=== PATIENT | male | born 1950 | race Caucasian/White ===

== ENCOUNTER → 2017-01-15 | Outpatient (REF) | payer SELFPAY ==
[~2017-01-15] MED LIST: APAP325T PO; ASPI81TA85 PO; ATOR1TAB18 PO; DIGO0.25 PO; ELIQ5TAB PO; LEVA750T PO; LOSA100T36 PO; METO25TA74 PO; METO50TA2 PO; MULT1TAB8 PO
[2017-01-15 09:26] LABS: BASO % 0.8 % (0.0-1.0); EOS # 0.4 K/mm3 (0.0-0.50); LARGE UNSTAINED CELL # 0.2 K/mm3 (0.0-0.4); LARGE UNSTAINED CELL % 3.2 % (0.0-4.0); LYMPH # 1.5 K/mm3 (1.5-4.5); LYMPH % 25.5 % (24.0-44.0); MEAN CORPUSCULAR HEMOGLOBIN 31.5 pg (27.0-33.0); MEAN CORPUSCULAR HGB CONC 33.6 g/dl (32.0-36.5); MEAN CORPUSCULAR VOLUME 93.6 fl (80.0-96.0); MONO # 0.5 K/mm3 (0.0-0.8); MONO % 7.9 % (0.0-5.0); NEUTROPHILS # 3.3 K/mm3 (1.8-7.7); NEUTROPHILS % 55.7 % (36.0-66.0); PLATELET COUNT, AUTOMATED 160 k/mm3 (150-450); RED CELL DISTRIBUTION WIDTH 13.2 % (11.5-14.5); WHITE BLOOD COUNT 5.9 K/mm3 (4.0-10.0)
[2017-01-15 10:06] LABS: ALBUMIN 3.5 GM/DL (3.2-5.2); ALBUMIN/GLOBULIN RATIO 0.92 (1.00-1.93); ALKALINE PHOSPHATASE 91 U/L (45-117); ALT/SGPT 32 U/L (12-78); ANION GAP 8 MEQ/L (8-16); AST/SGOT 27 U/L (15-37); BILIRUBIN,TOTAL 0.5 MG/DL (0.2-1.0); BLOOD UREA NITROGEN 24 MG/DL (7-18); CALCIUM LEVEL 8.7 MG/DL (8.8-10.2); CARBON DIOXIDE LEVEL 27 MEQ/L (21-32); CHLORIDE LEVEL 108 MEQ/L (98-107); CHOLESTEROL LEVEL 110 MG/DL (<200); GLOMERULAR FILTRATION RATE > 60.0 (>49); GLUCOSE, FASTING 90 MG/DL (80-110); POTASSIUM SERUM 4.3 MEQ/L (3.5-5.1); SODIUM LEVEL 143 MEQ/L (136-145); TOTAL PROTEIN 7.3 GM/DL (6.4-8.2); TRIGLYCERIDES LEVEL 71 MG/DL (<150)
== END ==
LOC: SKLAB3 08:00
PROVIDERS: ATTEND Family Medicine
DX: I10 Essential (primary) hypertension (principal); E78.5 Hyperlipidemia, unspecified; I48.91 Unspecified atrial fibrillation

== ENCOUNTER → 2017-03-27 | Outpatient (REF) | payer MEDICARE ==
[2017-03-27 08:00] LABS: CALCIUM LEVEL 8.9 MG/DL (8.8-10.2); CREATININE FOR GFR 1.28 MG/DL (0.70-1.30); GLOMERULAR FILTRATION RATE 59.5 (>49); POTASSIUM SERUM 3.7 MEQ/L (3.5-5.1)
== END ==
LOC: SKLAB3 08:00
PROVIDERS: ATTEND Family Medicine
DX: I50.9 Heart failure, unspecified (principal)

== ENCOUNTER → 2017-04-16 | Outpatient (REF) | payer MEDICARE ==
[~2017-04-16] MED LIST changes: +ACEP650S PR; +ACUL0.5S OD; +ALDA25TA2 PO; +ANUS2.5C2 PR; -APAP325T PO; +APAP325T4 PO; +ASPI81CH32 PO; -ATOR1TAB18 PO; +ATOR40TA75 PO; +ATOR80TA59 PO; +CHLO125TA PO; +DULC10SU2 PR; +ENEMENE6 PR; +FERR1TAB8 PO; +KETO5OPD OD; -LEVA750T PO; +LEVA750T7 PO; +LOSA50TA20 PO; +METO1TAB32 PO; +METO1TAB7 PO; -METO25TA74 PO; -METO50TA2 PO; +METO50TA7 PO; +MILKSUS PO; +MIRA33504 PO; +PANT40TA2 PO; +PRED1SUS OD; +PREDFORTE OU; +REFR0.5D8 OU; +REFR1DRO8 OU; +REFRESH PM; +REFROIN OP; +ROBILIQ PO; +SENN-23 PO; +SENN8.6C PO; +TOBR0.3S OD; +TYLE325T5 PO
[2017-04-16 09:24] LABS: BASO % 0.6 % (0.0-1.0); EOS # 0.5 K/mm3 (0.0-0.50); EOS % 6.9 % (0.0-3.0); LARGE UNSTAINED CELL # 0.2 K/mm3 (0.0-0.4); LARGE UNSTAINED CELL % 2.1 % (0.0-4.0); LYMPH # 1.4 K/mm3 (1.5-4.5); LYMPH % 20.7 % (24.0-44.0); MEAN CORPUSCULAR HEMOGLOBIN 32.8 pg (27.0-33.0); MEAN CORPUSCULAR HGB CONC 34.4 g/dl (32.0-36.5); MEAN CORPUSCULAR VOLUME 95.2 fl (80.0-96.0); MONO # 0.5 K/mm3 (0.0-0.8); MONO % 7.5 % (0.0-5.0); NEUTROPHILS # 4.3 K/mm3 (1.8-7.7); NEUTROPHILS % 62.2 % (36.0-66.0); PLATELET COUNT, AUTOMATED 158 k/mm3 (150-450); RED CELL DISTRIBUTION WIDTH 13.6 % (11.5-14.5); WHITE BLOOD COUNT 6.9 K/mm3 (4.0-10.0)
[2017-04-16 10:14] LABS: ALBUMIN 3.5 GM/DL (3.2-5.2); ALBUMIN/GLOBULIN RATIO 0.92 (1.00-1.93); BILIRUBIN,TOTAL 0.7 MG/DL (0.2-1.0); CALCIUM LEVEL 8.9 MG/DL (8.8-10.2); CREATININE FOR GFR 1.58 MG/DL (0.70-1.30); GLOMERULAR FILTRATION RATE 46.7 (>49); POTASSIUM SERUM 4.5 MEQ/L (3.5-5.1); TOTAL PROTEIN 7.3 GM/DL (6.4-8.2)
== END ==
LOC: SKLAB3 07:00
PROVIDERS: ATTEND Family Medicine
DX: I10 Essential (primary) hypertension (principal); I48.91 Unspecified atrial fibrillation

== ENCOUNTER 2017-07-04 07:58 | Day surgery (SDC) | payer MEDICARE, MEDICAID ==
[~2017-07-04] VITALS: Ht 167.6 cm; Wt 83.2 kg
[~2017-07-04 07:58] MED LIST changes: -ACEP650S PR; +ACETYLCHOLINE OPHTH SOLN 1% 2ML (MIOCHOL-E) As Ordered ONE; -ACUL0.5S OD; -ANUS2.5C2 PR; -ASPI81CH32 PO; -ATOR40TA75 PO; +BALANCED SALT IRRIGATION SOLUTION 500ML BAG (FOR OR EYE MACHINE) As Ordered ONE; +CEFUROXIME 1MG/0.1ML INTRACAMERAL INJ As Ordered ONE; +CYCLOPENTOLATE 2% OPHTH SOLN 2ML BTL OD ONE; -DULC10SU2 PR; -ENEMENE6 PR; -FERR1TAB8 PO; +HEALON DUET (HEALON 10MG/ML 0.55ML & HEALON ENDOCOAT 30MG/ML 0.85ML) As Ordered ONE; -KETO5OPD OD; +LIDOCAINE 1% SDV 5 ML VIAL As Ordered ONE; +LIDOCAINE 3.5 % 1ML OPHTH TOPICAL GEL OU ONE; -LOSA50TA20 PO; -MILKSUS PO; -MIRA33504 PO; +OFLOXACIN 0.3 % (OCUFLOX) OPTH SOL 5ML OD ONE; -PANT40TA2 PO; +PHENYLEPHRINE 2.5% OPHTH SOL 2ML OD ONE; +POVIDONE-IODINE 5% OPHTH PREP SOL 30ML As Ordered ONE; -PRED1SUS OD; -PREDFORTE OU; -REFR0.5D8 OU; -REFR1DRO8 OU; -REFRESH PM; -REFROIN OP; -ROBILIQ PO; -SENN-23 PO; -SENN8.6C PO; -TOBR0.3S OD; +TROPICAMIDE 1% OPHTH SOLN 2ML OD ONE; -TYLE325T5 PO
[2017-07-04] MEDS ORDERED: LR 1,000 ML IV ONE (08:00)
[2017-07-04] MEDS ORDERED: TROPICAMIDE 1% OPHTH SOLN 2ML As Ordered ONE (08:05)
[2017-07-04] MEDS ORDERED: OFLOXACIN 0.3 % (OCUFLOX) OPTH SOL 5ML As Ordered ONE (08:05)
[2017-07-04] MEDS ORDERED: PHENYLEPHRINE 2.5% OPHTH SOL 2ML As Ordered ONE (08:05)
[2017-07-04] MEDS ORDERED: CYCLOPENTOLATE 2% OPHTH SOLN 2ML BTL As Ordered ONE (08:05)
[2017-07-04] MEDS ORDERED: ELIQ5TAB PO (08:33)
[2017-07-04] MEDS ORDERED: ACUL0.5S OD (08:33)
[2017-07-04] MEDS ORDERED: SENN8.6C PO (08:33)
[2017-07-04] MEDS ORDERED: REFR1DRO8 OU (08:33)
[2017-07-04 09:45] VITALS: BP 115/58
--- NOTE | 2017-07-04 10:42 | RO ---
DATE OF PROCEDURE: 07/04/2017 PREPROCEDURE DIAGNOSIS: Age-related nuclear cataract, right eye. POSTPROCEDURE DIAGNOSIS: Age-related nuclear cataract, right eye. PROCEDURE PERFORMED: Phacoemulsification and posterior chamber intraocular lens implantation, right eye. The lens used is a PCB 00 20.5 diopter. SURGEON: Lin Beckett MD DIRECTOR OF MECHANICAL ENGINEERING: ANESTHESIA: Topical with sedation. DESCRIPTION OF PROCEDURE: The patient was prepped and draped in the usual fashion. A lid speculum was placed between the lids. The eye was fixated. A stab incision was made to the anterior chamber, and 1% nonpreserved lidocaine was instilled. Then, viscoelastic was instilled. The eye was refixated. A 2.75 mm sapphire keratome was used to make a clear corneal temporal limbal incision. Capsulorrhexis was begun with a 30-gauge bent needle and then carried out in a circular fashion with capsulorrhexis forceps. The lens was hydrodissected, and then the phacoemulsification unit was used to make a groove in the nucleus in two meridians. The nucleus was then cracked into four quadrants. Each quadrant was removed with the phacoemulsification unit. Any remaining cortex was removed with the irrigation and aspiration (I and A) unit. Capsular bag was refilled with viscoelastic. A posterior chamber intraocular lens was placed in the capsular bag without difficulty. Any remaining viscoelastic was removed with the I and A unit. The wound was hydrated, and Miochol and cefuroxime were instilled into the anterior chamber. The patient tolerated the procedure well and went to the recovery room in stable condition.
== END 2017-07-04 10:15 | disposition home or self-care (01) ==
LOC: M SDC 07:58
PROVIDERS: ATTEND Ophthalmology
DX: H25.11 Age-related nuclear cataract, right eye (principal); I10 Essential (primary) hypertension; I48.91 Unspecified atrial fibrillation; E78.5 Hyperlipidemia, unspecified; Z79.82 Long term (current) use of aspirin; Z79.899 Other long term (current) drug therapy

== ENCOUNTER 2017-07-06 18:58 | Inpatient (IN) | payer MEDICARE, MEDICAID ==
[~2017-07-06] VITALS: Ht 167.6 cm; Wt 85.7 kg
[~2017-07-06 18:58] MED LIST changes: -ACEP650S PR; -ANUS2.5C2 PR; -ASPI81CH32 PO; -ATOR40TA75 PO; -DULC10SU2 PR; -ENEMENE6 PR; -FERR1TAB8 PO; -KETO5OPD OD; -LOSA50TA20 PO; -MILKSUS PO; -MIRA33504 PO; -PANT40TA2 PO; -PRED1SUS OD; -PREDFORTE OU; -REFR0.5D8 OU; -REFRESH PM; -REFROIN OP; -ROBILIQ PO; -SENN-23 PO; -TOBR0.3S OD; -TYLE325T5 PO
[2017-07-06] MEDS ORDERED: REFRESH PM (19:30)
[2017-07-06] MEDS ORDERED: PRED1SUS OD ×3 (19:30→22:15)
[2017-07-06] MEDS ORDERED: CHLO125TA PO (19:30)
[2017-07-06] MEDS ORDERED: PREDFORTE OU (19:30)
[2017-07-06] MEDS ORDERED: REFR0.5D8 OU (19:30)
[2017-07-06] MEDS ORDERED: ACUL0.5S OD (19:30)
[2017-07-06] MEDS ORDERED: TOBR0.3S OD ×2 (19:30)
[2017-07-06] MEDS ORDERED: LOSA50TA20 PO (19:30)
[2017-07-06 20:54] LABS: ADD MORPHOLOGY? YES; BASO % 0.4 % (0.0-1.0); EOS % 0.2 % (0.0-3.0); INR 1.69; LARGE UNSTAINED CELL # 0.1 K/mm3 (0.0-0.4); LARGE UNSTAINED CELL % 1.4 % (0.0-4.0); LYMPH # 1.2 K/mm3 (1.5-4.5); LYMPH % 12.7 % (24.0-44.0); MEAN CORPUSCULAR HEMOGLOBIN 31.3 pg (27.0-33.0); MEAN CORPUSCULAR HGB CONC 30.5 g/dl (32.0-36.5); MEAN CORPUSCULAR VOLUME 102.5 fl (80.0-96.0); MONO # 0.7 K/mm3 (0.0-0.8); MONO % 7.3 % (0.0-5.0); NEUTROPHILS # 7.4 K/mm3 (1.8-7.7); PLATELET COUNT, AUTOMATED 205 k/mm3 (150-450); RED CELL DISTRIBUTION WIDTH 16.6 % (11.5-14.5); WHITE BLOOD COUNT 9.5 K/mm3 (4.0-10.0)
[2017-07-06 21:03] LABS: ALBUMIN 2.9 GM/DL (3.2-5.2); ALBUMIN/GLOBULIN RATIO 0.81 (1.00-1.93); ALKALINE PHOSPHATASE 64 U/L (45-117); ALT/SGPT 23 U/L (12-78); ANION GAP 6 MEQ/L (8-16); AST/SGOT 20 U/L (15-37); BILIRUBIN,DIRECT < 0.1 MG/DL (0.0-0.2); BILIRUBIN,TOTAL 0.4 MG/DL (0.2-1.0); BLOOD UREA NITROGEN 69 MG/DL (7-18); CALCIUM LEVEL 8.2 MG/DL (8.8-10.2); CARBON DIOXIDE LEVEL 26 MEQ/L (21-32); CHLORIDE LEVEL 112 MEQ/L (98-107); CREATININE FOR GFR 1.88 MG/DL (0.70-1.30); GLOMERULAR FILTRATION RATE 38.1 (>49); GLUCOSE, FASTING 158 MG/DL (80-110); POTASSIUM SERUM 4.8 MEQ/L (3.5-5.1); SODIUM LEVEL 144 MEQ/L (136-145); TOTAL PROTEIN 6.5 GM/DL (6.4-8.2)
[2017-07-06] MEDS ORDERED: PANTOPRAZOLE 40MG INJ (PROTONIX) (C9113) IV ONE (21:45)
[2017-07-06] MEDS ORDERED: ASPI81CH32 PO (22:01)
[2017-07-06 22:02] LABS: ANISOCYTOSIS 2+; HYPOCHROMASIA 2+; POLYCHROMASIA 1+
[2017-07-06] MEDS ORDERED: ATOR40TA75 PO (22:07)
[2017-07-06] MEDS ORDERED: REFROIN OP (22:07)
[2017-07-06] MEDS ORDERED: KETO5OPD OD (22:13)
[2017-07-06] MEDS ORDERED: SENN-23 PO (22:13)
[2017-07-06] MEDS ORDERED: PANTOPRAZOLE SODIUM 40 MG in D5W MINI-BAG PLUS 50 ML IV SCH (22:15)
[2017-07-06] MEDS ORDERED: ONDANSETRON 4MG/2ML VIAL (J2405) IV ONE (22:15)
[2017-07-06] MEDS ORDERED: MIRA33504 PO (22:21)
[2017-07-06] MEDS ORDERED: MILKSUS PO (22:21)
[2017-07-06] MEDS ORDERED: DULC10SU2 PR (22:21)
[2017-07-06] MEDS ORDERED: ANUS2.5C2 PR (22:21)
[2017-07-06] MEDS ORDERED: TYLE325T5 PO (22:21)
[2017-07-06] MEDS ORDERED: ACEP650S PR (22:21)
[2017-07-06] MEDS ORDERED: ROBILIQ PO (22:21)
[2017-07-06] MEDS ORDERED: ENEMENE6 PR (22:21)
[2017-07-06] MEDS ORDERED: ONDANSETRON 4MG/2ML VIAL (J2405) IV PRN (23:30)
--- NOTE | 2017-07-06 23:32 | HPEPDOC ---
Medical History and Physical Date of Admission Jul 06, 2017 at 22:03 History and Physical PRIMARY CARE PROVIDER: Dr. White ATTENDING: Dr. Jeramie Crooks CHIEF COMPLAINT: Abnormal labs HISTORY OF PRESENT ILLNESS: This is a 67-year-old male past medical history of atrial fibrillation on Eliquis, cerebral palsy, hypertension, iron deficiency anemia, hyperlipidemia, CKD stage III baseline creatinine 1.5-1.7. Patient was sent to the emergency department after his hemoglobin was noted to be less than 5. Patient denies any chest pain/shortness breath/palpitations. No nausea/vomiting/ abdominal pain. Histories are limited given his baseline cerebral palsy. He denies any melanotic/bloody stools/hemoptysis/hematemesis/hematuria. In the ED patient was found to have positive FOBT. PAST MEDICAL HISTORY: As per HPI PAST SURGICAL HISTORY: Hemorrhoidectomy, tonsillectomy SOCIAL HISTORY: No tobacco, alcohol, illicit drug use. History of cerebral palsy. FAMILY HISTORY: Noncontributory ALLERGIES: Please see below. REVIEW OF SYSTEMS: HEENT: Denies sore throat/headache CARDIOVASCULAR: Denies chest pain/palpitations RESPIRATORY: Denies shortness of breath/cough GASTROINTESTINAL: denies nausea/vomiting GENITOURINARY: Denies dysuria/urinary urgency. MUSCULOSKELETAL: Denies myalgias/arthralgias NEUROLOGICAL: Denies any focal weakness HOME MEDICATIONS: Please see below. PHYSICAL EXAMINATION: Vitals: (see below) General: No acute distress, laying comfortably in bed. HEENT: Moist mucous membranes. Neck: No JVD or lymphadenopathy Cardiac: Irregularly irregular. 3/6 systolic murmur at the left lower sternal border. Pulm: Diminished breath sounds at the bases b/l. No wheezing, rhonchi Abd: NT/ND + BS. Obese Ext: Trace to 1+ pitting edema bilateral lower extremities. No cyanosis Following commands, moving all extremities. LABORATORY DATA: See below. IMAGING: MICROBIOLOGY: Please see below. ASSESSMENT/PLAN: 1. Acute blood loss anemia, likely secondary to upper GI bleed. Hemoglobin 5.0. Last hemoglobin in March noted to be 13. Patient is currently asymptomatic. Will be transfused 3 units PRBC. On protonic strip. GI consulted. Monitor on telemetry. CBC every 6 hours. No acute bleeding at this time. Hold aspirin and Eliquis for now. 2. Hypertension- hold BP meds for now. 3. Atrial fibrillation- hold aspirin and Eliquis for now. 4. History of cerebral palsy 5. CK D stage III- baseline creatinine 1.5-1.7. Stable. 6. History of iron deficiency anemia DVT prophylaxis- SCDs. Patient was followed by Dr. Jeramie Crooks starting 07/07/17 at 7 AM. Vital Signs Vital Signs Date Time Temp Pulse Resp B/P (MAP) Pulse Ox O2 Delivery O2 Flow Rate FiO2 07/06/17 22:00 07/06/17 21:58 78 96 07/06/17 21:57 97.3 18 Room Air Laboratory Data Labs 24H Laboratory Tests 2 07/06/17 19:52: White Blood Count 9.5, Red Blood Count 1.59L, Hemoglobin 5.0*L, Hematocrit 16.3L , Mean Corpuscular Volume 102.5H, Mean Corpuscular Hemoglobin 31.3, Mean Corpuscular Hemoglobin Concent 30.5L, Red Cell Distribution Width 16.6H, Platelet Count 205, Neutrophils (%) (Auto) 78.0H, Lymphocytes (%) (Auto) 12.7L, Monocytes (%) (Auto) 7.3H, Eosinophils (%) (Auto) 0.2, Basophils (%) (Auto) 0.4 , Neutrophils # (Auto) 7.4, Lymphocytes # (Auto) 1.2L, Monocytes # (Auto) 0.7, Eosinophils # (Auto) 0.0, Basophils # (Auto) 0.0, Large Unclassified Cells % 1.4 , Large Unclassified Cells # 0.1, Platelet Estimate NORMAL, Polychromasia 1+, Hypochromasia 2+, Anisocytosis 2+, Macrocytosis 1+, Prothrombin Time 20.4H, Prothromb Time International Ratio 1.69, Activated Partial Thromboplast Time 34.5, Anion Gap 6L, Glomerular Filtration Rate 38.1L, Calcium Level 8.2L, Aspartate Amino Transf (AST/SGOT) 20, Alanine Aminotransferase (ALT/SGPT) 23, Alkaline Phosphatase 64, Total Bilirubin 0.4, Direct Bilirubin < 0.1, Total Creatine Kinase 94, Creatine Kinase MB 3.3, Creatine Kinase MB Relative Index 3.51, Troponin I 0.02, Total Protein 6.5, Albumin 2.9L, Albumin/Globulin Ratio 0.81L CBC/BMP Laboratory Tests 07/06/17 19:52 Red Blood Count 1.59 L, Mean Corpuscular Volume 102.5 H, Mean Corpuscular Hemoglobin 31.3, Mean Corpuscular Hemoglobin Concent 30.5 L, Red Cell Distribution Width 16.6 H, Neutrophils (%) (Auto) 78.0 H, Lymphocytes (%) (Auto ) 12.7 L, Monocytes (%) (Auto) 7.3 H, Eosinophils (%) (Auto) 0.2, Basophils (%) (Auto) 0.4, Neutrophils # (Auto) 7.4, Lymphocytes # (Auto) 1.2 L, Monocytes # ( Auto) 0.7, Eosinophils # (Auto) 0.0, Basophils # (Auto) 0.0 Home Medications Scheduled (Multi Vitamin Daily) 1 Tab Tab, 1 TAB PO DAILY (Aspirin 81 Low Dose) 81 Mg Chw, 81 MG PO DAILY (Refresh P.m.) 1 Oin Oin, 1 OIN OP QHS Acetaminophen (Apap) 325 Mg Tab, 650 MG PO QHS Apixaban Base (Eliquis) 5 Mg Tab, 5 MG PO BID Atorvastatin Calcium (Atorvastatin Calcium) 40 Mg Tab, 40 MG PO 3XW SUNDAY, SUNDAY, AND SUNDAY Carboxymethylcellulose Sodium (Refresh Tears) 0.5 % Arnel, 0.5 % OU QID Chlorthalidone (Chlorthalidone) 12.5 Mg Halftab, 12.5 MG PO DAILY Docusate Sod/Senna (Senna-S 8.6-50 mg) 1 Tab Tab, 1 TAB PO DAILY Ketorolac Tromethamine (Ketorolac Tromethamine) 0.5 % Heather, 1 DROP OD QID TO STOP 08/01/17 Losartan Potassium (Losartan Potassium) 50 Mg Tab, 50 MG PO QHS Metoprolol Succinate (Metoprolol Succinate ER) 50 Mg Tab, 50 MG PO DAILY Prednisolone Acetate (Pred Forte 1% Opth Susp) 1 % Rosalba, 1 DROP OD QID TO END 07/18/17 Spironolactone (Aldactone) 25 Mg Tab, 12.5 MG PO DAILY Tobramycin Sulfate (Tobrex 0.3% Opth Heather) 0.3 % Heather, 1 DROP OD QID TO END 9/13/17 Scheduled PRN (Enema Disposable) 1 Jensen Jensen, 1 JENSEN [place] DAILY PRN for CONSTIPATION (Robitussin Peak Cold Coug 10-200 mg/5Ml) 1 Liq Liq, 10 ML PO Q4H PRN for COUGH Acetaminophen (Acephen) 650 Mg Sup, 650 MG VA Q4H PRN for PAIN / FEVER Acetaminophen (Tylenol) 325 Mg Tab, 650 MG PO Q4H PRN for PAIN / FEVER Bisacodyl (Dulcolax) 10 Mg Sup, 10 MG VA DAILY PRN for CONSTIPATION Hydrocortisone (Anusol-Hc) 2.5 % Cre, 1 DOSE VA QID PRN for HEMORRHOIDS Milk Of Magnesia (Milk of Magnesia) 1,200 Mg/15 Ml Rosalba, 30 ML PO DAILY PRN for CONSTIPATION Polyethylene Glycol (Miralax) 1 Pow Pow, 1 PKT PO DAILY PRN for CONSTIPATION Allergies Coded Allergies: No Known Allergies (Verified , 07/04/17) JOANN WHITE MD Jul 06, 2017 23:32
[2017-07-07] VITALS (8 sets, daily range): BP systolic 111–136; BP diastolic 55–74
[2017-07-07] MEDS: PANTOPRAZOLE SODIUM 40 MG in D5W MINI-BAG PLUS 50 ML IV SCH ×4 (01:55→14:26)
[2017-07-07 05:17] LABS: MEAN CORPUSCULAR HEMOGLOBIN 31.7 pg (27.0-33.0); MEAN CORPUSCULAR HGB CONC 32.8 g/dl (32.0-36.5); RED CELL DISTRIBUTION WIDTH 16.3 % (11.5-14.5); WHITE BLOOD COUNT 10.4 K/mm3 (4.0-10.0)
[2017-07-07 05:31] LABS: MEAN CORPUSCULAR VOLUME 96.6 fl (80.0-96.0)
[2017-07-07 07:59] LABS: ANION GAP 11 MEQ/L (8-16); BLOOD UREA NITROGEN 75 MG/DL (7-18); CALCIUM LEVEL 8.4 MG/DL (8.8-10.2); CARBON DIOXIDE LEVEL 21 MEQ/L (21-32); CHLORIDE LEVEL 116 MEQ/L (98-107); CREATININE FOR GFR 1.82 MG/DL (0.70-1.30); GLOMERULAR FILTRATION RATE 39.5 (>49); GLUCOSE, FASTING 118 MG/DL (80-110); MAGNESIUM LEVEL 2.7 MG/DL (1.8-2.4); PERCENT SATURATION 4.2 % (19.7-50.0); SODIUM LEVEL 148 MEQ/L (136-145); TOTAL IRON BINDING CAPACITY 288 UG/DL (250-450)
--- NOTE | 2017-07-07 08:16 | ECGEPIP ---
Stationary ECG Study [facility] - ED Test Date: 2017-07-06 Pat Name: ELENITA FUENTES Department: Room: [place] [address] Gender: M Medical Authorization Specialist: suzan : [id number] Requested By: DEMARCUS Roque Order Number: [id number] Reading MD: Iqra Guerrero Measurements Intervals [place] Rate: 90 P: 32 RI: 155 QRS: -7 QRSD: 122 T: 6 QT: 359 QTc: 441 Interpretive Statements SINUS RHYTHM LEFT VENTRICULAR HYPERTROPHY AND ST-T CHANGE INCREASED RATE 08/04/16 Electronically Signed On 07-07-2017 8:16:29 EDT by Iqra Guerrero
--- NOTE | 2017-07-07 08:55 | REP ---
Clinical: Shortness of breath . Comparison: 01/17/2016 . Findings: The mediastinum and cardiac silhouette are stable and within normal limits for portable technique. The lung silverman are clear without acute consolidation, effusion, or pneumothorax. Skeletal structures are intact. Impression: No acute cardiopulmonary process appreciated. Signed by Benjamin Priest MD 07/07/2017 08:46 A
[2017-07-07] MEDS: PANTOPRAZOLE 40MG INJ (PROTONIX) (C9113) IV SCH (09:00)
[2017-07-07 09:05] LABS: MEAN CORPUSCULAR HEMOGLOBIN 32.3 pg (27.0-33.0); MEAN CORPUSCULAR HGB CONC 33.5 g/dl (32.0-36.5); MEAN CORPUSCULAR VOLUME 96.4 fl (80.0-96.0); RED CELL DISTRIBUTION WIDTH 15.8 % (11.5-14.5); WHITE BLOOD COUNT 11.2 K/mm3 (4.0-10.0)
[2017-07-07] MEDS: METOPROLOL SUCC (TopROL XL) 50MG **XL** TAB PO SCH (09:36)
[2017-07-07] MEDS: SPIRONOLACTONE 12.5MG PER 1/2 TABLET PO SCH (09:36)
[2017-07-07 14:17] LABS: MEAN CORPUSCULAR HEMOGLOBIN 32.4 pg (27.0-33.0); MEAN CORPUSCULAR HGB CONC 33.7 g/dl (32.0-36.5); MEAN CORPUSCULAR VOLUME 96.3 fl (80.0-96.0); RED CELL DISTRIBUTION WIDTH 15.8 % (11.5-14.5); WHITE BLOOD COUNT 12.1 K/mm3 (4.0-10.0)
--- NOTE | 2017-07-07 15:15 | IPN ---
DATE: 07/07/2017 Clement was seen in the progressive care unit (PCU). He was admitted with severe anemia. He has a history of atrial fibrillation for which he is on anticoagulant therapy with Eliquis. Stage III chronic kidney disease. He had some labs done routinely yesterday, came back after hours, called me, the on-call physician, indicated that his hemoglobin was 4.8. Hemoglobin 3 months previously was 13.9. He has a history of some anemia, and it looks like he got down in the mid 8's back in 2016. He had heme positive stool in the emergency room, has had no angie bleeding, hematemesis, melena, rectal bleeding. Denies any epistaxis or urinary bleeding. PHYSICAL EXAMINATION: Blood pressure 133/74, pulse 68, respiratory rate 20, 94% oxygen saturation. General Appearance: He is resting. He has cerebral palsy. No jugular venous distention (JVD). Lungs: Decreased breath sounds but clear. Heart: Regular rhythm with a 1/6 systolic ejection murmur. Abdomen: Soft, nontender, no masses. No peripheral edema. LABORATORY: Hemoglobin was 4.8 yesterday. It was 5.0 on recheck. After three units of packed red blood cells, it is up to 9.1. Reticulocyte count high. Sodium 148, potassium 5.0, BUN 75, creatinine 1.8, glucose 118. His percent saturation was low. TIBC normal. B12, folate pending. Reticulocyte hemoglobin content normal. IMPRESSION: 1. Severe anemia from rectal bleeding/acute blood loss. He has been transfused up to a safer level of anemia. I will consult gastroenterology to see him for endoscopy. Anticoagulant (Eliquis) and aspirin are both on hold. 2. Hypertension. His blood pressures are under good control. His antihypertensives are on hold. He uses chlorthalidone 12.5 mg, losartan 50 mg daily, metoprolol succinate 50 mg daily, spironolactone 25 mg daily. 3. Hyperlipidemia. Restart his atorvastatin 40 mg daily. 4. Recent cataract extraction. Restart his eye drops for which he was on a routine after his surgery.
[2017-07-07] MEDS: prednisoLONE ACET 1% OPHTH SUSP 5ML OD SCH ×2 (18:40→21:46)
[2017-07-07] MEDS: TOBRAMYCIN 0.3% OPHTH SOLN 5 ML OD SCH ×2 (18:41→21:46)
[2017-07-07] MEDS: KETOROLAC 0.5% OPHTH SOLN OD SCH ×2 (18:41→21:45)
[2017-07-07 19:51] LABS: MEAN CORPUSCULAR HEMOGLOBIN 31.6 pg (27.0-33.0); MEAN CORPUSCULAR HGB CONC 33.3 g/dl (32.0-36.5); MEAN CORPUSCULAR VOLUME 94.8 fl (80.0-96.0); WHITE BLOOD COUNT 10.7 K/mm3 (4.0-10.0)
[2017-07-07] MEDS: ATORVASTATIN 20 MG TAB PO SCH (21:41)
--- NOTE | 2017-07-07 23:22 | CR.PDOC ---
[facility] Consultation Consultation DATE OF CONSULTATION: Jul 07, 2017 at 16:45 REFERRING PROVIDER: Dr. Tony Craft. PRIMARY CARE PROVIDER: Dr. White ATTENDING: Dr. Jeramie Crooks CHIEF COMPLAINT: severe anemia - suspected GI bleeding. HISTORY OF PRESENT ILLNESS: 67-year-old male patient with HTN, HLD, CKD stage III ( Cr - 1.7), atrial fibrillation on Eliquis, cerebral palsy ( patient is AAO x 3), was admitted for symptoms of anemia. IN ER noted with Heme positive stools and GI was consulted for possible GI bleeding. Patient is examined bedside - He is alert and oriented and appropriately answering the questions. He denies any overt external bleeding except occasional hemorrhoidal bleeding on wiping and denied any other GI symptoms. Pertinent negative symptoms: Patient denies nausea, vomiting, diarrhea, abdominal pain, loss of appetite, early satiety or unintentional weight loss. No history of hematemesis, melena or hematochezia, hemoptysis, hematuria. Patient reports regular bowel movements. OFF Note: patient reported that he had colonoscopy in 2013 -done by Dr. Yeboah -- normal colonoscopy except hemorrhoids. ( report reviewed in provation -- same - recommended to repeat in 10 years. PAST MEDICAL HISTORY: As above. HOME MEDICATIONS: Reviewed. On eliquis. -- stopped since admission - last dose on Sunday. PAST SURGICAL HISTORY: Hemorrhoidectomy, tonsillectomy SOCIAL HISTORY: No tobacco, alcohol, illicit drug use. History of cerebral palsy. FAMILY HISTORY: Noncontributory ALLERGIES: Please see below. Prior Colonoscopy -- in 2013 - by Dr. Kyle -- normal except hemorrhoids- recommended to repeat in 10 years. 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 Skin: No rash : No hematuria, No burning sensation of the urine ENT: No ear discharge/ pain, No dysphagia. Eyes: No photophobia. PHYSICAL EXAMINATION: Vitals: noted. No fever, stable BP. General: No acute distress, AAO x 3. HEENT: Mild pallor, no icterus. Neck: No JVD or lymphadenopathy CVS: Rhythm irregular, heart sounds heard, no JVD.. RESP: Bilateral breath sounds heard, No wheezing, rhonchi Abdomen: soft, non-distended, normal bowel sounds. Extremities: Mild 2+ pitting pedal edema. 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 no LABORATORY DATA: noted. IMAGING: reviewed. Impression: - Severe anemia with Occult blood in stool with recent colonoscopy - normal at clinic -- DDx- r/o PUD vs garstic mass. r/o esophagitis. Recommendations: - Patient educated about the test results in detail all his questions answered. - Patient educated about the need for EGD -- scheduled for Sunday. . - The procedure indications, benefits, risks ( including anesthesia complications and its complications, infection, bleeding, perforation and risk of urgent surgery, cardio-pulmonary arrest and even ). Patient verbalized understanding and given informed concent ( Patient reported that even though he had HCP he takes care pf his me - Please atate on - Patient educated about cessation of alcohol / smoking/ drugs. - Patient educated about the possible differential diagnosis and plan of care. All questions answered to the patient satisfaction and Patient verbalized understanding and agreed for plan of care. Laboratory Data Labs 24H Laboratory Tests 2 07/07/17 04:13: Absolute Reticulocyte Count 142H, Percent Reticulocyte Count 6.00H, Reticulocyte Hgb Content (CHr) 31.0, Anion Gap 11, Glomerular Filtration Rate 39.5L, Blood Urea Nitrogen 75H, Creatinine 1.82H, Sodium Level 148H, Potassium Level 5.0, Chloride Level 116H, Carbon Dioxide Level 21, Calcium Level 8.4L, Magnesium Level 2.7H, Iron Level 12L, Total Iron Binding Capacity 288, Transferrin % Saturation 4.2L CBC/BMP Laboratory Tests 07/07/17 04:13 Red Blood Count 2.38 L, Mean Corpuscular Volume 96.6 #H, Mean Corpuscular Hemoglobin 31.7, Mean Corpuscular Hemoglobin Concent 32.8, Red Cell Distribution Width 16.3 H, Calcium Level 8.4 L 07/07/17 08:29 Red Blood Count 2.69 L, Mean Corpuscular Volume 96.4 H, Mean Corpuscular Hemoglobin 32.3, Mean Corpuscular Hemoglobin Concent 33.5, Red Cell Distribution Width 15.8 H 07/07/17 13:58 Red Blood Count 2.82 L, Mean Corpuscular Volume 96.3 H, Mean Corpuscular Hemoglobin 32.4, Mean Corpuscular Hemoglobin Concent 33.7, Red Cell Distribution Width 15.8 H 07/07/17 19:43 Red Blood Count 2.77 L, Mean Corpuscular Volume 94.8, Mean Corpuscular Hemoglobin 31.6, Mean Corpuscular Hemoglobin Concent 33.3, Red Cell Distribution Width 16.0 H Allergies Coded Allergies: No Known Allergies (Verified , 07/04/17) Home Medications Scheduled (Multi Vitamin Daily) 1 Tab Tab, 1 TAB PO DAILY, (Reported) (Aspirin 81 Low Dose) 81 Mg Chw, 81 MG PO DAILY, (Reported) (Refresh P.m.) 1 Oin Oin, 1 OIN OP QHS, (Reported) Acetaminophen (Apap) 325 Mg Tab, 650 MG PO QHS, (Reported) Apixaban Base (Eliquis) 5 Mg Tab, 5 MG PO BID, (Reported) Atorvastatin Calcium (Atorvastatin Calcium) 40 Mg Tab, 40 MG PO 3XW, (Reported) SUNDAY, SUNDAY, AND SUNDAY Carboxymethylcellulose Sodium (Refresh Tears) 0.5 % Arnel, 0.5 % OU QID, (Reported ) Chlorthalidone (Chlorthalidone) 12.5 Mg Halftab, 12.5 MG PO DAILY, (Reported) Docusate Sod/Senna (Senna-S 8.6-50 mg) 1 Tab Tab, 1 TAB PO DAILY, (Reported) Ketorolac Tromethamine (Ketorolac Tromethamine) 0.5 % Heather, 1 DROP OD QID, ( Reported) TO STOP 08/01/17 Losartan Potassium (Losartan Potassium) 50 Mg Tab, 50 MG PO QHS, (Reported) Metoprolol Succinate (Metoprolol Succinate ER) 50 Mg Tab, 50 MG PO DAILY, ( Reported) Prednisolone Acetate (Pred Forte 1% Opth Susp) 1 % Rosalba, 1 DROP OD QID, (Reported ) TO END 07/18/17 Spironolactone (Aldactone) 25 Mg Tab, 12.5 MG PO DAILY, (Reported) Tobramycin Sulfate (Tobrex 0.3% Opth Heather) 0.3 % Heather, 1 DROP OD QID, (Reported) TO END 07/11/17 Scheduled PRN (Enema Disposable) 1 Jensen Jensen, 1 JENSEN [place] DAILY PRN for CONSTIPATION, (Reported) (Robitussin Peak Cold Coug 10-200 mg/5Ml) 1 Liq Liq, 10 ML PO Q4H PRN for COUGH , (Reported) Acetaminophen (Acephen) 650 Mg Sup, 650 MG FL Q4H PRN for PAIN / FEVER, ( Reported) Acetaminophen (Tylenol) 325 Mg Tab, 650 MG PO Q4H PRN for PAIN / FEVER, ( Reported) Bisacodyl (Dulcolax) 10 Mg Sup, 10 MG FL DAILY PRN for CONSTIPATION, (Reported) Hydrocortisone (Anusol-Hc) 2.5 % Cre, 1 DOSE FL QID PRN for HEMORRHOIDS, ( Reported) Milk Of Magnesia (Milk of Magnesia) 1,200 Mg/15 Ml Rosalba, 30 ML PO DAILY PRN for CONSTIPATION, (Reported) Polyethylene Glycol (Miralax) 1 Pow Pow, 1 PKT PO DAILY PRN for CONSTIPATION, ( Reported) QUINTIN CASTRO MD Jul 07, 2017 23:22
[2017-07-08 04:00] VITALS: BP 115/58
[2017-07-08 04:47] LABS: MEAN CORPUSCULAR HEMOGLOBIN 32.2 pg (27.0-33.0); MEAN CORPUSCULAR HGB CONC 33.5 g/dl (32.0-36.5); MEAN CORPUSCULAR VOLUME 96.2 fl (80.0-96.0); RED CELL DISTRIBUTION WIDTH 15.6 % (11.5-14.5); WHITE BLOOD COUNT 9.1 K/mm3 (4.0-10.0)
[2017-07-08 04:56] LABS: CALCIUM LEVEL 8.5 MG/DL (8.8-10.2); CREATININE FOR GFR 1.74 MG/DL (0.70-1.30); GLOMERULAR FILTRATION RATE 41.6 (>49); MAGNESIUM LEVEL 2.4 MG/DL (1.8-2.4)
[2017-07-08 08:00] VITALS: BP 142/70
[2017-07-08] MEDS: PANTOPRAZOLE 40MG INJ (PROTONIX) (C9113) IV SCH (09:23)
[2017-07-08] MEDS: SPIRONOLACTONE 12.5MG PER 1/2 TABLET PO SCH (09:24)
[2017-07-08] MEDS: KETOROLAC 0.5% OPHTH SOLN OD SCH ×4 (09:24→21:24)
[2017-07-08] MEDS: prednisoLONE ACET 1% OPHTH SUSP 5ML OD SCH ×4 (09:24→21:23)
[2017-07-08] MEDS: TOBRAMYCIN 0.3% OPHTH SOLN 5 ML OD SCH ×4 (09:24→21:24)
[2017-07-08] MEDS: METOPROLOL SUCC (TopROL XL) 50MG **XL** TAB PO SCH (09:24)
[2017-07-08 09:49] LABS: MEAN CORPUSCULAR HEMOGLOBIN 32.2 pg (27.0-33.0); MEAN CORPUSCULAR HGB CONC 33.3 g/dl (32.0-36.5); MEAN CORPUSCULAR VOLUME 96.6 fl (80.0-96.0); RED CELL DISTRIBUTION WIDTH 15.4 % (11.5-14.5)
[2017-07-08 12:00] VITALS: BP 139/80
--- NOTE | 2017-07-08 13:00 | IPN ---
DATE: 07/08/2017 Clement has had no hematemesis, bright red blood per rectum or melena. He has been seen by gastroenterology. The note has been reviewed. Plan is for esophagogastroduodenoscopy (EGD) tomorrow. Hemoglobin has been stable overnight. PHYSICAL EXAMINATION: Blood pressure 142/70, pulse 82, respiratory rate 18, 91% oxygen saturation on two liters, 97% this morning. General Appearance: He is resting comfortably in no distress. Lungs: Clear. Heart: Regular rhythm. Abdomen. Soft, nontender. No peripheral edema. Neurologic Exam: Nonfocal. LABORATORY: Hemoglobin is 9.8, platelets are normal. Sodium is up to 149, creatinine is stable at 1.7. IMPRESSION: 1. Severe anemia from acute blood loss secondary to presumed upper gastrointestinal (GI) bleeding. His Eliquis is on hold. Gastroenterology has seen him. Plan is for EGD tomorrow. Hemoglobin has been stable. Will discontinue the every 6 hour complete blood counts (CBCs). 2. Hypertension. Blood pressure well controlled off most of his antihypertensives. At this point, he is only on his metoprolol. 3. Hyperlipidemia. Continue his atorvastatin 40 mg daily. 4. Cerebral palsy. No changes. 5. Recent cataract extraction. His eye drops were restarted yesterday. He probably could be discharged after his EGD tomorrow provided it does not show any significant lesion that would require a longer hospitalization. The patient is eager to get back to [facility].
[2017-07-08 20:00] VITALS: BP 122/77
[2017-07-08] MEDS: ATORVASTATIN 20 MG TAB PO SCH (21:24)
[2017-07-09] VITALS (9 sets, daily range): BP systolic 112–166; BP diastolic 60–75
[2017-07-09 05:47] LABS: MEAN CORPUSCULAR HEMOGLOBIN 31.5 pg (27.0-33.0); MEAN CORPUSCULAR HGB CONC 32.6 g/dl (32.0-36.5); MEAN CORPUSCULAR VOLUME 96.6 fl (80.0-96.0); RED CELL DISTRIBUTION WIDTH 14.9 % (11.5-14.5); WHITE BLOOD COUNT 7.8 K/mm3 (4.0-10.0)
[2017-07-09 06:04] LABS: CALCIUM LEVEL 8.6 MG/DL (8.8-10.2); CREATININE FOR GFR 1.72 MG/DL (0.70-1.30); GLOMERULAR FILTRATION RATE 42.2 (>49); POTASSIUM SERUM 4.4 MEQ/L (3.5-5.1)
[2017-07-09] MEDS: PANTOPRAZOLE 40MG INJ (PROTONIX) (C9113) IV SCH (08:24)
[2017-07-09] MEDS: METOPROLOL SUCC (TopROL XL) 50MG **XL** TAB PO SCH (08:24)
[2017-07-09] MEDS: TOBRAMYCIN 0.3% OPHTH SOLN 5 ML OD SCH ×4 (08:24→20:42)
[2017-07-09] MEDS: SPIRONOLACTONE 12.5MG PER 1/2 TABLET PO SCH (08:24)
[2017-07-09] MEDS: KETOROLAC 0.5% OPHTH SOLN OD SCH ×4 (08:24→20:41)
[2017-07-09] MEDS: prednisoLONE ACET 1% OPHTH SUSP 5ML OD SCH ×4 (08:24→20:42)
[2017-07-09 10:14] LABS: FOLATE > 24.0 NG/ML (>5.4); VITAMIN B12 LEVEL 368 PG/ML (247-911)
--- NOTE | 2017-07-09 11:28 | IPNPDOC ---
Subjective Date Seen The patient was seen on 07/09/17. Subjective Chief Complaint/HPI The patient is a 67-year-old male admitted with a reason for visit of Acute Blood Loss Anemia,Gi Bleed. Events since last encounter Planned EGD today with Dr. Murillo. c/o constipation. No BM x 4 days. ENT: Denies: Head Aches, Ear Pain, Dysphagia Pulmonary: Denies: Dyspnea, Cough Cardiovascular: Denies: Chest Pain, Palpitations, Orthopnea, Paroxysmal Noc. Dyspnea, Lt Headedness Gastrointestinal: Reports: Constipation, Denies: Nausea, Vomiting, Abdominal Pain Neurological: Denies: Weakness, Numbness, Change in speech, Confusion Psych: Reports: Mood Normal, Denies: Depression, Memory Issues Objective Physical Examination General Exam: Positive: Alert, No Acute Distress Chest Exam: Positive: Clear to auscultation, Normal air movement Heart Exam: Positive: Rate Normal, Regular Rhythm, Normal S1, Normal S2, Negative: Murmurs, Rubs Telemetry: Positive: No significant arrhythmia Abdomen Exam: Positive: Normal bowel sounds, Soft, Negative: Tenderness, Hepatospenomegaly Extremity Exam: Positive: Normal pulses, Negative: Clubbing, Cyanosis, Edema Psych Exam: Positive: Mental status NL, Mood NL, Oriented x 3 Assessment /Plan Problems (1) Gastric ulcer Problem Text: 07/09 EGD: Non-bleeding gastric ulcers with a clean ulcer base (Elijah Class III). Biopsied. - Gastritis. Biopsied. - Normal duodenal bulb and second portion of the duodenum. changed Protonix to 40 po BID, + Fe BID, check H pylori continue off asa 81 plan resume DOAC 07/11 if hgb is stable (2) Acute blood loss anemia Problem Text: S/p transfusion of 3 units. Hgb stable at 8.9 presented c hgb 4.8! (3) Cerebral palsy Status: Chronic Response to Treatment: Stable Problem Text: resident of [facility]. (4) Atrial fibrillation Status: Chronic Response to Treatment: Stable (5) HTN (hypertension) Status: Chronic Response to Treatment: Stable (6) Iron deficiency anemia Status: Chronic (7) Hyperlipidemia Status: Chronic Response to Treatment: Stable (8) CKD (chronic kidney disease) stage 3, GFR 30-59 ml/min Status: Chronic Response to Treatment: Stable Plan/VTE VTE Prophylaxis Ordered?: No VTE Exclusion Pharmacological: Active Bleeding VS, I&O, 24H, Fishbone Vital Signs/I&O Vital Signs Date Time Temp Pulse Resp B/P (MAP) Pulse Ox O2 Delivery O2 Flow Rate FiO2 07/09/17 10:32 97.5 83 19 141/81 94 Nasal Cannula 2.0 I&O- Last 24 Hours up to 6 AM 07/09/17 05:59 Intake Total 840 ml Output Total 800 ml Balance 40 ml Laboratory Data 24H LABS Laboratory Tests 2 07/09/17 05:07: Anion Gap 5L, Glomerular Filtration Rate 42.2L, Blood Urea Nitrogen 39H, Creatinine 1.72H, Sodium Level 146H, Potassium Level 4.4, Chloride Level 111H, Carbon Dioxide Level 30, Calcium Level 8.6L CBC/BMP Laboratory Tests 07/09/17 05:07 Red Blood Count 2.82 L, Mean Corpuscular Volume 96.6 H, Mean Corpuscular Hemoglobin 31.5, Mean Corpuscular Hemoglobin Concent 32.6, Red Cell Distribution Width 14.9 H, Calcium Level 8.6 L Carmen Gallardo Jul 09, 2017 11:28 Emre Jeffers M.D. Jul 09, 2017 16:17
[2017-07-09] MEDS ORDERED: PROPOFOL 200 MG/20 ML VIAL As Ordered ONE (13:45)
[2017-07-09] MEDS ORDERED: LIDOCAINE 2% INJ 100 MG/5 ML SDV (FOR ANES.) As Ordered ONE (13:45)
--- NOTE | 2017-07-09 14:14 | ROOR ---
Patient Name: Clement Johansen Procedure Date: 07/09/2017 1:45 PM Date of : 1950 Age: 67 Room: [facility] Gender: Male Note Status: Fish Flipper Override Procedure: Upper GI endoscopy Indications: Acute post hemorrhagic anemia Providers: Oscar Murillo MD Referring MD: Jeramie Crooks MD Requesting Provider: Medicines: Monitored Anesthesia Care Complications: No immediate complications. Procedure: Pre-Anesthesia Assessment: - Prior to the procedure, a History and Physical was performed, and patient medications and allergies were reviewed. The patient is competent. The risks and benefits of the procedure and the sedation options and risks were discussed with the patient. All questions were answered and informed consent was obtained. Patient identification and proposed procedure were verified by the physician, the nurse and the silviculture forester in the procedure room. Mental Status Examination: alert and oriented. Airway Examination: normal oropharyngeal airway and neck mobility. Respiratory Examination: clear to auscultation. CV Examination: normal. Prophylactic Antibiotics: The patient does not require prophylactic antibiotics. Prior Anticoagulants: The patient has taken no previous anticoagulant or antiplatelet agents. ASA Grade Assessment: II - A patient with mild systemic disease. After reviewing the risks and benefits, the patient was deemed in satisfactory condition to undergo the procedure. The anesthesia plan was to use moderate sedation / analgesia (conscious sedation). Immediately prior to administration of medications, the patient was re-assessed for adequacy to receive sedatives. The heart rate, respiratory rate, oxygen saturations, blood pressure, adequacy of pulmonary ventilation, and response to care were monitored throughout the procedure. The physical status of the patient was re-assessed after the procedure. The Endoscope was introduced through the mouth, and advanced to the second part of duodenum. The upper GI endoscopy was accomplished without difficulty. The patient tolerated the procedure well. Moderate Sedation: Moderate (conscious) sedation was [Sedation Professional]. [Parameters Monitored]. [Procedure Duration Time]. Findings: No gross lesions were noted in the entire esophagus. Two non-bleeding gastric ulcers with a clean ulcer base (Elijah Class III) were found in the gastric antrum. The largest lesion was 10 mm in largest dimension. Biopsies were taken with a cold forceps for histology. Verification of patient identification for the specimen was done by the physician and nurse using the patient's name, date and medical record number. Estimated blood loss was minimal. Diffuse moderate inflammation characterized by erosions and erythema was found in the gastric antrum. Biopsies were taken with a cold forceps for Helicobacter pylori testing. The duodenal bulb and second portion of the duodenum were normal. Impression: - No gross lesions in esophagus. - Non-bleeding gastric ulcers with a clean ulcer base (Elijah Class III). Biopsied. - Gastritis. Biopsied. - Normal duodenal bulb and second portion of the duodenum. Recommendation: - Return patient to [facility] for ongoing care. - Patient has a contact number available for emergencies. The signs and symptoms of potential delayed complications were discussed with the patient. Return to normal activities tomorrow. Written discharge instructions were provided to the patient. - Full liquid diet today, then advance as tolerated to advance diet as tolerated. - Continue present medications. - Resume Eliquis (apixaban) at prior dose in 2 days. Refer to managing physician for further adjustment of therapy. - Await pathology results. - Return to GI clinic - Patient following Dr. Kyle as outpatient for elective colonoscopy. Oscar Murillo MD Oscar Murillo MD 07/09/2017 2:13:55 PM This report has been signed electronically. Number of Addenda: 0 Note Initiated On: 07/09/2017 1:45 PM Estimated Blood Loss: Estimated blood loss was minimal.
[2017-07-09] MEDS ORDERED: ACETAMINOPHEN TAB 650MG DOSE (2X325MG) PO PRN (20:30)
[2017-07-09] MEDS: FERROUS SULFATE 325MG TAB PO SCH (20:40)
[2017-07-09] MEDS: ATORVASTATIN 20 MG TAB PO SCH (20:40)
[2017-07-09] MEDS: DOCUSATE SODIUM 100 MG CAP PO SCH (20:41)
[2017-07-09] MEDS: PANTOPRAZOLE 40MG TAB (PROTONIX) PO SCH (20:41)
[2017-07-10 00:55] VITALS: BP 110/58
[2017-07-10 05:46] LABS: MEAN CORPUSCULAR HEMOGLOBIN 31.8 pg (27.0-33.0); MEAN CORPUSCULAR HGB CONC 32.9 g/dl (32.0-36.5); MEAN CORPUSCULAR VOLUME 96.9 fl (80.0-96.0); RED CELL DISTRIBUTION WIDTH 14.3 % (11.5-14.5); WHITE BLOOD COUNT 6.8 K/mm3 (4.0-10.0)
[2017-07-10 05:56] LABS: CREATININE FOR GFR 1.62 MG/DL (0.70-1.30); GLOMERULAR FILTRATION RATE 45.2 (>49); POTASSIUM SERUM 4.2 MEQ/L (3.5-5.1)
[2017-07-10 05:59] VITALS: BP 122/80
[2017-07-10 08:00] VITALS: BP 152/71
[2017-07-10] MEDS: SPIRONOLACTONE 12.5MG PER 1/2 TABLET PO SCH (08:19)
[2017-07-10] MEDS: FERROUS SULFATE 325MG TAB PO SCH (08:19)
[2017-07-10] MEDS: PANTOPRAZOLE 40MG TAB (PROTONIX) PO SCH (08:19)
[2017-07-10] MEDS: DOCUSATE SODIUM 100 MG CAP PO SCH (08:19)
[2017-07-10 08:21] VITALS: BP 152/71
[2017-07-10] MEDS: METOPROLOL SUCC (TopROL XL) 50MG **XL** TAB PO SCH (08:21)
[2017-07-10] MEDS: KETOROLAC 0.5% OPHTH SOLN OD SCH (08:21)
[2017-07-10] MEDS: TOBRAMYCIN 0.3% OPHTH SOLN 5 ML OD SCH (08:22)
[2017-07-10] MEDS: prednisoLONE ACET 1% OPHTH SUSP 5ML OD SCH (08:22)
[2017-07-10] MEDS ORDERED: FERR1TAB8 PO (11:11)
[2017-07-10] MEDS ORDERED: PANT40TA2 PO (11:11)
[2017-07-10] MEDS ORDERED: BISACODYL 10 MG SUPP PR ONE (11:15)
--- NOTE | 2017-07-10 11:50 | IPNPDOC ---
Date Seen The patient was seen on 07/09/17. Progress Note Post procedure note; ( the Operative note is also placed in patients CHART). Patient tolerated the EGD well. No post procedure complications. EGD findings: -- NO active bleeding. -- Normal esophagus -- Non bleeding gastric antral ulcers ( jaylan Class III) - biopsied. -- Gastritis -- biopsied for ruling out H. pylori. -- Normal Duodenal buld and second portion. 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 -- Advance diet as tolerated. -- Can resume apixaban ( Eliquis) from tomorrow. -- Follow up pathology results. -- Return to GI clinic -- patient is following with Dr. Kyle as outpatient. please refer to his clinic. -- Needs repeat CBC and iron studies after 3 months and if not improving then needs elective colonoscopy to r/o colonic source of Gi blood loss. -- Recall Gi for any further questions. -- patient to follow up with PMD for routine medical care and pathology results and other age appropriate health maintenance. Plan of care discussed with patient and his family members and Primary team. ( Deena). QUINTIN CASTRO MD Jul 10, 2017 11:50
--- NOTE | 2017-07-10 18:46 | DSES ---
DATE OF ADMISSION: 07/06/2017 DATE OF DISCHARGE: 07/10/2017 PRIMARY CARE PROVIDER: Dr. Naeem Glover at [facility]. ATTENDING PHYSICIAN: Dr. Emre Jeffers HISTORY OF PRESENT ILLNESS: 67-year-old male with past medical history of atrial fibrillation on Eliquis, also cerebral palsy, hypertension, iron deficiency anemia, hyperlipidemia, chronic kidney disease stage III, sent to the emergency room for a hemoglobin noted to be less than 5. Workup in the emergency room proved a positive hemoccult. Patient was admitted with an admitting diagnosis of acute blood loss anemia, likely secondary to upper gastrointestinal (GI) bleed. HOSPITAL COURSE: Patient received a total of 3 units of packed red cells with improvement in his hemoglobin, and patient remained asymptomatic throughout his hospitalization. Patient is status post gastroenterology (GI) consultation on 07/07/[address] Murillo and was scheduled for upper endoscopy. Upper endoscopy completed on 07/09/2017. Operative notes available and reviewed prior to patient discharge. No gross lesions were noted in the entire esophagus. Two non-bleeding gastric ulcers with a clean ulcer base were found in the gastric antrum. Biopsies were taken. Blood loss was minimal. Patient is anxious to return home. Hemoglobin and hematocrit are stable. Electrolytes are stable. Creatinine is returning to baseline at 1.62. Patient does complain of constipation today, and a Dulcolax suppository has been ordered. Patient has remained on Protonix 40 mg by mouth twice a day. ON PHYSICAL EXAM TODAY: VITAL SIGNS: Are stable. He is afebrile. HEENT: Neck is supple without lymphadenopathy or jugular venous distention (JVD). CARDIOVASCULAR: Heart rate and rhythm are regular. PULMONARY: Lungs are clear. ABDOMEN: Soft and nontender with positive bowel sounds times all four quadrants. BILATERAL LOWER EXTREMITIES: Are without edema. ASSESSMENT: Acute blood loss anemia, secondary to gastrointestinal bleed. SECONDARY DIAGNOSES: Include: 1. Cerebral palsy. 2. Hypertension. 3. History of atrial fibrillation. 4. Chronic kidney disease stage III. 5. History of iron deficiency anemia. PLAN: Patient will be discharged back to [facility]. MEDICATIONS: Are as follows: - ferrous sulfate 325 mg by mouth twice a day - pantoprazole sodium 40 mg by mouth twice a day - acetaminophen 325 mg tablets two by mouth nightly - acetaminophen 650 mg suppository per rectum every 4 hours as needed for pain - atorvastatin 40 mg by mouth three times weekly - Dulcolax 10 mg suppository daily as needed constipation - Refresh Tears in both eyes four times a day - chlorthalidone 12.5 mg by mouth daily - Colace with Senna one tablet by mouth daily - enema daily as needed constipation - Anusol HC cream per rectum four times a day as needed hemorrhoids - ketorolac one drop right eye four times a day - losartan potassium 50 mg by mouth nightly - metoprolol succinate 50 mg by mouth daily - milk of magnesia 30 mL by mouth daily as needed constipation - multivitamin one tablet by mouth daily - MiraLAX one packet by mouth daily as needed constipation - prednisolone acetate one drop right eye four times a day - Robitussin Cough and Cold 10 mL by mouth every 4 hours as needed for cough - spironolactone 25 mg tablets take half tablet to equal 12.5 mg by mouth daily - tobramycin sulfate drops one drop right eye four times a day Patient is discharged in stable, satisfactory condition with no further questions at time of discharge. Patient will start his Eliquis and aspirin in the morning, as he had biopsies completed within the last 24 hours. He does need to have a re-evaluation by Dr. Jimmy Kyle for elective colonoscopy as well as followup on the gastric ulcer. 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 Edited: candis 07/10/2017 [id number]
== END 2017-07-10 13:45 | DRG 378 ==
LOC: M ED 18:58 → M ED INP 22:03 → M PCU 07-07 00:49
PROVIDERS: ADMIT Internal Medicine; ATTEND Family Medicine
PROC: 30233N1 Transfusion of Nonautologous Red Blood Cells into Peripheral Vein, Percutaneous Approach (ICD-10-PCS; 2017-07-06)
PROC: 0DB68ZX Excision of Stomach, Via Natural or Artificial Opening Endoscopic, Diagnostic (ICD-10-PCS; principal; 2017-07-09 06:45)
DX: K92.2 Gastrointestinal hemorrhage, unspecified (principal); D62 Acute posthemorrhagic anemia; I13.10 Hypertensive heart and chronic kidney disease without heart failure, with stage 1 through stage 4 chronic kidney disease, or unspecified chronic kidney disease; N18.3 Chronic kidney disease, stage 3 (moderate); K25.9 Gastric ulcer, unspecified as acute or chronic, without hemorrhage or perforation; G80.9 Cerebral palsy, unspecified; K29.70 Gastritis, unspecified, without bleeding; I48.2 Chronic atrial fibrillation; Z79.01 Long term (current) use of anticoagulants; E78.5 Hyperlipidemia, unspecified; Z79.899 Other long term (current) drug therapy; Z79.82 Long term (current) use of aspirin

== ENCOUNTER → 2017-07-06 | Outpatient (REF) | payer MEDICARE, MEDICAID ==
[~2017-07-06] MED LIST changes: +ACEP650S PR; -ACETYLCHOLINE OPHTH SOLN 1% 2ML (MIOCHOL-E) As Ordered ONE; +ACUL0.5S OD; +ANUS2.5C2 PR; +ASPI81CH32 PO; +ATOR40TA75 PO; -BALANCED SALT IRRIGATION SOLUTION 500ML BAG (FOR OR EYE MACHINE) As Ordered ONE; -CEFUROXIME 1MG/0.1ML INTRACAMERAL INJ As Ordered ONE; -CYCLOPENTOLATE 2% OPHTH SOLN 2ML BTL OD ONE; +DULC10SU2 PR; +ENEMENE6 PR; +FERR1TAB8 PO; -HEALON DUET (HEALON 10MG/ML 0.55ML & HEALON ENDOCOAT 30MG/ML 0.85ML) As Ordered ONE; +KETO5OPD OD; -LIDOCAINE 1% SDV 5 ML VIAL As Ordered ONE; -LIDOCAINE 3.5 % 1ML OPHTH TOPICAL GEL OU ONE; +LOSA50TA20 PO; +MILKSUS PO; +MIRA33504 PO; -OFLOXACIN 0.3 % (OCUFLOX) OPTH SOL 5ML OD ONE; +PANT40TA2 PO; -PHENYLEPHRINE 2.5% OPHTH SOL 2ML OD ONE; -POVIDONE-IODINE 5% OPHTH PREP SOL 30ML As Ordered ONE; +PRED1SUS OD; +PREDFORTE OU; +REFR0.5D8 OU; +REFR1DRO8 OU; +REFRESH PM; +REFROIN OP; +ROBILIQ PO; +SENN-23 PO; +SENN8.6C PO; +TOBR0.3S OD; -TROPICAMIDE 1% OPHTH SOLN 2ML OD ONE; +TYLE325T5 PO
[2017-07-06 16:44] LABS: CALCIUM LEVEL 8.4 MG/DL (8.8-10.2); CREATININE FOR GFR 1.72 MG/DL (0.70-1.30); GLOMERULAR FILTRATION RATE 42.2 (>49)
[2017-07-06 16:46] LABS: POTASSIUM SERUM 5.4 MEQ/L (3.5-5.1)
[2017-07-06 17:39] LABS: MEAN CORPUSCULAR HEMOGLOBIN 32.1 pg (27.0-33.0); MEAN CORPUSCULAR HGB CONC 31.1 g/dl (32.0-36.5); MEAN CORPUSCULAR VOLUME 103.2 fl (80.0-96.0); RED CELL DISTRIBUTION WIDTH 16.4 % (11.5-14.5); WHITE BLOOD COUNT 8.8 K/mm3 (4.0-10.0)
== END ==
LOC: SKLAB3 14:10
PROVIDERS: ATTEND Family Medicine
DX: I13.10 Hypertensive heart and chronic kidney disease without heart failure, with stage 1 through stage 4 chronic kidney disease, or unspecified chronic kidney disease (principal); N18.9 Chronic kidney disease, unspecified

== ENCOUNTER → 2017-07-16 | Outpatient (REF) | payer MEDICARE, MEDICAID ==
[~2017-07-16] MED LIST changes: +ACEP650S PR; +ANUS2.5C2 PR; +ASPI81CH32 PO; +ATOR40TA75 PO; +DULC10SU2 PR; +ENEMENE6 PR; +FERR1TAB8 PO; +KETO5OPD OD; +LOSA50TA20 PO; +MILKSUS PO; +MIRA33504 PO; +PANT40TA2 PO; +PRED1SUS OD; +PREDFORTE OU; +REFR0.5D8 OU; +REFRESH PM; +REFROIN OP; +ROBILIQ PO; +SENN-23 PO; +TOBR0.3S OD; +TYLE325T5 PO
[2017-07-16 08:52] LABS: MEAN CORPUSCULAR HEMOGLOBIN 31.1 pg (27.0-33.0); MEAN CORPUSCULAR HGB CONC 32.5 g/dl (32.0-36.5); MEAN CORPUSCULAR VOLUME 95.5 fl (80.0-96.0); RED CELL DISTRIBUTION WIDTH 14.9 % (11.5-14.5); WHITE BLOOD COUNT 6.6 K/mm3 (4.0-10.0)
== END ==
LOC: SKLAB3 12:57
PROVIDERS: ATTEND Family Medicine
DX: D64.9 Anemia, unspecified (principal)

== ENCOUNTER 2017-07-23 12:05 | Outpatient (CLI) | payer MEDICARE, MEDICAID ==
[~2017-07-23 12:05] MED LIST changes: +ACETAMINOPHEN TAB 650MG DOSE (2X325MG) PO SCH; +diphenhydrAMINE 25 MG CAP PO SCH
== END 2017-07-23 17:00 | disposition home or self-care (01) ==
LOC: M INFU 12:05
PROVIDERS: ATTEND Family Medicine
DX: D64.9 Anemia, unspecified (principal); Z96.642 Presence of left artificial hip joint; Z79.82 Long term (current) use of aspirin; Z79.899 Other long term (current) drug therapy

== ENCOUNTER → 2017-07-23 | Outpatient (REF) | payer MEDICARE, MEDICAID ==
[2017-07-23 08:40] LABS: MEAN CORPUSCULAR HEMOGLOBIN 30.3 pg (27.0-33.0); MEAN CORPUSCULAR HGB CONC 30.7 g/dl (32.0-36.5); MEAN CORPUSCULAR VOLUME 98.8 fl (80.0-96.0); RED CELL DISTRIBUTION WIDTH 18.4 % (11.5-14.5); WHITE BLOOD COUNT 9.6 K/mm3 (4.0-10.0)
== END ==
LOC: SKLAB3 07:00
PROVIDERS: ATTEND Family Medicine
DX: D64.9 Anemia, unspecified (principal); Z96.642 Presence of left artificial hip joint; Z79.82 Long term (current) use of aspirin; Z79.899 Other long term (current) drug therapy
CPT/HCPCS: 36415; 36430; 85027; 86850; 86900; 86901; 86920; P9016

== ENCOUNTER → 2017-07-26 | Outpatient (REF) | payer MEDICARE, MEDICAID ==
[~2017-07-26] MED LIST changes: -ACETAMINOPHEN TAB 650MG DOSE (2X325MG) PO SCH; -diphenhydrAMINE 25 MG CAP PO SCH
== END ==
LOC: SKLAB3 09:28
PROVIDERS: ATTEND Family Medicine
DX: D64.9 Anemia, unspecified (principal)

== ENCOUNTER → 2017-08-06 | Outpatient (REF) | payer MEDICARE, MEDICAID | LOC: SKLAB3 08:53 | PROVIDERS: ATTEND Family Medicine | DX: D64.9 Anemia, unspecified (principal) ==

== ENCOUNTER → 2017-08-07 | Outpatient (REF) | payer MEDICARE, MEDICAID ==
[2017-08-07 10:05] LABS: FOLATE > 24.0 NG/ML (>5.4); VITAMIN B12 LEVEL 597 PG/ML (247-911)
== END ==
LOC: SKLAB3 07:00
PROVIDERS: ATTEND Family Medicine
DX: D64.9 Anemia, unspecified (principal)

== ENCOUNTER → 2017-08-13 | Outpatient (REF) | payer MEDICARE, MEDICAID ==
[2017-08-13 08:47] LABS: ALBUMIN 3.4 GM/DL (3.2-5.2); ALBUMIN/GLOBULIN RATIO 0.92 (1.00-1.93); ALKALINE PHOSPHATASE 70 U/L (45-117); ALT/SGPT 22 U/L (12-78); ANION GAP 6 MEQ/L (8-16); AST/SGOT 21 U/L (15-37); BILIRUBIN,DIRECT < 0.1 MG/DL (0.0-0.2); BILIRUBIN,TOTAL 0.3 MG/DL (0.2-1.0); BLOOD UREA NITROGEN 38 MG/DL (7-18); CALCIUM LEVEL 8.3 MG/DL (8.8-10.2); CARBON DIOXIDE LEVEL 26 MEQ/L (21-32); CHLORIDE LEVEL 109 MEQ/L (98-107); CHOLESTEROL LEVEL 93 MG/DL (<200); CREATININE FOR GFR 1.88 MG/DL (0.70-1.30); GLOMERULAR FILTRATION RATE 38.1 (>49); GLUCOSE, FASTING 91 MG/DL (80-110); POTASSIUM SERUM 4.6 MEQ/L (3.5-5.1); SODIUM LEVEL 141 MEQ/L (136-145); TOTAL PROTEIN 7.1 GM/DL (6.4-8.2); TRIGLYCERIDES LEVEL 87 MG/DL (<150)
== END ==
LOC: SKLAB3 07:00
PROVIDERS: ATTEND Family Medicine
DX: D64.9 Anemia, unspecified (principal); I10 Essential (primary) hypertension; E78.5 Hyperlipidemia, unspecified

== ENCOUNTER → 2017-08-20 | Outpatient (REF) | payer MEDICARE, MEDICAID | LOC: SKLAB3 12:51 | PROVIDERS: ATTEND Family Medicine | DX: D64.9 Anemia, unspecified (principal) ==

== ENCOUNTER → 2017-09-10 | Outpatient (REF) | payer MEDICARE, MEDICAID | LOC: SKLAB3 12:41 | PROVIDERS: ATTEND Family Medicine | DX: D64.9 Anemia, unspecified (principal) ==

== ENCOUNTER → 2017-09-17 | Outpatient (REF) | payer MEDICARE, MEDICAID | LOC: SKLAB3 09:01 | PROVIDERS: ATTEND Family Medicine | DX: D64.9 Anemia, unspecified (principal) ==

== ENCOUNTER → 2017-09-24 | Outpatient (REF) | payer MEDICARE, MEDICAID | LOC: SKLAB3 07:00 | PROVIDERS: ATTEND Family Medicine | DX: D64.9 Anemia, unspecified (principal) ==

== ENCOUNTER → 2017-10-01 | Outpatient (REF) | payer MEDICARE, MEDICAID ==
[2017-10-01 09:12] LABS: MEAN CORPUSCULAR HEMOGLOBIN 32.1 pg (27.0-33.0); MEAN CORPUSCULAR HGB CONC 31.7 g/dl (32.0-36.5); MEAN CORPUSCULAR VOLUME 101.4 fl (80.0-96.0); PLATELET COUNT, AUTOMATED 188 10^3/uL (150-450); RED CELL DISTRIBUTION WIDTH 14.5 % (11.5-14.5); WHITE BLOOD COUNT 5.9 10^3/uL (4.0-10.0)
[2017-10-01 09:38] LABS: ALBUMIN 3.7 GM/DL (3.2-5.2); ALBUMIN/GLOBULIN RATIO 0.97 (1.00-1.93); BILIRUBIN,DIRECT 0.1 MG/DL (0.0-0.2); BILIRUBIN,TOTAL 0.4 MG/DL (0.2-1.0); TOTAL PROTEIN 7.5 GM/DL (6.4-8.2)
== END ==
LOC: SKLAB3 07:00
PROVIDERS: ATTEND Family Medicine
DX: E78.5 Hyperlipidemia, unspecified (principal); I50.9 Heart failure, unspecified; R71.0 Precipitous drop in hematocrit

== ENCOUNTER → 2017-10-08 | Outpatient (REF) | payer MEDICARE, MEDICAID ==
[2017-10-08 09:59] LABS: CALCIUM LEVEL 9.2 MG/DL (8.8-10.2); PHOSPHORUS LEVEL 3.6 MG/DL (2.5-4.9)
== END ==
LOC: SKLAB3 09:06
PROVIDERS: ATTEND Family Medicine
DX: D64.9 Anemia, unspecified (principal)

== ENCOUNTER → 2017-10-15 | Outpatient (REF) | payer MEDICARE, MEDICAID | LOC: SKLAB3 10:43 | PROVIDERS: ATTEND Family Medicine | DX: J20.9 Acute bronchitis, unspecified (principal) ==

== ENCOUNTER → 2017-10-18 | Outpatient (REF) ==
[2017-10-18 09:18] LABS: BASO % 0.4 % (0.0-1.0); EOS # 0.3 10^3/uL (0.0-0.50); EOS % 4.3 % (0.0-3.0); IMMATURE GRANULOCYTE % 0.3 % (0-0); LYMPH # 1.8 10^3/uL (1.5-4.5); LYMPH % 22.5 % (24.0-44.0); MEAN CORPUSCULAR HEMOGLOBIN 32.3 pg (27.0-33.0); MEAN CORPUSCULAR HGB CONC 32.9 g/dl (32.0-36.5); MONO # 0.7 10^3/uL (0.0-0.8); MONO % 8.2 % (0.0-5.0); NEUTROPHILS # 5.1 10^3/uL (1.8-7.7); NEUTROPHILS % 64.3 % (36.0-66.0); PLATELET COUNT, AUTOMATED 205 10^3/uL (150-450); RED CELL DISTRIBUTION WIDTH 13.5 % (11.5-14.5); WHITE BLOOD COUNT 7.9 10^3/uL (4.0-10.0)
--- NOTE | 2017-10-18 09:23 | REP ---
CHEST, PORTABLE: AP portable view of the chest is performed and compared to prior study of 07/06/2017 as well as other prior exams. There is cardiomegaly and pulmonary venous hypertension. There is poor ventilation. There are crowded lung markings in the lung bases bilaterally with atelectatic change in the right base. There is tortuosity of the thoracic aorta. The mediastinal silhouette is unchanged. IMPRESSION: Cardiomegaly and venous hypertension. Mild bibasilar atelectatic change. Signed by Raoul Terrell MD 10/18/2017 08:35 P
[2017-10-18 10:02] LABS: CALCIUM LEVEL 8.8 MG/DL (8.8-10.2); CREATININE FOR GFR 1.81 MG/DL (0.70-1.30); GLOMERULAR FILTRATION RATE 39.8 (>49); POTASSIUM SERUM 4.1 MEQ/L (3.5-5.1)
== END ==
LOC: SKLAB3 07:28
PROVIDERS: ATTEND Family Medicine
DX: R09.02 Hypoxemia (principal)

== ENCOUNTER → 2017-11-03 | Outpatient (REF) | payer MEDICARE, MEDICAID ==
[2017-11-03 12:03] LABS: BASO # 0.1 10^3/uL (0.0-0.2); BASO % 0.4 % (0.0-1.0); EOS # 0.1 10^3/uL (0.0-0.50); EOS % 0.5 % (0.0-3.0); HEMATOCRIT 39.6 % (42.0-52.0); HEMOGLOBIN 13.2 g/dl (14.0-18.0); IMMATURE GRANULOCYTE # 0.1 10^3/uL (0-0); IMMATURE GRANULOCYTE % 0.4 % (0-0); LYMPH # 1.5 10^3/uL (1.5-4.5); LYMPH % 10.8 % (24.0-44.0); MEAN CORPUSCULAR HEMOGLOBIN 32.6 pg (27.0-33.0); MEAN CORPUSCULAR HGB CONC 33.3 g/dl (32.0-36.5); MEAN CORPUSCULAR VOLUME 97.8 fl (80.0-96.0); MONO # 1.6 10^3/uL (0.0-0.8); MONO % 11.6 % (0.0-5.0); NEUTROPHILS # 10.3 10^3/uL (1.8-7.7); NEUTROPHILS % 76.3 % (36.0-66.0); PLATELET COUNT, AUTOMATED 189 10^3/uL (150-450); RED BLOOD COUNT 4.05 10^6/uL (4.30-6.10); RED CELL DISTRIBUTION WIDTH 13.4 % (11.5-14.5); WHITE BLOOD COUNT 13.4 10^3/uL (4.0-10.0)
[2017-11-03 12:25] LABS: ANION GAP 6 MEQ/L (8-16); BLOOD UREA NITROGEN 36 MG/DL (7-18); CALCIUM LEVEL 8.8 MG/DL (8.8-10.2); CARBON DIOXIDE LEVEL 29 MEQ/L (21-32); CHLORIDE LEVEL 108 MEQ/L (98-107); CREATININE FOR GFR 1.96 MG/DL (0.70-1.30); GLOMERULAR FILTRATION RATE 36.3 (>49); GLUCOSE, FASTING 109 MG/DL (80-110); POTASSIUM SERUM 4.5 MEQ/L (3.5-5.1); SODIUM LEVEL 143 MEQ/L (136-145)
== END ==
LOC: SKLAB3 10:30
DX: J98.11 Atelectasis (principal); R06.2 Wheezing; R05 Cough; I10 Essential (primary) hypertension
CPT/HCPCS: 71045

== ENCOUNTER → 2017-11-07 | Outpatient (REF) | payer MEDICARE, MEDICAID | LOC: SKLAB3 15:17 | DX: R19.7 Diarrhea, unspecified (principal) | CPT/HCPCS: 36415 ==

== ENCOUNTER → 2017-11-12 | Outpatient (REF) | payer MEDICARE, MEDICAID ==
[2017-11-12 11:12] LABS: THYROXINE (T4) 8.7 UG/DL (4.5-12.0)
[2017-11-12 11:33] LABS: ESTIMATED AVERAGE GLUCOSE 126 MG/DL (60-110)
== END ==
LOC: SKLAB3 13:02
DX: D64.9 Anemia, unspecified (principal); E11.9 Type 2 diabetes mellitus without complications
CPT/HCPCS: 84443

== ENCOUNTER → 2017-11-15 | Outpatient (REF) | payer MEDICARE, MEDICAID ==
[2017-11-15 10:21] LABS: ANION GAP 5 MEQ/L (8-16); BLOOD UREA NITROGEN 27 MG/DL (7-18); CALCIUM LEVEL 8.9 MG/DL (8.8-10.2); CARBON DIOXIDE LEVEL 32 MEQ/L (21-32); CHLORIDE LEVEL 105 MEQ/L (98-107); CREATININE FOR GFR 1.76 MG/DL (0.70-1.30); GLOMERULAR FILTRATION RATE 41.1 (>49); GLUCOSE, FASTING 77 MG/DL (80-110); POTASSIUM SERUM 4.4 MEQ/L (3.5-5.1); SODIUM LEVEL 142 MEQ/L (136-145)
== END ==
LOC: SKLAB3 07:00
DX: I25.10 Atherosclerotic heart disease of native coronary artery without angina pectoris (principal)
CPT/HCPCS: 36415

== ENCOUNTER → 2017-12-17 | Outpatient (REF) | payer MEDICARE, MEDICAID ==
[2017-12-17 09:08] LABS: ALT/SGPT 27 U/L (12-78); ANION GAP 8 MEQ/L (8-16); AST/SGOT 24 U/L (7-37); BLOOD UREA NITROGEN 38 MG/DL (7-18); CALCIUM LEVEL 8.9 MG/DL (8.8-10.2); CARBON DIOXIDE LEVEL 29 MEQ/L (21-32); CHLORIDE LEVEL 106 MEQ/L (98-107); CREATININE FOR GFR 1.85 MG/DL (0.70-1.30); GLOMERULAR FILTRATION RATE 38.8 (>49); GLUCOSE, FASTING 94 MG/DL (70-100); POTASSIUM SERUM 4.4 MEQ/L (3.5-5.1); SODIUM LEVEL 143 MEQ/L (136-145)
[2017-12-17 09:09] LABS: ALBUMIN 3.7 GM/DL (3.2-5.2); ALKALINE PHOSPHATASE 80 U/L (45-117); BILIRUBIN,TOTAL 0.7 MG/DL (0.2-1.0); TOTAL PROTEIN 7.8 GM/DL (6.4-8.2)
[2017-12-17 09:46] LABS: BASO % 0.6 % (0.0-1.0); EOS # 0.4 10^3/uL (0.0-0.50); EOS % 6.6 % (0.0-3.0); HEMATOCRIT 39.2 % (42.0-52.0); IMMATURE GRANULOCYTE % 0.5 % (0-3.0); LYMPH # 1.6 10^3/uL (1.5-4.5); LYMPH % 24.6 % (24.0-44.0); MEAN CORPUSCULAR HEMOGLOBIN 31.9 pg (27.0-33.0); MEAN CORPUSCULAR HGB CONC 33.2 g/dl (32.0-36.5); MEAN CORPUSCULAR VOLUME 96.3 fl (80.0-96.0); MONO # 0.7 10^3/uL (0.0-0.8); MONO % 11.4 % (0.0-5.0); NEUTROPHILS # 3.6 10^3/uL (1.8-7.7); NEUTROPHILS % 56.3 % (36.0-66.0); RED BLOOD COUNT 4.07 10^6/uL (4.30-6.10); RED CELL DISTRIBUTION WIDTH 13.2 % (11.5-14.5); WHITE BLOOD COUNT 6.4 10^3/uL (4.0-10.0)
[2017-12-17 09:47] LABS: POS COUNT POS FLAG
[2017-12-17 09:58] LABS: ADD MORPHOLOGY? YES
[2017-12-17 09:59] LABS: PLATELET CLUMPS MODERATE AMT; PLATELET ESTIMATE NORMAL (NORMAL)
[2017-12-17 10:00] LABS: ANISOCYTOSIS 1+; POIKILOCYTOSIS 1+
== END ==
LOC: SKLAB3 12:45
DX: I48.91 Unspecified atrial fibrillation (principal); D64.9 Anemia, unspecified
CPT/HCPCS: 80053

== ENCOUNTER → 2018-01-07 | Outpatient (REF) | payer MEDICARE, MEDICAID ==
[2018-01-07 08:21] LABS: BASO # 0.1 10^3/uL (0.0-0.2); EOS # 0.5 10^3/uL (0.0-0.50); EOS % 8.1 % (0.0-3.0); HEMOGLOBIN 12.4 g/dl (14.0-18.0); IMMATURE GRANULOCYTE % 0.2 % (0-3.0); LYMPH # 1.4 10^3/uL (1.5-4.5); LYMPH % 23.7 % (24.0-44.0); MEAN CORPUSCULAR HEMOGLOBIN 32.1 pg (27.0-33.0); MEAN CORPUSCULAR HGB CONC 33.5 g/dl (32.0-36.5); MEAN CORPUSCULAR VOLUME 95.9 fl (80.0-96.0); MONO # 0.7 10^3/uL (0.0-0.8); MONO % 12.5 % (0.0-5.0); NEUTROPHILS # 3.2 10^3/uL (1.8-7.7); NEUTROPHILS % 54.5 % (36.0-66.0); RED BLOOD COUNT 3.86 10^6/uL (4.30-6.10); RED CELL DISTRIBUTION WIDTH 13.4 % (11.5-14.5); WHITE BLOOD COUNT 5.9 10^3/uL (4.0-10.0)
[2018-01-07 08:43] LABS: ADD MORPHOLOGY? YES; POS COUNT POS FLAG
[2018-01-07 08:44] LABS: ANISOCYTOSIS 1+; PLATELET CLUMPS MODERATE AMT; PLATELET ESTIMATE NORMAL (NORMAL); POIKILOCYTOSIS 1+
== END ==
LOC: SKLAB3 12:49
DX: D64.9 Anemia, unspecified (principal)
CPT/HCPCS: 36415

== ENCOUNTER → 2018-02-11 | Outpatient (REF) | payer MEDICARE, MEDICAID ==
[2018-02-11 08:02] LABS: BASO # 0.1 10^3/uL (0.0-0.2); BASO % 0.9 % (0.0-1.0); EOS # 0.7 10^3/uL (0.0-0.50); EOS % 11.5 % (0.0-3.0); HEMATOCRIT 38.9 % (42.0-52.0); IMMATURE GRANULOCYTE % 0.2 % (0-3.0); LYMPH # 1.8 10^3/uL (1.5-4.5); LYMPH % 27.6 % (24.0-44.0); MEAN CORPUSCULAR HEMOGLOBIN 32.5 pg (27.0-33.0); MEAN CORPUSCULAR HGB CONC 33.4 g/dl (32.0-36.5); MEAN CORPUSCULAR VOLUME 97.3 fl (80.0-96.0); MONO # 0.8 10^3/uL (0.0-0.8); NEUTROPHILS # 3.1 10^3/uL (1.8-7.7); NEUTROPHILS % 47.8 % (36.0-66.0); PLATELET COUNT, AUTOMATED 134 10^3/uL (150-450); RED CELL DISTRIBUTION WIDTH 13.8 % (11.5-14.5); WHITE BLOOD COUNT 6.4 10^3/uL (4.0-10.0)
== END ==
LOC: SKLAB3 07:00
DX: D64.9 Anemia, unspecified (principal)
CPT/HCPCS: 36415

== ENCOUNTER → 2018-02-26 | Outpatient (REF) | payer MEDICARE, MEDICAID ==
[2018-02-26 14:07] LABS: BASO % 0.5 % (0.0-1.0); EOS # 0.7 10^3/uL (0.0-0.50); EOS % 9.1 % (0.0-3.0); HEMATOCRIT 38.1 % (42.0-52.0); HEMOGLOBIN 12.5 g/dl (13.5-17.5); IMMATURE GRANULOCYTE % 0.4 % (0-3.0); LYMPH # 1.7 10^3/uL (1.5-4.5); LYMPH % 21.3 % (24.0-44.0); MEAN CORPUSCULAR HEMOGLOBIN 32.5 pg (27.0-33.0); MEAN CORPUSCULAR HGB CONC 32.8 g/dl (32.0-36.5); MONO # 0.9 10^3/uL (0.0-0.8); MONO % 11.2 % (0.0-5.0); NEUTROPHILS # 4.7 10^3/uL (1.8-7.7); NEUTROPHILS % 57.5 % (36.0-66.0); PLATELET COUNT, AUTOMATED 171 10^3/uL (150-450); RED BLOOD COUNT 3.85 10^6/uL (4.30-6.10); RED CELL DISTRIBUTION WIDTH 13.9 % (11.5-14.5); WHITE BLOOD COUNT 8.1 10^3/uL (4.0-10.0)
[2018-02-26 14:40] LABS: ALBUMIN 3.4 GM/DL (3.2-5.2); ALBUMIN/GLOBULIN RATIO 0.81 (1.00-1.93); ALKALINE PHOSPHATASE 94 U/L (45-117); ALT/SGPT 40 U/L (12-78); ANION GAP 7 MEQ/L (8-16); AST/SGOT 35 U/L (7-37); BILIRUBIN,TOTAL 0.7 MG/DL (0.2-1.0); BLOOD UREA NITROGEN 40 MG/DL (7-18); CALCIUM LEVEL 8.6 MG/DL (8.8-10.2); CARBON DIOXIDE LEVEL 27 MEQ/L (21-32); CHLORIDE LEVEL 111 MEQ/L (98-107); GLOMERULAR FILTRATION RATE 33.5 (>49); GLUCOSE, FASTING 94 MG/DL (70-100); POTASSIUM SERUM 4.2 MEQ/L (3.5-5.1); SODIUM LEVEL 145 MEQ/L (136-145); TOTAL PROTEIN 7.6 GM/DL (6.4-8.2)
== END ==
LOC: SKLAB3 12:56
DX: R10.9 Unspecified abdominal pain (principal)
CPT/HCPCS: 80053

== ENCOUNTER → 2018-04-15 | Outpatient (REF) | payer MEDICARE, MEDICAID ==
[2018-04-15 09:36] LABS: BASO # 0.1 10^3/uL (0.0-0.2); BASO % 0.8 % (0.0-1.0); EOS # 0.6 10^3/uL (0.0-0.50); EOS % 9.3 % (0.0-3.0); HEMATOCRIT 36.9 % (42.0-52.0); HEMOGLOBIN 12.3 g/dl (13.5-17.5); IMMATURE GRANULOCYTE % 0.2 % (0-3.0); LYMPH # 1.5 10^3/uL (1.5-4.5); LYMPH % 23.3 % (24.0-44.0); MEAN CORPUSCULAR HEMOGLOBIN 32.3 pg (27.0-33.0); MEAN CORPUSCULAR HGB CONC 33.3 g/dl (32.0-36.5); MEAN CORPUSCULAR VOLUME 96.9 fl (80.0-96.0); MONO # 0.8 10^3/uL (0.0-0.8); MONO % 12.6 % (0.0-5.0); NEUTROPHILS # 3.3 10^3/uL (1.8-7.7); NEUTROPHILS % 53.8 % (36.0-66.0); PLATELET COUNT, AUTOMATED 137 10^3/uL (150-450); RED BLOOD COUNT 3.81 10^6/uL (4.30-6.10); RED CELL DISTRIBUTION WIDTH 13.1 % (11.5-14.5); WHITE BLOOD COUNT 6.2 10^3/uL (4.0-10.0)
[2018-04-15 10:22] LABS: CHOLESTEROL LEVEL 102 MG/DL (<200); CHOLESTEROL RISK RATIO 2.684 (<5); HDL CHOLESTEROL 38 MG/DL (>40); LDL CHOLESTEROL 44.6 MG/DL (<100); NON-HDL-C 64 MG/DL; TRIGLYCERIDES LEVEL 97 MG/DL (<150)
== END ==
LOC: SKLAB3 12:39
DX: D64.9 Anemia, unspecified (principal); E78.5 Hyperlipidemia, unspecified; I10 Essential (primary) hypertension
CPT/HCPCS: 80061

== ENCOUNTER → 2018-04-22 | Outpatient (REF) | payer MEDICARE, MEDICAID ==
[2018-04-22 09:01] LABS: ANION GAP 10 MEQ/L (8-16); BLOOD UREA NITROGEN 37 MG/DL (7-18); CALCIUM LEVEL 8.6 MG/DL (8.8-10.2); CARBON DIOXIDE LEVEL 25 MEQ/L (21-32); CHLORIDE LEVEL 111 MEQ/L (98-107); CREATININE FOR GFR 2.11 MG/DL (0.70-1.30); GLOMERULAR FILTRATION RATE 33.3 (>49); GLUCOSE, FASTING 86 MG/DL (70-100); POTASSIUM SERUM 4.9 MEQ/L (3.5-5.1); SODIUM LEVEL 146 MEQ/L (136-145)
== END ==
LOC: SKLAB3 08:00
DX: I10 Essential (primary) hypertension (principal)
CPT/HCPCS: 36415

== ENCOUNTER → 2018-05-13 | Outpatient (REF) | payer MEDICARE, MEDICAID ==
[2018-05-13 09:34] LABS: BASO % 0.7 % (0.0-1.0); EOS # 0.4 10^3/uL (0.0-0.50); HEMATOCRIT 37.6 % (42.0-52.0); HEMOGLOBIN 12.5 g/dl (13.5-17.5); IMMATURE GRANULOCYTE % 0.2 % (0-3.0); LYMPH # 1.4 10^3/uL (1.5-4.5); LYMPH % 25.5 % (24.0-44.0); MEAN CORPUSCULAR HEMOGLOBIN 32.3 pg (27.0-33.0); MEAN CORPUSCULAR HGB CONC 33.2 g/dl (32.0-36.5); MEAN CORPUSCULAR VOLUME 97.2 fl (80.0-96.0); MONO # 0.6 10^3/uL (0.0-0.8); MONO % 11.2 % (0.0-5.0); NEUTROPHILS % 54.4 % (36.0-66.0); PLATELET COUNT, AUTOMATED 137 10^3/uL (150-450); RED BLOOD COUNT 3.87 10^6/uL (4.30-6.10); WHITE BLOOD COUNT 5.5 10^3/uL (4.0-10.0)
== END ==
LOC: SKLAB3 08:00
DX: D64.9 Anemia, unspecified (principal)
CPT/HCPCS: 85025

== ENCOUNTER → 2018-07-15 | Outpatient (REF) | payer MEDICARE, MEDICAID ==
[2018-07-15 10:38] LABS: HEMATOCRIT 37.9 % (42.0-52.0); HEMOGLOBIN 12.4 g/dl (13.5-17.5); MEAN CORPUSCULAR HEMOGLOBIN 32.5 pg (27.0-33.0); MEAN CORPUSCULAR HGB CONC 32.7 g/dl (32.0-36.5); MEAN CORPUSCULAR VOLUME 99.2 fl (80.0-96.0); PLATELET COUNT, AUTOMATED 141 10^3/uL (150-450); RED BLOOD COUNT 3.82 10^6/uL (4.30-6.10); RED CELL DISTRIBUTION WIDTH 13.2 % (11.5-14.5); WHITE BLOOD COUNT 5.8 10^3/uL (4.0-10.0)
[2018-07-15 11:13] LABS: ALBUMIN 3.7 GM/DL (3.2-5.2); ALBUMIN/GLOBULIN RATIO 0.88 (1.00-1.93); ALKALINE PHOSPHATASE 86 U/L (45-117); ALT/SGPT 26 U/L (12-78); ANION GAP 9 MEQ/L (8-16); AST/SGOT 24 U/L (7-37); BILIRUBIN,TOTAL 0.7 MG/DL (0.2-1.0); BLOOD UREA NITROGEN 47 MG/DL (7-18); CALCIUM LEVEL 8.8 MG/DL (8.8-10.2); CARBON DIOXIDE LEVEL 25 MEQ/L (21-32); CHLORIDE LEVEL 111 MEQ/L (98-107); GLOMERULAR FILTRATION RATE 31.7 (>42); GLUCOSE, FASTING 101 MG/DL (70-100); POTASSIUM SERUM 5.3 MEQ/L (3.5-5.1); SODIUM LEVEL 145 MEQ/L (136-145); TOTAL PROTEIN 7.9 GM/DL (6.4-8.2)
== END ==
LOC: SKLAB3 08:00
DX: D64.9 Anemia, unspecified (principal); I10 Essential (primary) hypertension
CPT/HCPCS: 80053

== ENCOUNTER → 2018-07-17 | Outpatient (REF) | payer MEDICARE, MEDICAID ==
[2018-07-17 15:09] LABS: ANION GAP 8 MEQ/L (8-16); BLOOD UREA NITROGEN 48 MG/DL (7-18); CARBON DIOXIDE LEVEL 25 MEQ/L (21-32); CHLORIDE LEVEL 111 MEQ/L (98-107); CREATININE FOR GFR 2.13 MG/DL (0.70-1.30); GLOMERULAR FILTRATION RATE 32.9 (>42); GLUCOSE, FASTING 107 MG/DL (70-100); POTASSIUM SERUM 5.4 MEQ/L (3.5-5.1); SODIUM LEVEL 144 MEQ/L (136-145)
== END ==
LOC: SKLAB3 14:04
DX: E87.6 Hypokalemia (principal)
CPT/HCPCS: 36415

== ENCOUNTER → 2018-07-19 | Outpatient (REF) | payer MEDICARE, MEDICAID ==
[2018-07-19 16:19] LABS: ANION GAP 7 MEQ/L (8-16); BLOOD UREA NITROGEN 43 MG/DL (7-18); CALCIUM LEVEL 8.9 MG/DL (8.8-10.2); CARBON DIOXIDE LEVEL 26 MEQ/L (21-32); CHLORIDE LEVEL 110 MEQ/L (98-107); CREATININE FOR GFR 2.03 MG/DL (0.70-1.30); GLOMERULAR FILTRATION RATE 34.7 (>42); GLUCOSE, FASTING 90 MG/DL (70-100); POTASSIUM SERUM 5.5 MEQ/L (3.5-5.1); SODIUM LEVEL 143 MEQ/L (136-145)
== END ==
LOC: SKLAB3 12:09
DX: E87.5 Hyperkalemia (principal)
CPT/HCPCS: 80048

== ENCOUNTER → 2018-07-20 | Outpatient (CLI) | payer MEDICARE, MEDICAID ==
[2018-07-20 07:35] LABS: ANION GAP 8 MEQ/L (8-16); BLOOD UREA NITROGEN 44 MG/DL (7-18); CALCIUM LEVEL 8.7 MG/DL (8.8-10.2); CARBON DIOXIDE LEVEL 24 MEQ/L (21-32); CHLORIDE LEVEL 112 MEQ/L (98-107); CREATININE FOR GFR 2.31 MG/DL (0.70-1.30); GLOMERULAR FILTRATION RATE 29.9 (>42); GLUCOSE, FASTING 86 MG/DL (70-100); SODIUM LEVEL 144 MEQ/L (136-145)
== END ==
LOC: M LAB 03:32
DX: E83.52 Hypercalcemia (principal)
CPT/HCPCS: 36415

== ENCOUNTER → 2018-07-24 | Outpatient (REF) | payer MEDICARE, MEDICAID ==
[2018-07-24 07:46] LABS: ANION GAP 7 MEQ/L (8-16); BLOOD UREA NITROGEN 53 MG/DL (7-18); CALCIUM LEVEL 9.2 MG/DL (8.8-10.2); CARBON DIOXIDE LEVEL 25 MEQ/L (21-32); CHLORIDE LEVEL 114 MEQ/L (98-107); CREATININE FOR GFR 2.26 MG/DL (0.70-1.30); GLOMERULAR FILTRATION RATE 30.7 (>42); GLUCOSE, FASTING 88 MG/DL (70-100); SODIUM LEVEL 146 MEQ/L (136-145)
== END ==
LOC: SKLAB3 08:00
DX: N18.9 Chronic kidney disease, unspecified (principal)
CPT/HCPCS: 36415

== ENCOUNTER → 2018-07-26 | Outpatient (REF) | payer MEDICARE, MEDICAID ==
[2018-07-26 13:16] LABS: ANION GAP 9 MEQ/L (8-16); BLOOD UREA NITROGEN 44 MG/DL (7-18); CALCIUM LEVEL 9.3 MG/DL (8.8-10.2); CARBON DIOXIDE LEVEL 26 MEQ/L (21-32); CHLORIDE LEVEL 110 MEQ/L (98-107); CREATININE FOR GFR 1.76 MG/DL (0.70-1.30); GLUCOSE, FASTING 83 MG/DL (70-100); POTASSIUM SERUM 4.8 MEQ/L (3.5-5.1); SODIUM LEVEL 145 MEQ/L (136-145)
== END ==
LOC: SKLAB3 10:27
DX: N18.9 Chronic kidney disease, unspecified (principal)
CPT/HCPCS: 80048

== ENCOUNTER → 2018-08-12 | Outpatient (REF) | payer MEDICARE, MEDICAID ==
[2018-08-12 09:18] LABS: BASO # 0.1 10^3/uL (0.0-0.2); BASO % 0.9 % (0.0-1.0); EOS # 0.6 10^3/uL (0.0-0.50); EOS % 10.1 % (0.0-3.0); HEMATOCRIT 37.1 % (42.0-52.0); HEMOGLOBIN 12.1 g/dl (13.5-17.5); IMMATURE GRANULOCYTE % 0.4 % (0-3.0); LYMPH # 1.6 10^3/uL (1.5-4.5); LYMPH % 28.2 % (24.0-44.0); MEAN CORPUSCULAR HEMOGLOBIN 32.5 pg (27.0-33.0); MEAN CORPUSCULAR HGB CONC 32.6 g/dl (32.0-36.5); MEAN CORPUSCULAR VOLUME 99.7 fl (80.0-96.0); MONO # 0.8 10^3/uL (0.0-0.8); MONO % 14.2 % (0.0-5.0); NEUTROPHILS # 2.6 10^3/uL (1.8-7.7); NEUTROPHILS % 46.2 % (36.0-66.0); PLATELET COUNT, AUTOMATED 155 10^3/uL (150-450); RED BLOOD COUNT 3.72 10^6/uL (4.30-6.10); RED CELL DISTRIBUTION WIDTH 13.3 % (11.5-14.5); WHITE BLOOD COUNT 5.6 10^3/uL (4.0-10.0)
== END ==
LOC: SKLAB3 07:00
DX: D64.9 Anemia, unspecified (principal)
CPT/HCPCS: 85025

== ENCOUNTER → 2018-09-16 | Outpatient (REF) | payer MEDICARE, MEDICAID ==
[2018-09-16 08:15] LABS: BASO # 0.1 10^3/uL (0.0-0.2); BASO % 0.8 % (0.0-1.0); EOS # 0.5 10^3/uL (0.0-0.50); EOS % 8.4 % (0.0-3.0); HEMOGLOBIN 13.5 g/dl (13.5-17.5); IMMATURE GRANULOCYTE % 0.3 % (0-3.0); LYMPH # 1.6 10^3/uL (1.5-4.5); LYMPH % 25.3 % (24.0-44.0); MEAN CORPUSCULAR HGB CONC 32.9 g/dl (32.0-36.5); MEAN CORPUSCULAR VOLUME 97.2 fl (80.0-96.0); MONO # 0.8 10^3/uL (0.0-0.8); MONO % 12.1 % (0.0-5.0); NEUTROPHILS # 3.4 10^3/uL (1.8-7.7); NEUTROPHILS % 53.1 % (36.0-66.0); PLATELET COUNT, AUTOMATED 161 10^3/uL (150-450); RED BLOOD COUNT 4.22 10^6/uL (4.30-6.10); WHITE BLOOD COUNT 6.5 10^3/uL (4.0-10.0)
[2018-09-16 08:50] LABS: ALBUMIN 3.5 GM/DL (3.2-5.2); ALKALINE PHOSPHATASE 91 U/L (45-117); ALT/SGPT 26 U/L (12-78); ANION GAP 9 MEQ/L (8-16); AST/SGOT 26 U/L (7-37); BILIRUBIN,TOTAL 0.7 MG/DL (0.2-1.0); BLOOD UREA NITROGEN 35 MG/DL (7-18); CARBON DIOXIDE LEVEL 25 MEQ/L (21-32); CHLORIDE LEVEL 111 MEQ/L (98-107); CREATININE FOR GFR 1.77 MG/DL (0.70-1.30); GLOMERULAR FILTRATION RATE 40.7 (>42); GLUCOSE, FASTING 101 MG/DL (70-100); POTASSIUM SERUM 4.3 MEQ/L (3.5-5.1); SODIUM LEVEL 145 MEQ/L (136-145); TOTAL PROTEIN 7.4 GM/DL (6.4-8.2)
== END ==
LOC: SKLAB3 07:00
DX: D64.9 Anemia, unspecified (principal); I10 Essential (primary) hypertension
CPT/HCPCS: 80053

== ENCOUNTER → 2018-10-14 | Outpatient (REF) | payer MEDICARE, MEDICAID ==
[2018-10-14 08:35] LABS: BASO # 0.1 10^3/uL (0.0-0.2); BASO % 0.9 % (0.0-1.0); EOS # 0.7 10^3/uL (0.0-0.50); EOS % 11.1 % (0.0-3.0); HEMATOCRIT 40.9 % (42.0-52.0); HEMOGLOBIN 13.1 g/dl (13.5-17.5); IMMATURE GRANULOCYTE % 0.2 % (0-3.0); LYMPH # 1.6 10^3/uL (1.5-4.5); LYMPH % 24.8 % (24.0-44.0); MEAN CORPUSCULAR VOLUME 99.8 fl (80.0-96.0); MONO # 1.2 10^3/uL (0.0-0.8); MONO % 17.7 % (0.0-5.0); NEUTROPHILS % 45.3 % (36.0-66.0); PLATELET COUNT, AUTOMATED 129 10^3/uL (150-450); RED CELL DISTRIBUTION WIDTH 13.3 % (11.5-14.5); WHITE BLOOD COUNT 6.5 10^3/uL (4.0-10.0)
[2018-10-14 09:05] LABS: CHOLESTEROL LEVEL 109 MG/DL (<200); CHOLESTEROL RISK RATIO 2.534 (<5); HDL CHOLESTEROL 43 MG/DL (>40); LDL CHOLESTEROL 49 MG/DL (<100); NON-HDL-C 66 MG/DL; TRIGLYCERIDES LEVEL 83 MG/DL (<150)
== END ==
LOC: SKLAB3 12:42
DX: D64.9 Anemia, unspecified (principal); E78.5 Hyperlipidemia, unspecified
CPT/HCPCS: 80061

== ENCOUNTER → 2018-11-18 | Outpatient (REF) | payer MEDICARE, MEDICAID ==
[~2018-11-18] MED LIST changes: -LOSA100T36 PO; +LOSA100T50 PO; -LOSA50TA20 PO; +LOSA50TA88 PO; +MILK120011 PO; -MILKSUS PO; -PANT40TA2 PO; +PANT40TA3 PO; -PRED1SUS OD; +PRED1SUS2 OD
[2018-11-18 07:42] LABS: BASO # 0.1 10^3/uL (0.0-0.2); BASO % 1.2 % (0.0-1.0); EOS # 0.6 10^3/uL (0.0-0.50); EOS % 8.6 % (0.0-3.0); HEMOGLOBIN 13.6 g/dl (13.5-17.5); LYMPH # 1.9 10^3/uL (1.5-4.5); LYMPH % 28.8 % (24.0-44.0); MEAN CORPUSCULAR HEMOGLOBIN 32.1 pg (27.0-33.0); MEAN CORPUSCULAR HGB CONC 33.2 g/dl (32.0-36.5); MEAN CORPUSCULAR VOLUME 96.7 fl (80.0-96.0); MONO # 0.9 10^3/uL (0.0-0.8); MONO % 13.5 % (0.0-5.0); NEUTROPHILS # 3.1 10^3/uL (1.8-7.7); NEUTROPHILS % 47.6 % (36.0-66.0); PLATELET COUNT, AUTOMATED 166 10^3/uL (150-450); RED BLOOD COUNT 4.24 10^6/uL (4.30-6.10); WHITE BLOOD COUNT 6.5 10^3/uL (4.0-10.0)
== END ==
LOC: SKLAB3 13:44
PROVIDERS: ATTEND Family Medicine
DX: D64.9 Anemia, unspecified (principal); Z79.899 Other long term (current) drug therapy

== ENCOUNTER → 2018-12-16 | Outpatient (REF) | payer MEDICARE, MEDICAID ==
[2018-12-16 09:03] LABS: HEMATOCRIT 40.4 % (42.0-52.0); HEMOGLOBIN 13.5 g/dl (13.5-17.5); MEAN CORPUSCULAR HEMOGLOBIN 32.4 pg (27.0-33.0); MEAN CORPUSCULAR HGB CONC 33.4 g/dl (32.0-36.5); MEAN CORPUSCULAR VOLUME 96.9 fl (80.0-96.0); PLATELET COUNT, AUTOMATED 141 10^3/uL (150-450); RED BLOOD COUNT 4.17 10^6/uL (4.30-6.10); WHITE BLOOD COUNT 5.9 10^3/uL (4.0-10.0)
[2018-12-16 09:20] LABS: CALCIUM LEVEL 8.9 MG/DL (8.8-10.2); CREATININE FOR GFR 1.67 MG/DL (0.70-1.30); GLOMERULAR FILTRATION RATE 43.5 (>42); POTASSIUM SERUM 4.1 MEQ/L (3.5-5.1)
== END ==
LOC: SKLAB3 12:43
PROVIDERS: ATTEND Family Medicine
DX: D64.9 Anemia, unspecified (principal); I10 Essential (primary) hypertension

== ENCOUNTER → 2019-02-22 | Outpatient (CLI) | payer MEDICARE, MEDICAID ==
[~2019-02-22] MED LIST changes: -ASPI81CH32 PO; +ASPI81CH33 PO; +KETO0.5S2 OD; -KETO5OPD OD
--- NOTE | 2019-02-22 09:09 | REP ---
RIGHT SHOULDER, THREE VIEWS: HISTORY: Fall. There is a nondisplaced fracture of the head of the humerus. There is no dislocation. There is mild narrowing of the joint spaces. The bony structure is osteopenic. IMPRESSION: Nondisplaced fracture of the head of the humerus. Electronically Signed by Jaron Mesa MD 02/22/2019 09:19 A
--- NOTE | 2019-02-22 09:10 | REP ---
RIGHT HUMERUS, TWO VIEWS: HISTORY: Fall. There is a nondisplaced fracture of the head of the humerus. There is no dislocation. There is mild narrowing of the shoulder joint spaces. The bony structure is osteopenic. IMPRESSION: Nondisplaced fracture of the head of the humerus. Electronically Signed by Jaron Mesa MD 02/22/2019 09:19 A
== END ==
LOC: M RAD 07:43
PROVIDERS: ATTEND Family Medicine
DX: S42.254A Nondisplaced fracture of greater tuberosity of right humerus, initial encounter for closed fracture (principal); Y99.9 Unspecified external cause status; Y93.9 Activity, unspecified; Y92.9 Unspecified place or not applicable; X58.XXXA Exposure to other specified factors, initial encounter; M85.821 Other specified disorders of bone density and structure, right upper arm; M85.811 Other specified disorders of bone density and structure, right shoulder

== ENCOUNTER → 2019-03-17 | Outpatient (REF) | payer MEDICARE, MEDICAID ==
[2019-03-17 08:10] LABS: HEMATOCRIT 39.6 % (42.0-52.0); HEMOGLOBIN 13.1 g/dl (13.5-17.5); MEAN CORPUSCULAR HEMOGLOBIN 33.1 pg (27.0-33.0); MEAN CORPUSCULAR HGB CONC 33.1 g/dl (32.0-36.5); PLATELET COUNT, AUTOMATED 149 10^3/uL (150-450); RED BLOOD COUNT 3.96 10^6/uL (4.30-6.10); WHITE BLOOD COUNT 6.4 10^3/uL (4.0-10.0)
[2019-03-17 08:43] LABS: ALBUMIN 3.3 GM/DL (3.2-5.2); BILIRUBIN,DIRECT 0.3 MG/DL (0.0-0.2); BILIRUBIN,TOTAL 0.9 MG/DL (0.2-1.0); CALCIUM LEVEL 9.1 MG/DL (8.8-10.2); CREATININE FOR GFR 1.58 MG/DL (0.70-1.30); GLOMERULAR FILTRATION RATE 46.4 (>42)
== END ==
LOC: SKLAB3 07:00
PROVIDERS: ATTEND Family Medicine
DX: D64.9 Anemia, unspecified (principal); I10 Essential (primary) hypertension

== ENCOUNTER → 2019-04-14 | Outpatient (REF) | payer MEDICARE, MEDICAID ==
[2019-04-14 08:45] LABS: CHOLESTEROL RISK RATIO 2.489 (<5)
== END ==
LOC: SKLAB3 07:00
PROVIDERS: ATTEND Family Medicine
DX: E78.5 Hyperlipidemia, unspecified (principal)

== ENCOUNTER → 2019-06-23 | Outpatient (REF) | payer MEDICARE, MEDICAID ==
[2019-06-23 08:03] LABS: HEMATOCRIT 40.6 % (42.0-52.0); HEMOGLOBIN 13.6 g/dl (13.5-17.5); MEAN CORPUSCULAR HEMOGLOBIN 33.1 pg (27.0-33.0); MEAN CORPUSCULAR HGB CONC 33.5 g/dl (32.0-36.5); MEAN CORPUSCULAR VOLUME 98.8 fl (80.0-96.0); PLATELET COUNT, AUTOMATED 115 10^3/uL (150-450); RED BLOOD COUNT 4.11 10^6/uL (4.30-6.10); WHITE BLOOD COUNT 5.6 10^3/uL (4.0-10.0)
[2019-06-23 08:25] LABS: CALCIUM LEVEL 8.7 MG/DL (8.8-10.2); CREATININE FOR GFR 1.51 MG/DL (0.70-1.30); GLOMERULAR FILTRATION RATE 48.7 (>42)
== END ==
LOC: SKLAB3 07:00
PROVIDERS: ATTEND Family Medicine
DX: D64.9 Anemia, unspecified (principal); I10 Essential (primary) hypertension

== ENCOUNTER → 2019-09-15 | Outpatient (REF) | payer MEDICARE, MEDICAID ==
[2019-09-15 09:42] LABS: HEMOGLOBIN 14.7 g/dl (13.5-17.5); MEAN CORPUSCULAR HEMOGLOBIN 32.5 pg (27.0-33.0); MEAN CORPUSCULAR HGB CONC 32.7 g/dl (32.0-36.5); MEAN CORPUSCULAR VOLUME 99.6 fl (80.0-96.0); PLATELET COUNT, AUTOMATED 124 10^3/uL (150-450); RED BLOOD COUNT 4.52 10^6/uL (4.30-6.10); WHITE BLOOD COUNT 6.3 10^3/uL (4.0-10.0)
[2019-09-15 10:00] LABS: ALBUMIN 3.6 GM/DL (3.2-5.2); BILIRUBIN,DIRECT 0.3 MG/DL (0.0-0.2); BILIRUBIN,TOTAL 0.9 MG/DL (0.2-1.0); CALCIUM LEVEL 9.5 MG/DL (8.8-10.2); CREATININE FOR GFR 1.69 MG/DL (0.70-1.30); GLOMERULAR FILTRATION RATE 42.8 (>42); POTASSIUM SERUM 4.4 MEQ/L (3.5-5.1); TOTAL PROTEIN 7.7 GM/DL (6.4-8.2)
== END ==
LOC: SKLAB3 07:00
PROVIDERS: ATTEND Family Medicine
DX: D64.9 Anemia, unspecified (principal); I10 Essential (primary) hypertension

== ENCOUNTER → 2019-12-15 | Outpatient (REF) | payer MEDICARE, MEDICAID ==
[2019-12-15 08:44] LABS: HEMATOCRIT 44.2 % (42.0-52.0); HEMOGLOBIN 14.6 g/dl (13.5-17.5); MEAN CORPUSCULAR HEMOGLOBIN 32.6 pg (27.0-33.0); MEAN CORPUSCULAR VOLUME 98.7 fl (80.0-96.0); PLATELET COUNT, AUTOMATED 125 10^3/uL (150-450); RED BLOOD COUNT 4.48 10^6/uL (4.30-6.10); WHITE BLOOD COUNT 5.7 10^3/uL (4.0-10.0)
[2019-12-15 09:04] LABS: CALCIUM LEVEL 9.1 MG/DL (8.8-10.2); CREATININE FOR GFR 1.59 MG/DL (0.70-1.30); GLOMERULAR FILTRATION RATE 45.9 (>42)
== END ==
LOC: SKLAB3 07:00
PROVIDERS: ATTEND Family Medicine
DX: D64.9 Anemia, unspecified (principal); I48.91 Unspecified atrial fibrillation

== ENCOUNTER → 2020-03-09 | Outpatient (REF) | LOC: SKLAB3 10:27 | PROVIDERS: ATTEND Internal Medicine | DX: Z03.818 Encounter for observation for suspected exposure to other biological agents ruled out (principal) ==

== ENCOUNTER → 2020-03-16 | Outpatient (REF) | payer MEDICARE, MEDICAID ==
[2020-03-16 09:04] LABS: HEMATOCRIT 41.9 % (42.0-52.0); HEMOGLOBIN 13.9 g/dl (13.5-17.5); MEAN CORPUSCULAR HEMOGLOBIN 32.7 pg (27.0-33.0); MEAN CORPUSCULAR HGB CONC 33.2 g/dl (32.0-36.5); MEAN CORPUSCULAR VOLUME 98.6 fl (80.0-96.0); PLATELET COUNT, AUTOMATED 107 10^3/uL (150-450); RED BLOOD COUNT 4.25 10^6/uL (4.30-6.10); WHITE BLOOD COUNT 5.8 10^3/uL (4.0-10.0)
[2020-03-16 09:38] LABS: BILIRUBIN,DIRECT 0.3 MG/DL (0.0-0.2); CALCIUM LEVEL 8.7 MG/DL (8.8-10.2); CREATININE FOR GFR 1.57 MG/DL (0.70-1.30); GLOMERULAR FILTRATION RATE 46.6 (>42); TOTAL PROTEIN 6.7 GM/DL (6.4-8.2)
== END ==
LOC: SKLAB3 08:39
PROVIDERS: ATTEND Family Medicine
DX: I10 Essential (primary) hypertension (principal); D64.9 Anemia, unspecified

== ENCOUNTER → 2020-05-03 | Outpatient (REF) | payer MEDICARE | LOC: M LAB REF 17:07 | PROVIDERS: ATTEND Physician Assistant | DX: C44.219 Basal cell carcinoma of skin of left ear and external auricular canal (principal) | CPT/HCPCS: 69100; 88305; G0463 ==

== ENCOUNTER → 2020-05-31 | Outpatient (REF) | payer MEDICARE ==
[~2020-05-31] MED LIST changes: -ASPI81TA85 PO; +ASPI81TA86 PO; +PANT40TA29 PO; -PANT40TA3 PO
== END ==
LOC: SKLAB3 12:52
DX: Z87.11 Personal history of peptic ulcer disease (principal)

== ENCOUNTER → 2020-06-01 | Outpatient (REF) | payer MEDICARE | LOC: SKLAB3 09:46 | DX: E03.9 Hypothyroidism, unspecified (principal) ==

== ENCOUNTER → 2020-09-09 | Outpatient (REF) | LOC: SKLAB3 11:17 | DX: Z20.828 Contact with and (suspected) exposure to other viral communicable diseases (principal) ==

== ENCOUNTER → 2020-09-14 | Outpatient (REF) | payer MEDICAID, MEDICARE ==
[2020-09-14 09:12] LABS: HEMATOCRIT 43.1 % (42.0-52.0); HEMOGLOBIN 14.1 g/dl (13.5-17.5); MEAN CORPUSCULAR HEMOGLOBIN 32.3 pg (27.0-33.0); MEAN CORPUSCULAR HGB CONC 32.7 g/dl (32.0-36.5); MEAN CORPUSCULAR VOLUME 98.9 fl (80.0-96.0); PLATELET COUNT, AUTOMATED 129 10^3/uL (150-450); RED BLOOD COUNT 4.36 10^6/uL (4.30-6.10); WHITE BLOOD COUNT 5.5 10^3/uL (4.0-10.0)
[2020-09-14 09:36] LABS: ALBUMIN 3.4 GM/DL (3.2-5.2); BILIRUBIN,TOTAL 1.1 MG/DL (0.2-1.0); CALCIUM LEVEL 9.6 MG/DL (8.8-10.2); CREATININE FOR GFR 1.6 MG/DL (0.70-1.30); GLOMERULAR FILTRATION RATE 45.5 (>42); TOTAL PROTEIN 7.1 GM/DL (6.4-8.2)
== END ==
LOC: SKLAB3 07:00
DX: I13.0 Hypertensive heart and chronic kidney disease with heart failure and stage 1 through stage 4 chronic kidney disease, or unspecified chronic kidney disease (principal); I50.9 Heart failure, unspecified; N18.9 Chronic kidney disease, unspecified

== ENCOUNTER → 2020-09-15 | Outpatient (REF) | payer MEDICARE, MEDICAID | LOC: SKLAB3 09-14 13:23 → EDSTATUS 10-08 13:45 | PROVIDERS: ATTEND Internal Medicine | DX: Z20.828 Contact with and (suspected) exposure to other viral communicable diseases (principal) ==

== ENCOUNTER → 2020-09-22 | Outpatient (REF) | payer MEDICARE, MEDICAID | LOC: SKLAB3 08:00 | PROVIDERS: ATTEND Internal Medicine | DX: Z20.828 Contact with and (suspected) exposure to other viral communicable diseases (principal) ==

== ENCOUNTER → 2020-09-29 | Outpatient (REF) | payer MEDICARE, MEDICAID | LOC: SKLAB3 08:00 | PROVIDERS: ATTEND Internal Medicine | DX: Z20.828 Contact with and (suspected) exposure to other viral communicable diseases (principal) ==

== ENCOUNTER → 2020-10-06 | Outpatient (REF) | payer MEDICARE, MEDICAID | LOC: SKLAB3 07:08 | DX: Z20.828 Contact with and (suspected) exposure to other viral communicable diseases (principal) ==

== ENCOUNTER → 2020-10-13 | Outpatient (REF) | payer MEDICARE, MEDICAID | LOC: SKLAB3 10:14 | DX: Z20.828 Contact with and (suspected) exposure to other viral communicable diseases (principal) ==

== ENCOUNTER → 2020-10-14 | Outpatient (REF) | payer MEDICARE, MEDICAID | LOC: SKLAB7 14:37 | DX: Z20.828 Contact with and (suspected) exposure to other viral communicable diseases (principal) ==

== ENCOUNTER → 2020-10-20 | Outpatient (REF) | payer MEDICARE, MEDICAID | LOC: SKLAB3 07:00 | DX: Z20.828 Contact with and (suspected) exposure to other viral communicable diseases (principal) ==

== ENCOUNTER → 2020-10-27 | Outpatient (REF) | payer MEDICARE, MEDICAID | LOC: SKLAB3 07:09 | DX: Z20.828 Contact with and (suspected) exposure to other viral communicable diseases (principal) ==

== ENCOUNTER → 2020-11-03 | Outpatient (REF) | payer MEDICARE, MEDICAID | LOC: SKLAB3 09:45 | PROVIDERS: ATTEND Internal Medicine | DX: Z11.52 Encounter for screening for COVID-19 (principal) ==

== ENCOUNTER → 2020-11-10 | Outpatient (REF) | payer MEDICARE, MEDICAID | LOC: SKLAB3 10:17 | PROVIDERS: ATTEND Internal Medicine | DX: Z11.52 Encounter for screening for COVID-19 (principal) ==

== ENCOUNTER → 2020-11-17 | Outpatient (REF) | payer MEDICARE, MEDICAID | LOC: SKLAB3 14:59 | PROVIDERS: ATTEND Internal Medicine | DX: Z20.822 Contact with and (suspected) exposure to COVID-19 (principal) ==

== ENCOUNTER → 2020-11-24 | Outpatient (REF) | payer MEDICARE, MEDICAID | LOC: SKLAB3 14:53 | PROVIDERS: ATTEND Internal Medicine | DX: Z20.822 Contact with and (suspected) exposure to COVID-19 (principal) ==

== ENCOUNTER → 2020-12-01 | Outpatient (REF) | payer MEDICARE, MEDICAID | LOC: SKLAB3 07:00 | PROVIDERS: ATTEND Internal Medicine | DX: Z11.52 Encounter for screening for COVID-19 (principal) ==

== ENCOUNTER → 2020-12-04 | Outpatient (REF) | payer MEDICARE, MEDICAID ==
[2020-12-04 21:49] LABS: HEMATOCRIT 42.3 % (42.0-52.0); HEMOGLOBIN 13.9 g/dl (13.5-17.5); MEAN CORPUSCULAR HEMOGLOBIN 32.6 pg (27.0-33.0); MEAN CORPUSCULAR HGB CONC 32.9 g/dl (32.0-36.5); MEAN CORPUSCULAR VOLUME 99.3 fl (80.0-96.0); PLATELET COUNT, AUTOMATED 130 10^3/uL (150-450); RED BLOOD COUNT 4.26 10^6/uL (4.30-6.10); WHITE BLOOD COUNT 16.2 10^3/uL (4.0-10.0)
[2020-12-04 22:18] LABS: CALCIUM LEVEL 9.3 MG/DL (8.8-10.2); CREATININE FOR GFR 2.13 MG/DL (0.70-1.30); GLOMERULAR FILTRATION RATE 32.7 (>42); POTASSIUM SERUM 4.5 MEQ/L (3.5-5.1)
== END ==
LOC: SKLAB3 20:47
DX: R39.15 Urgency of urination (principal)

== ENCOUNTER → 2020-12-04 | Outpatient (REF) | payer MEDICARE, MEDICAID ==
[2020-12-04 20:57] LABS: APPEARANCE, URINE CLEAR (CLEAR); BACTERIA, URINE AUTO NEGATIVE (NEGATIVE); BILIRUBIN, URINE AUTO NEGATIVE (NEGATIVE); BLOOD, URINE BLOOD NEGATIVE (NEGATIVE); COLOR, URINE YELLOW (YELLOW); GLUCOSE, URINE (UA) AUTO NEGATIVE (NEGATIVE); KETONE, URINE AUTO NEGATIVE (NEGATIVE); LEUKOCYTE ESTERASE, URINE AUTO NEGATIVE (NEGATIVE); MUCUS, URINE SMALL (NEGATIVE); NITRITE, URINE AUTO NEGATIVE (NEGATIVE); PROTEIN, URINE AUTO 2+ mg/dL (NEGATIVE); RBC, URINE AUTO 1 /HPF (0-3); SPECIFIC GRAVITY URINE AUTO 1.016 (1.002-1.035); SQUAMOUS EPITHELIAL CELL UR AU 0 /HPF (0-6); UROBILINOGEN, URINE AUTO 0.2 mg/dL (0.0-2.0); WBC, URINE AUTO 1 /HPF (0-3)
== END ==
LOC: SKLAB3 19:01
DX: R50.9 Fever, unspecified (principal)

== ENCOUNTER → 2020-12-06 | Outpatient (REF) | payer MEDICARE, MEDICAID ==
[2020-12-06 07:59] LABS: HEMATOCRIT 39.3 % (42.0-52.0); HEMOGLOBIN 12.7 g/dl (13.5-17.5); MEAN CORPUSCULAR HEMOGLOBIN 32.6 pg (27.0-33.0); MEAN CORPUSCULAR HGB CONC 32.3 g/dl (32.0-36.5); MEAN CORPUSCULAR VOLUME 100.8 fl (80.0-96.0); PLATELET COUNT, AUTOMATED 104 10^3/uL (150-450); WHITE BLOOD COUNT 8.1 10^3/uL (4.0-10.0)
[2020-12-06 08:24] LABS: CALCIUM LEVEL 8.9 MG/DL (8.8-10.2); CREATININE FOR GFR 2.08 MG/DL (0.70-1.30); GLOMERULAR FILTRATION RATE 33.6 (>42); POTASSIUM SERUM 4.3 MEQ/L (3.5-5.1)
== END ==
LOC: SKLAB3 07:02
DX: R50.9 Fever, unspecified (principal)

== ENCOUNTER → 2020-12-08 | Outpatient (REF) | payer MEDICARE, MEDICAID | LOC: SKLAB3 11:21 | PROVIDERS: ATTEND Internal Medicine | DX: Z20.822 Contact with and (suspected) exposure to COVID-19 (principal) ==

== ENCOUNTER → 2020-12-10 | Outpatient (REF) | payer MEDICARE, MEDICAID ==
[2020-12-10 09:16] LABS: HEMOGLOBIN 13.3 g/dl (13.5-17.5); MEAN CORPUSCULAR HEMOGLOBIN 33.8 pg (27.0-33.0); MEAN CORPUSCULAR HGB CONC 34.1 g/dl (32.0-36.5); PLATELET COUNT, AUTOMATED 134 10^3/uL (150-450); RED BLOOD COUNT 3.94 10^6/uL (4.30-6.10); WHITE BLOOD COUNT 5.6 10^3/uL (4.0-10.0)
[2020-12-10 09:51] LABS: ALBUMIN 3.2 GM/DL (3.2-5.2); BILIRUBIN,TOTAL 0.7 MG/DL (0.2-1.0); CALCIUM LEVEL 9.1 MG/DL (8.8-10.2); CREATININE FOR GFR 1.67 MG/DL (0.70-1.30); GLOMERULAR FILTRATION RATE 43.3 (>42); POTASSIUM SERUM 4.3 MEQ/L (3.5-5.1)
== END ==
LOC: SKLAB7 08:00
DX: D72.829 Elevated white blood cell count, unspecified (principal)

== ENCOUNTER → 2020-12-13 | Outpatient (REF) | payer MEDICARE, MEDICAID ==
[2020-12-13 20:04] LABS: TOTAL PROTEIN,RANDOM URINE 40.8 MG/DL (0.0-12.0)
== END ==
LOC: SKLAB3 12:43
DX: D72.829 Elevated white blood cell count, unspecified (principal); N39.0 Urinary tract infection, site not specified

== ENCOUNTER → 2020-12-15 | Outpatient (REF) | payer MEDICARE, MEDICAID | LOC: SKLAB3 07:00 | PROVIDERS: ATTEND Internal Medicine | DX: Z20.822 Contact with and (suspected) exposure to COVID-19 (principal) ==

== ENCOUNTER → 2020-12-22 | Outpatient (REF) | payer MEDICARE, MEDICAID | LOC: SKLAB3 15:03 | PROVIDERS: ATTEND Internal Medicine | DX: Z20.822 Contact with and (suspected) exposure to COVID-19 (principal) ==

== ENCOUNTER → 2020-12-23 | Outpatient (REF) | payer MEDICARE, MEDICAID ==
[2020-12-23 08:58] LABS: CALCIUM LEVEL 8.3 MG/DL (8.8-10.2); CREATININE FOR GFR 2.23 MG/DL (0.70-1.30); POTASSIUM SERUM 5.5 MEQ/L (3.5-5.1)
== END ==
LOC: SKLAB3 07:00
DX: I10 Essential (primary) hypertension (principal)

== ENCOUNTER → 2020-12-24 | Outpatient (REF) | payer MEDICARE, MEDICAID ==
[2020-12-24 08:37] LABS: CALCIUM LEVEL 8.1 MG/DL (8.8-10.2); CREATININE FOR GFR 1.84 MG/DL (0.70-1.30); GLOMERULAR FILTRATION RATE 38.7 (>42); POTASSIUM SERUM 5.4 MEQ/L (3.5-5.1)
== END ==
LOC: SKLAB3 07:00
DX: N18.9 Chronic kidney disease, unspecified (principal)

== ENCOUNTER → 2020-12-27 | Outpatient (REF) | payer MEDICARE, MEDICAID ==
[2020-12-27 09:07] LABS: CALCIUM LEVEL 8.7 MG/DL (8.8-10.2); CREATININE FOR GFR 1.72 MG/DL (0.70-1.30); GLOMERULAR FILTRATION RATE 41.8 (>42); POTASSIUM SERUM 4.9 MEQ/L (3.5-5.1)
== END ==
LOC: SKLAB3 11:00
DX: E87.6 Hypokalemia (principal)

== ENCOUNTER → 2021-01-05 | Outpatient (REF) | payer MEDICARE, MEDICAID | LOC: SKLAB3 14:45 | PROVIDERS: ATTEND Internal Medicine | DX: Z20.822 Contact with and (suspected) exposure to COVID-19 (principal) ==

== ENCOUNTER → 2021-01-11 | Outpatient (REF) | payer MEDICARE, MEDICAID | LOC: SKLAB3 07:00 | PROVIDERS: ATTEND Internal Medicine | DX: Z20.822 Contact with and (suspected) exposure to COVID-19 (principal) ==

== ENCOUNTER → 2021-01-12 | Outpatient (REF) | payer MEDICARE, MEDICAID | LOC: SKLAB3 14:53 | PROVIDERS: ATTEND Internal Medicine | DX: Z20.822 Contact with and (suspected) exposure to COVID-19 (principal) ==

== ENCOUNTER → 2021-01-28 | Outpatient (REF) | payer MEDICARE, MEDICAID | LOC: SKLAB3 08:43 | PROVIDERS: ATTEND Internal Medicine | DX: Z20.822 Contact with and (suspected) exposure to COVID-19 (principal) ==

== ENCOUNTER → 2021-02-10 | Outpatient (REF) | payer MEDICARE, MEDICAID ==
[2021-02-10 09:16] LABS: BASO # 0.1 10^3/uL (0.0-0.2); BASO % 1.3 % (0.0-1.0); EOS # 0.4 10^3/uL (0.0-0.5); EOS % 6.4 % (0.0-3.0); HEMATOCRIT 43.6 % (42.0-52.0); LYMPH # 1.5 10^3/uL (1.5-5.0); LYMPH % 26.8 % (24.0-44.0); MEAN CORPUSCULAR HEMOGLOBIN 32.3 pg (27.0-33.0); MEAN CORPUSCULAR HGB CONC 32.1 g/dl (32.0-36.5); MEAN CORPUSCULAR VOLUME 100.5 fl (80.0-96.0); MONO # 0.7 10^3/uL (0.0-0.8); MONO % 11.6 % (2.0-8.0); NEUTROPHILS % 53.7 % (36.0-66.0); PLATELET COUNT, AUTOMATED 122 10^3/uL (150-450); RED BLOOD COUNT 4.34 10^6/uL (4.30-6.10); WHITE BLOOD COUNT 5.6 10^3/uL (4.0-10.0)
== END ==
LOC: SKLAB3 07:00
DX: D64.9 Anemia, unspecified (principal)

== ENCOUNTER → 2021-03-15 | Outpatient (REF) | payer MEDICARE, MEDICAID ==
[2021-03-15 09:46] LABS: ALBUMIN 3.4 GM/DL (3.2-5.2); BILIRUBIN,TOTAL 1.2 MG/DL (0.2-1.0); CALCIUM LEVEL 8.9 MG/DL (8.8-10.2); CHOLESTEROL RISK RATIO 2.25 (<5); CREATININE FOR GFR 1.54 MG/DL (0.70-1.30); GLOMERULAR FILTRATION RATE 47.5 (>42); POTASSIUM SERUM 4.2 MEQ/L (3.5-5.1); TOTAL PROTEIN 7.3 GM/DL (6.4-8.2)
== END ==
LOC: SKLAB3 07:00
DX: D64.9 Anemia, unspecified (principal); E78.5 Hyperlipidemia, unspecified

== ENCOUNTER → 2021-03-30 | Outpatient (REF) | payer MEDICARE, MEDICAID ==
[2021-03-30 10:22] LABS: FOLATE 17.7 NG/ML (>5.4)
[2021-03-30 10:57] LABS: HEMOGLOBIN A1c 5.2 %
--- NOTE | 2021-04-02 00:16 | ECGEPIP ---
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
== END ==
LOC: SKLAB3 07:00
DX: R73.03 Prediabetes (principal); D75.89 Other specified diseases of blood and blood-forming organs; I42.2 Other hypertrophic cardiomyopathy

== ENCOUNTER → 2021-07-19 | Outpatient (REF) | payer MEDICARE, MEDICAID ==
[2021-07-19 09:58] LABS: CALCIUM LEVEL 9.3 MG/DL (8.8-10.2); PHOSPHORUS LEVEL 2.8 MG/DL (2.5-4.9)
[2021-07-19 10:01] LABS: PTH INTACT 75.9 PG/ML (18.5-88.0); TOTAL 25(OH) VITAMIN D 35.8 NG/ML (30.0-100.0)
== END ==
LOC: SKLAB3 07:00
PROVIDERS: ATTEND Neuromusculoskeletal Medicine & OMM
DX: N18.9 Chronic kidney disease, unspecified (principal); Z79.899 Other long term (current) drug therapy

== ENCOUNTER → 2021-08-16 | Outpatient (REF) | payer MEDICARE, MEDICAID ==
[2021-08-16 10:25] LABS: BASO # 0.1 10^3/uL (0.0-0.2); BASO % 0.8 % (0.0-1.0); EOS # 0.2 10^3/uL (0.0-0.5); EOS % 2.6 % (0.0-3.0); HEMOGLOBIN 13.8 g/dl (13.5-17.5); LYMPH # 1.4 10^3/uL (1.5-5.0); LYMPH % 20.8 % (24.0-44.0); MEAN CORPUSCULAR HEMOGLOBIN 33.2 pg (27.0-33.0); MEAN CORPUSCULAR HGB CONC 33.7 g/dl (32.0-36.5); MEAN CORPUSCULAR VOLUME 98.6 fl (80.0-96.0); MONO # 0.8 10^3/uL (0.0-0.8); MONO % 11.9 % (2.0-8.0); NEUTROPHILS # 4.2 10^3/uL (1.5-8.5); NEUTROPHILS % 63.7 % (36.0-66.0); PLATELET COUNT, AUTOMATED 167 10^3/uL (150-450); RED BLOOD COUNT 4.16 10^6/uL (4.30-6.10); WHITE BLOOD COUNT 6.6 10^3/uL (4.0-10.0)
== END ==
LOC: SKLAB3 09:21
PROVIDERS: ATTEND Neuromusculoskeletal Medicine & OMM
DX: D64.9 Anemia, unspecified (principal)

== ENCOUNTER → 2021-08-18 | Outpatient (REF) | payer MEDICARE, MEDICAID | LOC: SKLAB3 07:50 | PROVIDERS: ATTEND Neuromusculoskeletal Medicine & OMM | DX: Z20.822 Contact with and (suspected) exposure to COVID-19 (principal) ==

== ENCOUNTER → 2021-08-22 | Outpatient (REF) | payer MEDICARE, MEDICAID | LOC: SKLAB3 06:57 | PROVIDERS: ATTEND Internal Medicine | DX: Z20.822 Contact with and (suspected) exposure to COVID-19 (principal) ==

== ENCOUNTER → 2021-08-25 | Outpatient (REF) | payer MEDICARE, MEDICAID | LOC: SKLAB3 05:36 | PROVIDERS: ATTEND Internal Medicine | DX: Z20.822 Contact with and (suspected) exposure to COVID-19 (principal) ==

== ENCOUNTER → 2021-08-29 | Outpatient (REF) | payer MEDICARE, MEDICAID | LOC: SKLAB3 06:16 | PROVIDERS: ATTEND Internal Medicine | DX: Z20.822 Contact with and (suspected) exposure to COVID-19 (principal) ==

== ENCOUNTER → 2021-09-01 | Outpatient (REF) | payer MEDICARE, MEDICAID | LOC: SKLAB3 11:17 | PROVIDERS: ATTEND Neuromusculoskeletal Medicine & OMM | DX: Z20.822 Contact with and (suspected) exposure to COVID-19 (principal) ==

== ENCOUNTER → 2021-09-07 | Outpatient (REF) | payer MEDICARE, MEDICAID | LOC: SKLAB3 10:41 | PROVIDERS: ATTEND Neuromusculoskeletal Medicine & OMM | DX: Z20.822 Contact with and (suspected) exposure to COVID-19 (principal) ==

== ENCOUNTER → 2021-09-12 | Outpatient (REF) | payer MEDICARE, MEDICAID ==
[2021-09-12 10:10] LABS: CALCIUM LEVEL 9.2 MG/DL (8.8-10.2); CREATININE FOR GFR 1.57 MG/DL (0.70-1.30); GLOMERULAR FILTRATION RATE 46.3 (>42); POTASSIUM SERUM 4.3 MEQ/L (3.5-5.1); TOTAL PROTEIN 7.4 GM/DL (6.4-8.2)
== END ==
LOC: SKLAB3 07:00
PROVIDERS: ATTEND Neuromusculoskeletal Medicine & OMM
DX: I10 Essential (primary) hypertension (principal)

== ENCOUNTER → 2021-09-14 | Outpatient (REF) | payer MEDICARE, MEDICAID | LOC: SKLAB3 08:48 | PROVIDERS: ATTEND Neuromusculoskeletal Medicine & OMM | DX: Z20.822 Contact with and (suspected) exposure to COVID-19 (principal) ==

== ENCOUNTER → 2021-10-05 | Outpatient (REF) | payer MEDICARE, MEDICAID | LOC: SKLAB3 09:05 | PROVIDERS: ATTEND Neuromusculoskeletal Medicine & OMM | DX: Z20.822 Contact with and (suspected) exposure to COVID-19 (principal) ==

== ENCOUNTER → 2021-10-12 | Outpatient (REF) | payer MEDICARE, MEDICAID | LOC: SKLAB3 07:00 | PROVIDERS: ATTEND Neuromusculoskeletal Medicine & OMM | DX: Z20.822 Contact with and (suspected) exposure to COVID-19 (principal) ==

== ENCOUNTER → 2021-10-19 | Outpatient (REF) | payer MEDICARE, MEDICAID | LOC: SKLAB3 11:07 | PROVIDERS: ATTEND Neuromusculoskeletal Medicine & OMM | DX: Z20.822 Contact with and (suspected) exposure to COVID-19 (principal) ==

== ENCOUNTER → 2021-10-26 | Outpatient (REF) | payer MEDICARE, MEDICAID | LOC: SKLAB3 09:43 | PROVIDERS: ATTEND Neuromusculoskeletal Medicine & OMM | DX: Z20.822 Contact with and (suspected) exposure to COVID-19 (principal) ==

== ENCOUNTER → 2021-11-02 | Outpatient (REF) | payer MEDICARE, MEDICAID | LOC: SKLAB3 09:48 | PROVIDERS: ATTEND Neuromusculoskeletal Medicine & OMM | DX: Z20.822 Contact with and (suspected) exposure to COVID-19 (principal) ==

== ENCOUNTER → 2021-11-03 | Outpatient (REF) | payer MEDICARE, MEDICAID ==
[2021-11-03 13:52] LABS: APPEARANCE, URINE CLEAR (CLEAR); BACTERIA, URINE AUTO NEGATIVE (NEGATIVE); BILIRUBIN, URINE AUTO NEGATIVE (NEGATIVE); BLOOD, URINE BLOOD NEGATIVE (NEGATIVE); COLOR, URINE YELLOW (YELLOW); GLUCOSE, URINE (UA) AUTO NEGATIVE (NEGATIVE); KETONE, URINE AUTO NEGATIVE (NEGATIVE); LEUKOCYTE ESTERASE, URINE AUTO NEGATIVE (NEGATIVE); MUCUS, URINE SMALL (NEGATIVE); NITRITE, URINE AUTO NEGATIVE (NEGATIVE); PROTEIN, URINE AUTO 2+ mg/dL (NEGATIVE); RBC, URINE AUTO 0 /HPF (0-3); SPECIFIC GRAVITY URINE AUTO 1.016 (1.002-1.035); SQUAMOUS EPITHELIAL CELL UR AU 1 /HPF (0-6); UROBILINOGEN, URINE AUTO 0.2 mg/dL (0.0-2.0); WBC, URINE AUTO 0 /HPF (0-3)
== END ==
LOC: SKLAB3 13:27
PROVIDERS: ATTEND Neuromusculoskeletal Medicine & OMM
DX: R31.9 Hematuria, unspecified (principal)

== ENCOUNTER → 2021-12-27 | Outpatient (REF) | payer MEDICARE, MEDICAID ==
[~2021-12-27] MED LIST changes: +LOSA100T45 PO; -LOSA100T50 PO; +LOSA50TA28 PO; -LOSA50TA88 PO; -TOBR0.3S OD; +TOBR0.3S10 OD
[2021-12-27 08:53] LABS: HEMATOCRIT 40.7 % (42.0-52.0); HEMOGLOBIN 13.6 g/dl (13.5-17.5); MEAN CORPUSCULAR HEMOGLOBIN 32.9 pg (27.0-33.0); MEAN CORPUSCULAR HGB CONC 33.4 g/dl (32.0-36.5); MEAN CORPUSCULAR VOLUME 98.5 fl (80.0-96.0); PLATELET COUNT, AUTOMATED 134 10^3/uL (150-450); RED BLOOD COUNT 4.13 10^6/uL (4.30-6.10); WHITE BLOOD COUNT 5.3 10^3/uL (4.0-10.0)
[2021-12-27 09:11] LABS: BILIRUBIN,TOTAL 0.6 MG/DL (0.2-1.0); CALCIUM LEVEL 8.7 MG/DL (8.8-10.2); CREATININE FOR GFR 1.51 MG/DL (0.70-1.30); GLOMERULAR FILTRATION RATE 48.5 (>42); POTASSIUM SERUM 4.6 MEQ/L (3.5-5.1); TOTAL PROTEIN 6.6 GM/DL (6.4-8.2)
== END ==
LOC: SKLAB3 07:00
PROVIDERS: ATTEND Neuromusculoskeletal Medicine & OMM
DX: I50.9 Heart failure, unspecified (principal); I25.10 Atherosclerotic heart disease of native coronary artery without angina pectoris

== ENCOUNTER → 2022-02-14 | Outpatient (REF) | payer MEDICARE, MEDICAID ==
[2022-02-14 11:57] LABS: BASO # 0.1 10^3/uL (0.0-0.2); BASO % 0.8 % (0.0-1.0); EOS # 0.4 10^3/uL (0.0-0.5); EOS % 5.9 % (0.0-3.0); HEMATOCRIT 44.1 % (42.0-52.0); HEMOGLOBIN 14.7 g/dl (13.5-17.5); LYMPH # 1.7 10^3/uL (1.5-5.0); LYMPH % 26.2 % (24.0-44.0); MEAN CORPUSCULAR HEMOGLOBIN 33.2 pg (27.0-33.0); MEAN CORPUSCULAR HGB CONC 33.3 g/dl (32.0-36.5); MEAN CORPUSCULAR VOLUME 99.5 fl (80.0-96.0); MONO # 0.8 10^3/uL (0.0-0.8); MONO % 12.2 % (2.0-8.0); NEUTROPHILS # 3.5 10^3/uL (1.5-8.5); NEUTROPHILS % 54.7 % (36.0-66.0); PLATELET COUNT, AUTOMATED 134 10^3/uL (150-450); RED BLOOD COUNT 4.43 10^6/uL (4.30-6.10); WHITE BLOOD COUNT 6.3 10^3/uL (4.0-10.0)
== END ==
LOC: SKLAB3 11:44
PROVIDERS: ATTEND Neuromusculoskeletal Medicine & OMM
DX: D64.9 Anemia, unspecified (principal)

== ENCOUNTER → 2022-03-14 | Outpatient (REF) | payer MEDICARE, MEDICAID ==
[2022-03-14 08:50] LABS: CHOLESTEROL RISK RATIO 2.583 (<5)
== END ==
LOC: SKLAB3 11:24
PROVIDERS: ATTEND Neuromusculoskeletal Medicine & OMM
DX: E78.5 Hyperlipidemia, unspecified (principal)

== ENCOUNTER → 2022-04-13 | Outpatient (REF) | payer MEDICARE, MEDICAID ==
[2022-04-13 10:19] LABS: ALBUMIN 3.2 GM/DL (3.2-5.2); CALCIUM LEVEL 9.7 MG/DL (8.8-10.2); CREATININE FOR GFR 1.66 MG/DL (0.70-1.30); GLOMERULAR FILTRATION RATE 43.4 (>42); POTASSIUM SERUM 4.5 MEQ/L (3.5-5.1); TOTAL PROTEIN 7.2 GM/DL (6.4-8.2)
== END ==
LOC: SKLAB3 09:01
PROVIDERS: ATTEND Nurse Practitioner
DX: I10 Essential (primary) hypertension (principal)

== ENCOUNTER → 2022-05-22 | Outpatient (REF) | payer MEDICARE, MEDICAID ==
[2022-05-22 16:21] LABS: HEMATOCRIT 44.1 % (42.0-52.0); HEMOGLOBIN 14.8 g/dl (13.5-17.5); MEAN CORPUSCULAR HEMOGLOBIN 33.3 pg (27.0-33.0); MEAN CORPUSCULAR HGB CONC 33.6 g/dl (32.0-36.5); MEAN CORPUSCULAR VOLUME 99.1 fl (80.0-96.0); PLATELET COUNT, AUTOMATED 124 10^3/uL (150-450); RED BLOOD COUNT 4.45 10^6/uL (4.30-6.10); WHITE BLOOD COUNT 7.3 10^3/uL (4.0-10.0)
[2022-05-22 17:53] LABS: CREATININE FOR GFR 1.92 MG/DL (0.70-1.30); GLOMERULAR FILTRATION RATE 36.6 (>42); POTASSIUM SERUM 4.7 MEQ/L (3.5-5.1)
[2022-05-22 17:54] LABS: ALBUMIN 3.7 GM/DL (3.2-5.2); BILIRUBIN,TOTAL 1.3 MG/DL (0.2-1.0); CALCIUM LEVEL 9.3 MG/DL (8.8-10.2); TOTAL PROTEIN 7.8 GM/DL (6.4-8.2)
== END ==
LOC: SKLAB3 10:12 → SKLAB2 10:12
PROVIDERS: ATTEND Nurse Practitioner
DX: U07.1 COVID-19 (principal); Z79.899 Other long term (current) drug therapy

== ENCOUNTER → 2022-05-24 | Outpatient (REF) | payer MEDICARE, MEDICAID ==
[2022-05-24 08:37] LABS: HEMATOCRIT 40.5 % (42.0-52.0); HEMOGLOBIN 13.5 g/dl (13.5-17.5); MEAN CORPUSCULAR HEMOGLOBIN 32.9 pg (27.0-33.0); MEAN CORPUSCULAR HGB CONC 33.3 g/dl (32.0-36.5); MEAN CORPUSCULAR VOLUME 98.8 fl (80.0-96.0); PLATELET COUNT, AUTOMATED 105 10^3/uL (150-450); WHITE BLOOD COUNT 6.1 10^3/uL (4.0-10.0)
[2022-05-24 09:04] LABS: ALBUMIN 2.9 GM/DL (3.2-5.2); CALCIUM LEVEL 8.3 MG/DL (8.8-10.2); CREATININE FOR GFR 1.67 MG/DL (0.70-1.30); POTASSIUM SERUM 4.4 MEQ/L (3.5-5.1); TOTAL PROTEIN 6.3 GM/DL (6.4-8.2)
== END ==
LOC: SKLAB2 07:00
PROVIDERS: ATTEND Nurse Practitioner
DX: U07.1 COVID-19 (principal); Z79.899 Other long term (current) drug therapy

== ENCOUNTER → 2022-05-29 | Outpatient (REF) | payer MEDICARE, MEDICAID ==
[2022-05-29 09:58] LABS: HEMATOCRIT 41.8 % (42.0-52.0); HEMOGLOBIN 14.1 g/dl (13.5-17.5); MEAN CORPUSCULAR HEMOGLOBIN 32.6 pg (27.0-33.0); MEAN CORPUSCULAR HGB CONC 33.7 g/dl (32.0-36.5); MEAN CORPUSCULAR VOLUME 96.8 fl (80.0-96.0); PLATELET COUNT, AUTOMATED 142 10^3/uL (150-450); RED BLOOD COUNT 4.32 10^6/uL (4.30-6.10); WHITE BLOOD COUNT 9.4 10^3/uL (4.0-10.0)
[2022-05-29 10:07] LABS: ALBUMIN 2.9 GM/DL (3.2-5.2); BILIRUBIN,TOTAL 1.6 MG/DL (0.2-1.0); CALCIUM LEVEL 8.6 MG/DL (8.8-10.2); CREATININE FOR GFR 1.35 MG/DL (0.70-1.30); TOTAL PROTEIN 6.9 GM/DL (6.4-8.2)
== END ==
LOC: SKLAB2 09:47
PROVIDERS: ATTEND Nurse Practitioner
DX: U07.1 COVID-19 (principal); Z79.899 Other long term (current) drug therapy

== ENCOUNTER → 2022-06-01 | Outpatient (REF) | payer MEDICARE, MEDICAID ==
[2022-06-01 10:30] LABS: HEMATOCRIT 39.3 % (42.0-52.0); HEMOGLOBIN 13.5 g/dl (13.5-17.5); MEAN CORPUSCULAR HEMOGLOBIN 32.5 pg (27.0-33.0); MEAN CORPUSCULAR HGB CONC 34.4 g/dl (32.0-36.5); MEAN CORPUSCULAR VOLUME 94.5 fl (80.0-96.0); PLATELET COUNT, AUTOMATED 159 10^3/uL (150-450); RED BLOOD COUNT 4.16 10^6/uL (4.30-6.10); WHITE BLOOD COUNT 7.8 10^3/uL (4.0-10.0)
[2022-06-01 11:30] LABS: ALBUMIN 2.9 GM/DL (3.2-5.2); BILIRUBIN,TOTAL 1.4 MG/DL (0.2-1.0); CALCIUM LEVEL 8.7 MG/DL (8.8-10.2); CREATININE FOR GFR 1.98 MG/DL (0.70-1.30); GLOMERULAR FILTRATION RATE 35.4 (>42); TOTAL PROTEIN 6.6 GM/DL (6.4-8.2)
== END ==
LOC: SKLAB2 10:05
PROVIDERS: ATTEND Nurse Practitioner
DX: U07.1 COVID-19 (principal); Z79.899 Other long term (current) drug therapy

== ENCOUNTER → 2022-06-02 | Outpatient (REF) | payer MEDICARE, MEDICAID ==
[2022-06-02 11:26] LABS: CALCIUM LEVEL 8.3 MG/DL (8.8-10.2); CREATININE FOR GFR 1.49 MG/DL (0.70-1.30); GLOMERULAR FILTRATION RATE 49.1 (>42); POTASSIUM SERUM 4.2 MEQ/L (3.5-5.1)
== END ==
LOC: SKLAB2 07:00
PROVIDERS: ATTEND Neuromusculoskeletal Medicine & OMM
DX: E86.0 Dehydration (principal)

== ENCOUNTER → 2022-06-07 | Outpatient (CLI) | payer MEDICARE, MEDICAID | LOC: M RAD 09:45 | PROVIDERS: ATTEND Nurse Practitioner | DX: N17.9 Acute kidney failure, unspecified (principal); N20.0 Calculus of kidney; S20.219A Contusion of unspecified front wall of thorax, initial encounter; E86.0 Dehydration ==

== ENCOUNTER 2022-08-02 13:31 | Emergency (ER) | payer MEDICARE, MEDICAID ==
[~2022-08-02 13:31] MED LIST changes: -ACET1TAB55 PO; -ASPECRE TOP; -ASPI-161 PO; -ATOR1TAB21 PO; -CETI5TAB5 PO; -DRIS50003 PO; -ECOT81TA5 PO; -FAMO40TA3 PO; -FLOM0.4C39 PO; -FLUO10CA18 PO; -METO1TAB33 PO; -MILK400S12 PO; -OYST1TAB PO; -PROL60SO SC; -[UNRECOGNIZED DRUG - CODE] IM
[2022-08-02 14:00] LABS: VENOUS BASE EXCESS 1.9 (-2.0-2.0); VENOUS HCO3 28.3 MEQ/L (23.0-27.0); VENOUS O2 SATURATION 75.9 % (60.0-80.0); VENOUS PARTIAL PRESSURE CO2 51.3 mmHg (38.0-50.0); VENOUS PH 7.359 UNITS (7.330-7.430); VENOUS STANDARD HCO3 25.6 MEQ/L; VENOUS TOTAL CO2 29.8 MEQ/L (24.0-28.0)
[2022-08-02 14:05] LABS: BASO % 0.5 % (0.0-1.0); EOS # 0.1 10^3/uL (0.0-0.5); EOS % 1.2 % (0.0-3.0); HEMATOCRIT 39.8 % (42.0-52.0); HEMOGLOBIN 13.2 g/dl (13.5-17.5); LYMPH # 1.9 10^3/uL (1.5-5.0); LYMPH % 22.2 % (24.0-44.0); MEAN CORPUSCULAR HEMOGLOBIN 33.2 pg (27.0-33.0); MEAN CORPUSCULAR HGB CONC 33.2 g/dl (32.0-36.5); MONO # 1.1 10^3/uL (0.0-0.8); MONO % 13.1 % (2.0-8.0); NEUTROPHILS # 5.4 10^3/uL (1.5-8.5); NEUTROPHILS % 62.8 % (36.0-66.0); PLATELET COUNT, AUTOMATED 145 10^3/uL (150-450); RED BLOOD COUNT 3.98 10^6/uL (4.30-6.10); WHITE BLOOD COUNT 8.6 10^3/uL (4.0-10.0)
[2022-08-02] MEDS ORDERED: CETI5TAB5 PO (14:25)
[2022-08-02] MEDS ORDERED: ECOT81TA5 PO (14:25)
[2022-08-02] MEDS ORDERED: METO1TAB33 PO (14:25)
[2022-08-02] MEDS ORDERED: ATOR1TAB21 PO (14:25)
[2022-08-02] MEDS ORDERED: FLUO10CA18 PO (14:25)
[2022-08-02] MEDS ORDERED: PROL60SO SC (14:25)
[2022-08-02] MEDS ORDERED: FAMO40TA3 PO (14:25)
[2022-08-02] MEDS ORDERED: ASPECRE TOP (14:29)
[2022-08-02] MEDS ORDERED: DRIS50003 PO (14:29)
[2022-08-02] MEDS ORDERED: NS 1,000 ML IV SCH (14:30)
[2022-08-02] MEDS ORDERED: ACET1TAB55 PO (14:33)
[2022-08-02] MEDS ORDERED: [UNRECOGNIZED DRUG - CODE] IM (14:33)
[2022-08-02] MEDS ORDERED: OYST1TAB PO (14:33)
[2022-08-02] MEDS ORDERED: MILK400S12 PO (14:35)
[2022-08-02] MEDS ORDERED: HOME MED LIST COMPLETE! XX SCH (14:45)
[2022-08-02 14:47] LABS: CK-MB VALUE MASS 2.2 NG/ML (<3.6); MB/CK RELATIVE INDEX 3.06 (< OR =4)
[2022-08-02 14:52] LABS: RSV AMPLIFICATION NEGATIVE (NEGATIVE)
[2022-08-02 14:57] LABS: ACETAMINOPHEN LEVEL < 2.0 UG/ML (10.0-30.0); ALBUMIN 3.5 GM/DL (3.2-5.2); ALT/SGPT 25 U/L (12-78); BILIRUBIN,DIRECT 0.4 MG/DL (0.0-0.2); BILIRUBIN,TOTAL 1.1 MG/DL (0.2-1.0); BLOOD UREA NITROGEN 31 MG/DL (7-18); CALCIUM LEVEL 9.6 MG/DL (8.8-10.2); CARBON DIOXIDE LEVEL 28 MEQ/L (21-32); CHLORIDE LEVEL 106 MEQ/L (98-107); CREATININE FOR GFR 1.74 MG/DL (0.70-1.30); ETHYL ALCOHOL (ETHANOL) < 0.003 % (0.000-0.010); GLUCOSE, FASTING 102 MG/DL (70-100); POTASSIUM SERUM 4.2 MEQ/L (3.5-5.1); SALICYLATE LEVEL < 1.7 MG/DL (5.0-30.0); SODIUM LEVEL 140 MEQ/L (136-145); TOTAL PROTEIN 7.3 GM/DL (6.4-8.2)
[2022-08-02] MEDS ORDERED: FLOM0.4C39 PO (16:15)
[2022-08-02 16:16] VITALS: BP 152/82
[2022-08-02 16:42] LABS: AMPHETAMINES LEVEL URINE NEGATIVE (NEGATIVE); BARBITURATES URINE NEGATIVE (NEGATIVE); BENZODIAZEPINES URINE NEGATIVE (NEGATIVE); CANNABINOIDS URINE NEGATIVE (NEGATIVE); COCAINE METABOLITE URINE NEGATIVE (NEGATIVE); METHADONE URINE NEGATIVE (NEGATIVE); OPIATES URINE NEGATIVE (NEGATIVE); PHENCYCLIDINE URINE NEGATIVE (NEGATIVE)
[2022-08-03] MEDS ORDERED: FLOM0.4C39 PO (05:08)
[2022-08-03] MEDS ORDERED: ASPECRE TOP (05:08)
[2022-08-03] MEDS ORDERED: ASPI-161 PO (05:08)
== END 2022-08-02 16:53 | disposition home or self-care (01) ==
LOC: EDBD 13:31 → M ED 13:31
DX: R41.82 Altered mental status, unspecified (principal); E86.0 Dehydration; N42.9 Disorder of prostate, unspecified; I42.2 Other hypertrophic cardiomyopathy; R51.9 Headache, unspecified; G40.89 Other seizures; I10 Essential (primary) hypertension; J44.9 Chronic obstructive pulmonary disease, unspecified; K21.9 Gastro-esophageal reflux disease without esophagitis; D64.9 Anemia, unspecified; Z79.82 Long term (current) use of aspirin; Z79.811 Long term (current) use of aromatase inhibitors; Z79.899 Other long term (current) drug therapy

== ENCOUNTER 2022-08-02 20:28 | Inpatient (IN) | payer MEDICARE, MEDICAID ==
[~2022-08-02] VITALS: Ht 175.3 cm; Wt 67.0 kg
[~2022-08-02 20:28] MED LIST changes: +ACET1TAB55 PO; +ASPECRE TOP; +ATOR1TAB21 PO; +CETI5TAB5 PO; +DRIS50003 PO; +ECOT81TA5 PO; +FAMO40TA3 PO; +FLOM0.4C39 PO; +FLUO10CA18 PO; +METO1TAB33 PO; +MILK400S12 PO; +OYST1TAB PO; +PROL60SO SC; +[UNRECOGNIZED DRUG - CODE] IM
[2022-08-02] MEDS ORDERED: ACETAMINOPHEN 650 MG SUPP PR ONE (21:15)
[2022-08-03 00:04] LABS: ALBUMIN 3.4 GM/DL (3.2-5.2); BILIRUBIN,TOTAL 1.3 MG/DL (0.2-1.0); CALCIUM LEVEL 9.1 MG/DL (8.8-10.2); CREATININE FOR GFR 1.83 MG/DL (0.70-1.30); GLOMERULAR FILTRATION RATE 38.7 (>42); POTASSIUM SERUM 4.3 MEQ/L (3.5-5.1); TOTAL PROTEIN 7.1 GM/DL (6.4-8.2)
[2022-08-03 00:05] LABS: BASO # 0.1 10^3/uL (0.0-0.2); BASO % 0.4 % (0.0-1.0); EOS % 0.2 % (0.0-3.0); HEMATOCRIT 38.4 % (42.0-52.0); HEMOGLOBIN 12.9 g/dl (13.5-17.5); LYMPH # 1.1 10^3/uL (1.5-5.0); LYMPH % 9.3 % (24.0-44.0); MEAN CORPUSCULAR HEMOGLOBIN 33.6 pg (27.0-33.0); MEAN CORPUSCULAR HGB CONC 33.6 g/dl (32.0-36.5); MONO # 1.1 10^3/uL (0.0-0.8); MONO % 9.6 % (2.0-8.0); NEUTROPHILS # 9.4 10^3/uL (1.5-8.5); NEUTROPHILS % 79.9 % (36.0-66.0); PLATELET COUNT, AUTOMATED 134 10^3/uL (150-450); RED BLOOD COUNT 3.84 10^6/uL (4.30-6.10); WHITE BLOOD COUNT 11.8 10^3/uL (4.0-10.0)
[2022-08-03] MEDS ORDERED: CIPROFLOXACIN 400 MG in IV 1 EA IV ONE (00:20)
[2022-08-03 02:46] LABS: CK-MB VALUE MASS 3.6 NG/ML (<3.6); MB/CK RELATIVE INDEX 2.5 (< OR =4)
[2022-08-03] MEDS ORDERED: MAALOX 30 ML SUSP *UDC PO PRN (03:50)
[2022-08-03] MEDS ORDERED: MOM 30ML SUSPENSION UDC PO PRN (03:50)
[2022-08-03] MEDS ORDERED: ACETAMINOPHEN TAB 650MG DOSE (2X325MG) PO PRN (03:50)
[2022-08-03] MEDS ORDERED: ASPECRE TOP (05:08)
[2022-08-03] MEDS ORDERED: FLOM0.4C39 PO (05:08)
[2022-08-03] MEDS ORDERED: ASPI-161 PO (05:08)
[2022-08-03] MEDS ORDERED: HOME MED LIST COMPLETE! XX SCH (05:10)
[2022-08-03] MEDS ORDERED: LR 1,000 ML IV SCH (05:40)
[2022-08-03] MEDS ORDERED: BISACODYL 10 MG SUPP PR PRN (06:10)
[2022-08-03] MEDS ORDERED: DENOSUMAB 60MG/1ML SYRINGE (PROLIA) SC SCH (06:10)
[2022-08-03] MEDS: HEPARIN SOD (PORCINE) 5000UNITS/ML 1ML VIAL/SYRINGE SC SCH ×3 (06:35→21:04)
[2022-08-03] MEDS: DOCUSATE SODIUM 100MG CAPSULE PO SCH ×2 (09:08→21:04)
[2022-08-03] MEDS: TAMSULOSIN 0.4 MG CAP PO SCH (09:09)
[2022-08-03] MEDS: ASPIRIN 81MG ENTERIC TABLET PO SCH (09:09)
[2022-08-03] MEDS: OYSTER SHELL CALCIUM 500 MG TAB PO SCH ×2 (09:09→21:04)
[2022-08-03] MEDS: FAMOTIDINE 20 MG TAB PO SCH (09:09)
[2022-08-03] MEDS: FLUoxetine 10 MG CAP PO SCH (09:09)
[2022-08-03] MEDS: SENOKOT S TAB PO SCH (09:09)
[2022-08-03 10:55] LABS: BASO # 0.1 10^3/uL (0.0-0.2); BASO % 0.5 % (0.0-1.0); EOS # 0.1 10^3/uL (0.0-0.5); EOS % 0.6 % (0.0-3.0); HEMATOCRIT 37.1 % (42.0-52.0); HEMOGLOBIN 12.2 g/dl (13.5-17.5); LYMPH # 1.4 10^3/uL (1.5-5.0); LYMPH % 14.2 % (24.0-44.0); MEAN CORPUSCULAR HEMOGLOBIN 33.4 pg (27.0-33.0); MEAN CORPUSCULAR HGB CONC 32.9 g/dl (32.0-36.5); MEAN CORPUSCULAR VOLUME 101.6 fl (80.0-96.0); MONO # 1.3 10^3/uL (0.0-0.8); MONO % 13.5 % (2.0-8.0); NEUTROPHILS # 6.7 10^3/uL (1.5-8.5); PLATELET COUNT, AUTOMATED 118 10^3/uL (150-450); RED BLOOD COUNT 3.65 10^6/uL (4.30-6.10); WHITE BLOOD COUNT 9.5 10^3/uL (4.0-10.0)
[2022-08-03 11:38] LABS: BILIRUBIN,TOTAL 1.3 MG/DL (0.2-1.0); CALCIUM LEVEL 8.7 MG/DL (8.8-10.2); CREATININE FOR GFR 1.66 MG/DL (0.70-1.30); GLOMERULAR FILTRATION RATE 43.3 (>42); TOTAL PROTEIN 6.5 GM/DL (6.4-8.2)
[2022-08-03] MEDS: CIPROFLOXACIN 400 MG in IV 1 EA IV SCH (13:19)
[2022-08-03 17:32] VITALS: BP 167/77
[2022-08-03 20:55] VITALS: BP 154/71
[2022-08-03] MEDS ORDERED: METOPROLOL SUCC (TopROL XL) 50MG **XL** TAB PO SCH (21:00)
[2022-08-03 23:57] VITALS: BP 170/75
[2022-08-04] MEDS ORDERED: UNRESOLVED CLARIFICATION ENTRY XX SCH (00:01)
[2022-08-04] MEDS: CIPROFLOXACIN 400 MG in IV 1 EA IV SCH ×2 (01:06→13:48)
[2022-08-04 04:23] VITALS: BP 151/70
[2022-08-04] MEDS: HEPARIN SOD (PORCINE) 5000UNITS/ML 1ML VIAL/SYRINGE SC SCH ×3 (05:36→20:44)
[2022-08-04 06:01] LABS: BASO % 0.5 % (0.0-1.0); EOS # 0.2 10^3/uL (0.0-0.5); EOS % 1.8 % (0.0-3.0); HEMATOCRIT 35.5 % (42.0-52.0); HEMOGLOBIN 11.6 g/dl (13.5-17.5); LYMPH # 1.4 10^3/uL (1.5-5.0); LYMPH % 16.5 % (24.0-44.0); MEAN CORPUSCULAR HGB CONC 32.7 g/dl (32.0-36.5); MEAN CORPUSCULAR VOLUME 101.1 fl (80.0-96.0); MONO # 1.4 10^3/uL (0.0-0.8); MONO % 16.3 % (2.0-8.0); NEUTROPHILS # 5.4 10^3/uL (1.5-8.5); NEUTROPHILS % 64.4 % (36.0-66.0); PLATELET COUNT, AUTOMATED 114 10^3/uL (150-450); RED BLOOD COUNT 3.51 10^6/uL (4.30-6.10); WHITE BLOOD COUNT 8.4 10^3/uL (4.0-10.0)
[2022-08-04 06:33] LABS: CALCIUM LEVEL 8.6 MG/DL (8.8-10.2); CREATININE FOR GFR 1.49 MG/DL (0.70-1.30); GLOMERULAR FILTRATION RATE 49.1 (>42); POTASSIUM SERUM 3.9 MEQ/L (3.5-5.1)
[2022-08-04 07:57] VITALS: BP 161/72
[2022-08-04] MEDS: DOCUSATE SODIUM 100MG CAPSULE PO SCH ×2 (08:41→20:44)
[2022-08-04] MEDS: TAMSULOSIN 0.4 MG CAP PO SCH (08:41)
[2022-08-04] MEDS: ASPIRIN 81MG ENTERIC TABLET PO SCH (08:41)
[2022-08-04] MEDS: OYSTER SHELL CALCIUM 500 MG TAB PO SCH ×2 (08:42→20:44)
[2022-08-04] MEDS: FLUoxetine 10 MG CAP PO SCH (08:42)
[2022-08-04] MEDS: SENOKOT S TAB PO SCH (08:42)
[2022-08-04] MEDS: FAMOTIDINE 20 MG TAB PO SCH (08:42)
[2022-08-04 11:26] VITALS: BP 146/67
[2022-08-04] MEDS: METOPROLOL TART 50 MG TAB PO SCH ×2 (14:37→17:38)
[2022-08-04 15:47] VITALS: BP 104/66
[2022-08-04 15:51] LABS: CK-MB VALUE MASS 8.6 NG/ML (<3.6); MB/CK RELATIVE INDEX 3.87 (< OR =4)
[2022-08-04 15:58] LABS: FREE T4 1.45 NG/DL (0.76-1.46); MAGNESIUM LEVEL 1.9 MG/DL (1.8-2.4); THYROID STIMULATING HORMONE 1.42 uIU/ML (0.358-3.740)
[2022-08-04 20:00] VITALS: BP 133/83
[2022-08-04] MEDS: ATORVASTATIN 20 MG TAB PO SCH (20:44)
[2022-08-04 23:42] LABS: CK-MB VALUE MASS 9.6 NG/ML (<3.6); MB/CK RELATIVE INDEX 4.78 (< OR =4)
[2022-08-05] VITALS: BP 148/69
[2022-08-05] MEDS: METOPROLOL TART 50 MG TAB PO SCH ×4 (00:22→17:27)
[2022-08-05] MEDS: CIPROFLOXACIN 400 MG in IV 1 EA IV SCH ×2 (00:23→12:52)
[2022-08-05 04:00] VITALS: BP 152/90
[2022-08-05 04:09] LABS: BASO % 0.5 % (0.0-1.0); EOS # 0.1 10^3/uL (0.0-0.5); EOS % 1.6 % (0.0-3.0); HEMATOCRIT 37.6 % (42.0-52.0); HEMOGLOBIN 12.1 g/dl (13.5-17.5); LYMPH # 1.4 10^3/uL (1.5-5.0); MEAN CORPUSCULAR HEMOGLOBIN 32.5 pg (27.0-33.0); MEAN CORPUSCULAR HGB CONC 32.2 g/dl (32.0-36.5); MEAN CORPUSCULAR VOLUME 101.1 fl (80.0-96.0); MONO # 1.2 10^3/uL (0.0-0.8); MONO % 15.3 % (2.0-8.0); NEUTROPHILS # 5.1 10^3/uL (1.5-8.5); NEUTROPHILS % 64.5 % (36.0-66.0); PLATELET COUNT, AUTOMATED 127 10^3/uL (150-450); RED BLOOD COUNT 3.72 10^6/uL (4.30-6.10); WHITE BLOOD COUNT 7.9 10^3/uL (4.0-10.0)
[2022-08-05 04:37] LABS: CALCIUM LEVEL 8.6 MG/DL (8.8-10.2); CREATININE FOR GFR 1.5 MG/DL (0.70-1.30); GLOMERULAR FILTRATION RATE 48.7 (>42); POTASSIUM SERUM 3.9 MEQ/L (3.5-5.1)
[2022-08-05 05:12] LABS: CK-MB VALUE MASS 9.5 NG/ML (<3.6); MB/CK RELATIVE INDEX 4.75 (< OR =4)
[2022-08-05] MEDS: HEPARIN SOD (PORCINE) 5000UNITS/ML 1ML VIAL/SYRINGE SC SCH ×3 (06:17→20:30)
[2022-08-05 08:00] VITALS: BP 150/66
[2022-08-05] MEDS: DOCUSATE SODIUM 100MG CAPSULE PO SCH ×2 (08:57→20:30)
[2022-08-05] MEDS: FLUoxetine 10 MG CAP PO SCH (08:57)
[2022-08-05] MEDS: OYSTER SHELL CALCIUM 500 MG TAB PO SCH ×2 (08:57→20:30)
[2022-08-05] MEDS: SENOKOT S TAB PO SCH (08:57)
[2022-08-05] MEDS: TAMSULOSIN 0.4 MG CAP PO SCH (08:57)
[2022-08-05] MEDS: ASPIRIN 81MG ENTERIC TABLET PO SCH (08:58)
[2022-08-05] MEDS: FAMOTIDINE 20 MG TAB PO SCH (08:58)
[2022-08-05 12:00] VITALS: BP 142/70
[2022-08-05 16:00] VITALS: BP 160/75
[2022-08-05 20:00] VITALS: BP 158/80
[2022-08-06] VITALS (7 sets, daily range): BP systolic 147–176; BP diastolic 68–80
[2022-08-06] MEDS: CIPROFLOXACIN 400 MG in IV 1 EA IV SCH ×2 (00:04→13:28)
[2022-08-06] MEDS: METOPROLOL TART 50 MG TAB PO SCH ×4 (00:05→18:00)
[2022-08-06 04:42] LABS: BASO % 0.6 % (0.0-1.0); EOS # 0.1 10^3/uL (0.0-0.5); EOS % 1.1 % (0.0-3.0); HEMATOCRIT 36.1 % (42.0-52.0); HEMOGLOBIN 12.2 g/dl (13.5-17.5); LYMPH # 1.1 10^3/uL (1.5-5.0); LYMPH % 15.8 % (24.0-44.0); MEAN CORPUSCULAR HEMOGLOBIN 33.2 pg (27.0-33.0); MEAN CORPUSCULAR HGB CONC 33.8 g/dl (32.0-36.5); MEAN CORPUSCULAR VOLUME 98.4 fl (80.0-96.0); MONO # 1.1 10^3/uL (0.0-0.8); MONO % 15.8 % (2.0-8.0); NEUTROPHILS # 4.7 10^3/uL (1.5-8.5); NEUTROPHILS % 66.4 % (36.0-66.0); PLATELET COUNT, AUTOMATED 122 10^3/uL (150-450); RED BLOOD COUNT 3.67 10^6/uL (4.30-6.10)
[2022-08-06 05:22] LABS: CALCIUM LEVEL 8.6 MG/DL (8.8-10.2); CREATININE FOR GFR 1.35 MG/DL (0.70-1.30); POTASSIUM SERUM 3.6 MEQ/L (3.5-5.1)
[2022-08-06] MEDS: HEPARIN SOD (PORCINE) 5000UNITS/ML 1ML VIAL/SYRINGE SC SCH ×3 (06:24→20:41)
[2022-08-06] MEDS: OYSTER SHELL CALCIUM 500 MG TAB PO SCH ×2 (09:14→20:41)
[2022-08-06] MEDS: TAMSULOSIN 0.4 MG CAP PO SCH (09:14)
[2022-08-06] MEDS: FLUoxetine 10 MG CAP PO SCH (09:14)
[2022-08-06] MEDS: DOCUSATE SODIUM 100MG CAPSULE PO SCH ×2 (09:14→20:41)
[2022-08-06] MEDS: SENOKOT S TAB PO SCH (09:14)
[2022-08-06] MEDS: ASPIRIN 81MG ENTERIC TABLET PO SCH (09:14)
[2022-08-06] MEDS: FAMOTIDINE 20 MG TAB PO SCH (09:14)
[2022-08-06] MEDS ORDERED: METOPROLOL 5 MG/5 ML VIAL IV ONE (22:00)
[2022-08-06] MEDS ORDERED: METOPROLOL 5 MG/5 ML VIAL IV STA (22:19)
[2022-08-07] VITALS (7 sets, daily range): BP systolic 117–168; BP diastolic 57–88
[2022-08-07] MEDS: CIPROFLOXACIN 400 MG in IV 1 EA IV SCH ×2 (00:32→15:12)
[2022-08-07] MEDS: METOPROLOL TART 50 MG TAB PO SCH ×4 (00:33→18:00)
[2022-08-07] MEDS: HEPARIN SOD (PORCINE) 5000UNITS/ML 1ML VIAL/SYRINGE SC SCH ×3 (05:45→21:55)
[2022-08-07 06:09] LABS: BASO % 0.3 % (0.0-1.0); HEMATOCRIT 37.6 % (42.0-52.0); HEMOGLOBIN 12.4 g/dl (13.5-17.5); LYMPH % 9.5 % (24.0-44.0); MEAN CORPUSCULAR HEMOGLOBIN 32.5 pg (27.0-33.0); MEAN CORPUSCULAR VOLUME 98.7 fl (80.0-96.0); MONO # 1.5 10^3/uL (0.0-0.8); NEUTROPHILS # 8.2 10^3/uL (1.5-8.5); NEUTROPHILS % 75.8 % (36.0-66.0); PLATELET COUNT, AUTOMATED 117 10^3/uL (150-450); RED BLOOD COUNT 3.81 10^6/uL (4.30-6.10); WHITE BLOOD COUNT 10.8 10^3/uL (4.0-10.0)
[2022-08-07 06:42] LABS: CALCIUM LEVEL 8.4 MG/DL (8.8-10.2); CREATININE FOR GFR 1.38 MG/DL (0.70-1.30); GLOMERULAR FILTRATION RATE 53.6 (>42); POTASSIUM SERUM 3.7 MEQ/L (3.5-5.1)
[2022-08-07] MEDS: TAMSULOSIN 0.4 MG CAP PO SCH (09:38)
[2022-08-07] MEDS: ASPIRIN 81MG ENTERIC TABLET PO SCH (09:39)
[2022-08-07] MEDS: DOCUSATE SODIUM 100MG CAPSULE PO SCH ×2 (09:39→20:09)
[2022-08-07] MEDS: SENOKOT S TAB PO SCH (09:39)
[2022-08-07] MEDS: FAMOTIDINE 20 MG TAB PO SCH (09:39)
[2022-08-07] MEDS: OYSTER SHELL CALCIUM 500 MG TAB PO SCH ×2 (09:39→20:09)
[2022-08-07] MEDS: FLUoxetine 10 MG CAP PO SCH (09:42)
[2022-08-07] MEDS: POTASSIUM CHLORIDE 10MEQ SR TABLET PO SCH (10:35)
[2022-08-07 11:12] LABS: MAGNESIUM LEVEL 2.1 MG/DL (1.8-2.4)
[2022-08-07] MEDS: ATORVASTATIN 20 MG TAB PO SCH (20:09)
[2022-08-07] MEDS: NS 1,000 ML IV SCH (23:26)
[2022-08-08] VITALS (9 sets, daily range): BP systolic 41–168; BP diastolic 60–85
[2022-08-08] MEDS: CIPROFLOXACIN 400 MG in IV 1 EA IV SCH ×2 (00:40→17:21)
[2022-08-08] MEDS: HEPARIN SOD (PORCINE) 5000UNITS/ML 1ML VIAL/SYRINGE SC SCH ×2 (05:28→17:02)
[2022-08-08] MEDS: METOPROLOL TART 50 MG TAB PO SCH ×2 (05:28)
[2022-08-08 05:54] LABS: BASO # 0.1 10^3/uL (0.0-0.2); BASO % 0.5 % (0.0-1.0); EOS # 0.1 10^3/uL (0.0-0.5); EOS % 1.1 % (0.0-3.0); HEMATOCRIT 39.2 % (42.0-52.0); HEMOGLOBIN 13.1 g/dl (13.5-17.5); LYMPH # 1.2 10^3/uL (1.5-5.0); LYMPH % 12.2 % (24.0-44.0); MEAN CORPUSCULAR HEMOGLOBIN 33.2 pg (27.0-33.0); MEAN CORPUSCULAR HGB CONC 33.4 g/dl (32.0-36.5); MEAN CORPUSCULAR VOLUME 99.2 fl (80.0-96.0); MONO # 1.4 10^3/uL (0.0-0.8); MONO % 13.8 % (2.0-8.0); NEUTROPHILS # 7.2 10^3/uL (1.5-8.5); PLATELET COUNT, AUTOMATED 134 10^3/uL (150-450); RED BLOOD COUNT 3.95 10^6/uL (4.30-6.10)
[2022-08-08 06:16] LABS: CALCIUM LEVEL 8.4 MG/DL (8.8-10.2); CREATININE FOR GFR 1.41 MG/DL (0.70-1.30); GLOMERULAR FILTRATION RATE 52.3 (>42); POTASSIUM SERUM 3.4 MEQ/L (3.5-5.1)
[2022-08-08] MEDS: KCL 10MEQ/100ML SWI (KRUN) 10 MEQ in IV 1 EA IV SCH ×4 (06:31→11:03)
[2022-08-08] MEDS: ASPIRIN 81MG ENTERIC TABLET PO SCH (09:00)
[2022-08-08] MEDS: TAMSULOSIN 0.4 MG CAP PO SCH (09:00)
[2022-08-08] MEDS: DOCUSATE SODIUM 100MG CAPSULE PO SCH (09:00)
[2022-08-08] MEDS: POTASSIUM CHLORIDE 10MEQ SR TABLET PO SCH (09:00)
[2022-08-08] MEDS ORDERED: MOM 30ML SUSPENSION UDC FT PRN (10:05)
[2022-08-08] MEDS: POTASSIUM CHLORIDE 10% LIQ 20 MEQ/15 ML UDC GT SCH (10:32)
[2022-08-08] MEDS: DOCUSATE SOD LIQ 100MG/10ML UDC GT SCH ×2 (10:32→20:32)
[2022-08-08] MEDS: ASPIRIN 81 MG CHEW TABLET GT SCH (10:33)
[2022-08-08] MEDS: SENOKOT S TAB NG SCH (10:33)
[2022-08-08] MEDS: FAMOTIDINE 20 MG TAB FT SCH (10:33)
[2022-08-08] MEDS: OYSTER SHELL CALCIUM 500 MG TAB NG SCH ×2 (10:38→20:32)
[2022-08-08] MEDS: FLUoxetine 10 MG CAP FT SCH (10:38)
[2022-08-08] MEDS: METOPROLOL TART 50 MG TAB FT SCH ×2 (12:00→18:16)
[2022-08-08] MEDS ORDERED: ISOVUE-300 61% 50ML VIAL As Ordered ONE (12:21)
[2022-08-08] MEDS ORDERED: LIDOCAINE 1% SDV 30ML VIAL As Ordered ONE (12:21)
[2022-08-08] MEDS ORDERED: MUPIROCIN 2% OINT 22 GM TUBE As Ordered ONE (12:22)
[2022-08-08] MEDS ORDERED: fentaNYL 100 MCG/2 ML INJECTION As Ordered ONE (12:27)
[2022-08-08] MEDS ORDERED: LIDOCAINE 2% 100MG/5ML SDV (FOR ANES.) As Ordered ONE (12:27)
[2022-08-08] MEDS ORDERED: ONDANSETRON 4MG 2ML VIAL As Ordered ONE (12:27)
[2022-08-08] MEDS ORDERED: propofoL 200 MG/20 ML VIAL As Ordered ONE (12:27)
[2022-08-08] MEDS ORDERED: MIDAZOLAM INJ 2MG/2ML VIAL (J2250 PER 1MG) As Ordered ONE (12:27)
[2022-08-08] MEDS ORDERED: ceFAZolin SOD 2 GM in IV 1 EA IV ONE (13:00)
[2022-08-08] MEDS ORDERED: ceFAZolin 2 GM/D5W 50 ML IV BAG (J0690 PER 500MG) As Ordered ONE (13:10)
[2022-08-08] MEDS ORDERED: LABETALOL 100MG/20ML VIAL As Ordered ONE (13:46)
[2022-08-08] MEDS ORDERED: PHENYLephrine 500MCG 5ML (100MCG/ML) SYRINGE As Ordered ONE (14:52)
[2022-08-08] MEDS ORDERED: ACETAMINOPHEN 1000MG 100ML IV BTL (OFIRMEV) (J0131 PER 10MG) As Ordered ONE (14:52)
[2022-08-08] MEDS ORDERED: oxyCODONE 5MG TAB PO PRN (16:05)
[2022-08-08] MEDS ORDERED: LR 1,000 ML IV SCH (16:05)
[2022-08-08] MEDS ORDERED: ONDANSETRON 4MG 2ML VIAL IV PRN (16:05)
[2022-08-08] MEDS: NS 1,000 ML IV SCH (17:08)
[2022-08-08] MEDS: AMIODARONE 200 MG TAB (PACERONE) PO SCH (20:32)
[2022-08-08] MEDS: ASCORBIC ACID 250 MG TAB PO SCH (20:32)
[2022-08-08] MEDS ORDERED: D5W/0.45% SODIUM CHLORIDE 1,000 ML IV SCH (21:00)
[2022-08-09 00:17] VITALS: BP 136/62
[2022-08-09] MEDS: CIPROFLOXACIN 400 MG in IV 1 EA IV SCH ×2 (00:51→13:34)
[2022-08-09] MEDS: METOPROLOL TART 50 MG TAB FT SCH ×4 (00:52→17:36)
[2022-08-09 04:07] VITALS: BP 122/65
[2022-08-09 05:18] LABS: BASO # 0.1 10^3/uL (0.0-0.2); BASO % 0.3 % (0.0-1.0); EOS # 0.2 10^3/uL (0.0-0.5); EOS % 1.2 % (0.0-3.0); HEMATOCRIT 41.2 % (42.0-52.0); HEMOGLOBIN 13.8 g/dl (13.5-17.5); LYMPH # 0.9 10^3/uL (1.5-5.0); LYMPH % 5.2 % (24.0-44.0); MEAN CORPUSCULAR HEMOGLOBIN 33.3 pg (27.0-33.0); MEAN CORPUSCULAR HGB CONC 33.5 g/dl (32.0-36.5); MEAN CORPUSCULAR VOLUME 99.3 fl (80.0-96.0); MONO # 1.4 10^3/uL (0.0-0.8); MONO % 8.1 % (2.0-8.0); NEUTROPHILS # 14.4 10^3/uL (1.5-8.5); NEUTROPHILS % 84.6 % (36.0-66.0); PLATELET COUNT, AUTOMATED 133 10^3/uL (150-450); RED BLOOD COUNT 4.15 10^6/uL (4.30-6.10)
[2022-08-09 05:41] LABS: CALCIUM LEVEL 8.1 MG/DL (8.8-10.2); CREATININE FOR GFR 1.38 MG/DL (0.70-1.30); GLOMERULAR FILTRATION RATE 53.6 (>42)
[2022-08-09 08:00] VITALS: BP 139/80
[2022-08-09] MEDS ORDERED: TAMSULOSIN 0.4 MG CAP XX SCH (09:00)
[2022-08-09] MEDS: AMIODARONE 200 MG TAB (PACERONE) PO SCH ×3 (09:12→20:03)
[2022-08-09] MEDS: POTASSIUM CHLORIDE 10% LIQ 20 MEQ/15 ML UDC GT SCH (09:12)
[2022-08-09] MEDS: DOCUSATE SOD LIQ 100MG/10ML UDC GT SCH ×2 (09:12→20:04)
[2022-08-09] MEDS: ASPIRIN 81 MG CHEW TABLET GT SCH (09:12)
[2022-08-09] MEDS: FLUoxetine 10 MG CAP FT SCH (09:13)
[2022-08-09] MEDS: FAMOTIDINE 20 MG TAB FT SCH (09:13)
[2022-08-09] MEDS: OYSTER SHELL CALCIUM 500 MG TAB NG SCH ×2 (09:13→20:03)
[2022-08-09] MEDS: ASCORBIC ACID 250 MG TAB PO SCH ×2 (09:13→20:04)
[2022-08-09] MEDS: SENOKOT S TAB NG SCH (09:13)
[2022-08-09 12:00] VITALS: BP 114/65
[2022-08-09] MEDS: SODIUM CHLORIDE IV SCH (13:39)
[2022-08-09] MEDS: D5W IV SCH (13:39)
[2022-08-09] MEDS ORDERED: FUROSEMIDE 40MG/4ML VIAL (J1940) IV ONE (14:00)
[2022-08-09 16:00] VITALS: BP 120/60
[2022-08-09 20:00] VITALS: BP 147/93
[2022-08-09] MEDS: ATORVASTATIN 20 MG TAB NG SCH (20:03)
[2022-08-10] MEDS: METOPROLOL TART 50 MG TAB FT SCH ×4 (00:11→18:00)
[2022-08-10] MEDS: CIPROFLOXACIN 400 MG in IV 1 EA IV SCH ×2 (00:11→18:31)
[2022-08-10] MEDS: D5W IV SCH (00:15)
[2022-08-10] MEDS: SODIUM CHLORIDE IV SCH (00:15)
[2022-08-10 00:18] VITALS: BP 160/70
[2022-08-10 04:09] VITALS: BP 146/70
[2022-08-10 05:50] LABS: BASO # 0.1 10^3/uL (0.0-0.2); BASO % 0.5 % (0.0-1.0); EOS # 0.9 10^3/uL (0.0-0.5); EOS % 5.4 % (0.0-3.0); HEMOGLOBIN 13.2 g/dl (13.5-17.5); LYMPH # 1.3 10^3/uL (1.5-5.0); LYMPH % 8.2 % (24.0-44.0); MEAN CORPUSCULAR HEMOGLOBIN 32.9 pg (27.0-33.0); MEAN CORPUSCULAR HGB CONC 33.8 g/dl (32.0-36.5); MEAN CORPUSCULAR VOLUME 97.3 fl (80.0-96.0); MONO % 11.2 % (2.0-8.0); NEUTROPHILS % 74.1 % (36.0-66.0); PLATELET COUNT, AUTOMATED 121 10^3/uL (150-450); RED BLOOD COUNT 4.01 10^6/uL (4.30-6.10); WHITE BLOOD COUNT 16.2 10^3/uL (4.0-10.0)
[2022-08-10 06:21] LABS: MONO # 1.8 10^3/uL (0.0-0.8)
[2022-08-10 06:33] LABS: CALCIUM LEVEL 7.6 MG/DL (8.8-10.2); CREATININE FOR GFR 1.56 MG/DL (0.70-1.30); GLOMERULAR FILTRATION RATE 46.5 (>42)
[2022-08-10 07:45] VITALS: BP 134/70
[2022-08-10] MEDS: DOCUSATE SOD LIQ 100MG/10ML UDC GT SCH ×3 (08:10→20:59)
[2022-08-10] MEDS: AMIODARONE 200 MG TAB (PACERONE) PO SCH ×3 (08:11→16:00)
[2022-08-10] MEDS: POTASSIUM CHLORIDE 10% LIQ 20 MEQ/15 ML UDC GT SCH ×2 (08:11→09:00)
[2022-08-10] MEDS: FAMOTIDINE 20 MG TAB FT SCH ×2 (08:11→09:00)
[2022-08-10] MEDS: ASPIRIN 81 MG CHEW TABLET GT SCH ×2 (08:11→09:00)
[2022-08-10] MEDS: SENOKOT S TAB NG SCH ×2 (08:11→09:00)
[2022-08-10] MEDS: FLUoxetine 10 MG CAP FT SCH ×2 (08:11→09:00)
[2022-08-10] MEDS: ASCORBIC ACID 250 MG TAB PO SCH ×3 (08:11→21:00)
[2022-08-10] MEDS: OYSTER SHELL CALCIUM 500 MG TAB NG SCH ×3 (08:11→21:00)
[2022-08-10] MEDS ORDERED: ONDANSETRON 4MG 2ML VIAL IV SCH (08:35)
[2022-08-10] MEDS ORDERED: PROMETHAZINE 25MG/ML 1ML VIAL IV PRN (08:55)
[2022-08-10 11:35] VITALS: BP 135/84
[2022-08-10 15:26] VITALS: BP 160/77
[2022-08-10 20:00] VITALS: BP 148/67
[2022-08-11] VITALS: BP 138/77
[2022-08-11] MEDS: CIPROFLOXACIN 400 MG in IV 1 EA IV SCH (02:17)
[2022-08-11] MEDS: SODIUM CHLORIDE IV SCH (02:27)
[2022-08-11] MEDS: D5W IV SCH (02:27)
[2022-08-11 04:00] VITALS: BP 144/67
[2022-08-11] MEDS: METOPROLOL TART 50 MG TAB FT SCH ×4 (06:00→17:20)
[2022-08-11 07:39] LABS: BASO # 0.1 10^3/uL (0.0-0.2); BASO % 0.4 % (0.0-1.0); EOS # 0.7 10^3/uL (0.0-0.5); EOS % 6.3 % (0.0-3.0); HEMATOCRIT 36.8 % (42.0-52.0); HEMOGLOBIN 12.4 g/dl (13.5-17.5); LYMPH % 8.8 % (24.0-44.0); MEAN CORPUSCULAR HEMOGLOBIN 32.8 pg (27.0-33.0); MEAN CORPUSCULAR HGB CONC 33.7 g/dl (32.0-36.5); MEAN CORPUSCULAR VOLUME 97.4 fl (80.0-96.0); MONO % 15.2 % (2.0-8.0); NEUTROPHILS # 7.8 10^3/uL (1.5-8.5); NEUTROPHILS % 68.9 % (36.0-66.0); PLATELET COUNT, AUTOMATED 119 10^3/uL (150-450); RED BLOOD COUNT 3.78 10^6/uL (4.30-6.10); WHITE BLOOD COUNT 11.3 10^3/uL (4.0-10.0)
[2022-08-11 07:42] LABS: MONO # 1.7 10^3/uL (0.0-0.8)
[2022-08-11 08:00] VITALS: BP 145/70
[2022-08-11 08:15] LABS: ALBUMIN 2.2 GM/DL (3.2-5.2); ALT/SGPT 13 U/L (12-78); BILIRUBIN,TOTAL 0.7 MG/DL (0.2-1.0); BLOOD UREA NITROGEN 20 MG/DL (7-18); CALCIUM LEVEL 7.6 MG/DL (8.8-10.2); CARBON DIOXIDE LEVEL 27 MEQ/L (21-32); CHLORIDE LEVEL 107 MEQ/L (98-107); CREATININE FOR GFR 1.24 MG/DL (0.70-1.30); GLOMERULAR FILTRATION RATE > 60.0 (>42); GLUCOSE, FASTING 128 MG/DL (70-100); POTASSIUM SERUM 3.6 MEQ/L (3.5-5.1); SODIUM LEVEL 139 MEQ/L (136-145); TOTAL PROTEIN 5.7 GM/DL (6.4-8.2)
[2022-08-11] MEDS: DOCUSATE SOD LIQ 100MG/10ML UDC GT SCH ×2 (09:03→20:59)
[2022-08-11] MEDS: FAMOTIDINE 20 MG TAB FT SCH (09:03)
[2022-08-11] MEDS: AMIODARONE 200 MG TAB (PACERONE) PO SCH (09:03)
[2022-08-11] MEDS: ASPIRIN 81 MG CHEW TABLET GT SCH (09:03)
[2022-08-11] MEDS: ASCORBIC ACID 250 MG TAB PO SCH ×2 (09:03→20:53)
[2022-08-11] MEDS: POTASSIUM CHLORIDE 10% LIQ 20 MEQ/15 ML UDC GT SCH (09:03)
[2022-08-11] MEDS: SENOKOT S TAB NG SCH (09:03)
[2022-08-11] MEDS: OYSTER SHELL CALCIUM 500 MG TAB NG SCH ×2 (09:03→20:53)
[2022-08-11] MEDS: FLUoxetine 10 MG CAP FT SCH (09:04)
[2022-08-11 11:48] VITALS: BP 130/72
[2022-08-11 15:35] VITALS: BP 142/69
[2022-08-11] MEDS: SUCRALFATE SUSP 1GM/10ML UD PO SCH ×2 (17:21→20:53)
[2022-08-11] MEDS: FUROSEMIDE 40MG/4ML VIAL (J1940) IV SCH (17:21)
[2022-08-11 17:51] LABS: PLTBLUE- EDTA FREE CALC 108 K/mm3 (172-450); PLTBLUE- EDTA FREE MACHINE 98 10^3/uL (172-450)
[2022-08-11 20:00] VITALS: BP 148/73
[2022-08-11] MEDS: FONDAPARINUX SODIUM 2.5 MG/0.5 ML SYR (J1652 PER 0.5MG) SC SCH (20:53)
[2022-08-11] MEDS: ATORVASTATIN 20 MG TAB NG SCH (20:53)
[2022-08-11] MEDS: PANTOPRAZOLE 40MG VIAL IV SCH (20:53)
[2022-08-11] MEDS ORDERED: PANTOPRAZOLE 40MG TAB (PROTONIX) XX SCH (21:00)
[2022-08-12] VITALS (7 sets, daily range): BP systolic 120–174; BP diastolic 56–77
[2022-08-12] MEDS: METOPROLOL TART 50 MG TAB FT SCH ×5 (00:12→23:10)
[2022-08-12 06:28] LABS: HEMATOCRIT 36.2 % (42.0-52.0); HEMOGLOBIN 12.3 g/dl (13.5-17.5); MEAN CORPUSCULAR HEMOGLOBIN 33.2 pg (27.0-33.0); MEAN CORPUSCULAR VOLUME 97.6 fl (80.0-96.0); PLATELET COUNT, AUTOMATED 130 10^3/uL (150-450); RED BLOOD COUNT 3.71 10^6/uL (4.30-6.10); WHITE BLOOD COUNT 11.7 10^3/uL (4.0-10.0)
[2022-08-12 07:00] LABS: CALCIUM LEVEL 7.9 MG/DL (8.8-10.2); CREATININE FOR GFR 1.27 MG/DL (0.70-1.30); MAGNESIUM LEVEL 1.9 MG/DL (1.8-2.4); POTASSIUM SERUM 3.8 MEQ/L (3.5-5.1)
[2022-08-12] MEDS: ASCORBIC ACID 250 MG TAB PO SCH (09:42)
[2022-08-12] MEDS: AMIODARONE 200 MG TAB (PACERONE) PO SCH (09:42)
[2022-08-12] MEDS: FUROSEMIDE 40MG/4ML VIAL (J1940) IV SCH ×2 (09:42→18:06)
[2022-08-12] MEDS: PANTOPRAZOLE 40MG VIAL IV SCH (09:42)
[2022-08-12] MEDS: ASPIRIN 81 MG CHEW TABLET GT SCH (09:42)
[2022-08-12] MEDS: POTASSIUM CHLORIDE 10% LIQ 20 MEQ/15 ML UDC GT SCH (09:43)
[2022-08-12] MEDS: SENOKOT S TAB NG SCH (09:43)
[2022-08-12] MEDS: FLUoxetine 10 MG CAP FT SCH (09:44)
[2022-08-12] MEDS: DOCUSATE SOD LIQ 100MG/10ML UDC GT SCH ×2 (09:44→23:09)
[2022-08-12] MEDS: OYSTER SHELL CALCIUM 500 MG TAB NG SCH (09:45)
[2022-08-12] MEDS: SUCRALFATE SUSP 1GM/10ML UD PO SCH ×2 (09:52→12:45)
[2022-08-12] MEDS ORDERED: MAALOX 30 ML SUSP *UDC TF PRN (17:05)
[2022-08-12] MEDS: ATORVASTATIN 20 MG TAB PEG SCH (18:06)
[2022-08-12] MEDS ORDERED: ACETAMINOPHEN 325 MG/10.15 ML UDC TF PRN (19:50)
[2022-08-12] MEDS: SUCRALFATE SUSP 1GM/10ML UD TF SCH (23:09)
[2022-08-12] MEDS: OMEPRAZOLE SUSPENSION 20MG 10ML ORAL SYRINGE PEG SCH (23:09)
[2022-08-12] MEDS: FONDAPARINUX SODIUM 2.5 MG/0.5 ML SYR (J1652 PER 0.5MG) SC SCH (23:09)
[2022-08-12] MEDS: OYSTER SHELL CALCIUM 500 MG TAB PEG SCH (23:09)
[2022-08-12] MEDS: ASCORBIC ACID 250 MG TAB PEG SCH (23:10)
[2022-08-13] VITALS (7 sets, daily range): BP systolic 114–150; BP diastolic 53–70; O2SAT 92–94
[2022-08-13] MEDS: METOPROLOL TART 50 MG TAB FT SCH ×4 (06:11→23:33)
[2022-08-13 06:47] LABS: HEMOGLOBIN 11.9 g/dl (13.5-17.5); MEAN CORPUSCULAR HEMOGLOBIN 32.5 pg (27.0-33.0); MEAN CORPUSCULAR HGB CONC 33.1 g/dl (32.0-36.5); MEAN CORPUSCULAR VOLUME 98.4 fl (80.0-96.0); PLATELET COUNT, AUTOMATED 143 10^3/uL (150-450); RED BLOOD COUNT 3.66 10^6/uL (4.30-6.10); WHITE BLOOD COUNT 12.6 10^3/uL (4.0-10.0)
[2022-08-13 07:11] LABS: CALCIUM LEVEL 7.8 MG/DL (8.8-10.2); CREATININE FOR GFR 1.59 MG/DL (0.70-1.30); GLOMERULAR FILTRATION RATE 45.5 (>42); MAGNESIUM LEVEL 1.8 MG/DL (1.8-2.4); POTASSIUM SERUM 4.1 MEQ/L (3.5-5.1)
[2022-08-13] MEDS: POTASSIUM CHLORIDE 10% LIQ 20 MEQ/15 ML UDC GT SCH (08:13)
[2022-08-13] MEDS: DOCUSATE SOD LIQ 100MG/10ML UDC GT SCH ×2 (08:13→23:31)
[2022-08-13] MEDS: SUCRALFATE SUSP 1GM/10ML UD TF SCH ×4 (08:13→23:32)
[2022-08-13] MEDS: AMIODARONE 200 MG TAB (PACERONE) TF SCH (08:14)
[2022-08-13] MEDS: SENOKOT S TAB PEG SCH (08:14)
[2022-08-13] MEDS: OYSTER SHELL CALCIUM 500 MG TAB PEG SCH ×2 (08:14→23:35)
[2022-08-13] MEDS: ASCORBIC ACID 250 MG TAB PEG SCH ×2 (08:15→23:32)
[2022-08-13] MEDS: FLUoxetine 10 MG CAP FT SCH (08:15)
[2022-08-13] MEDS: OMEPRAZOLE SUSPENSION 20MG 10ML ORAL SYRINGE PEG SCH ×2 (08:15→23:33)
[2022-08-13] MEDS: ASPIRIN 81 MG CHEW TABLET TF SCH (08:15)
[2022-08-13] MEDS: FUROSEMIDE 40MG/4ML VIAL (J1940) IV SCH ×2 (08:16→23:32)
[2022-08-13] MEDS: ATORVASTATIN 20 MG TAB PEG SCH (08:21)
[2022-08-13] MEDS ORDERED: guaiFENesin SYRUP 200MG 10ML UDC PEG SCH (09:00)
[2022-08-13] MEDS: MAGNESIUM OXIDE 400MG TAB (MAG-OX) PO SCH ×2 (13:17→23:27)
[2022-08-13] MEDS: guaiFENesin SYRUP 200MG 10ML UDC PEG SCH ×3 (13:18→23:31)
[2022-08-13] MEDS: SODIUM CHLORIDE HYPERTONIC 3% 15ML NEB SOL INH SCH ×2 (16:16→20:00)
[2022-08-13] MEDS: IPRATROPIUM 0.5MG/ALBUTEROL 2.5MG INH SOL UD 3ML (DUONEB) NEB SCH ×2 (16:16→20:00)
[2022-08-13] MEDS: FONDAPARINUX SODIUM 2.5 MG/0.5 ML SYR (J1652 PER 0.5MG) SC SCH (23:32)
[2022-08-14] MEDS: SODIUM CHLORIDE HYPERTONIC 3% 15ML NEB SOL INH SCH ×4 (02:00→19:06)
[2022-08-14] MEDS: IPRATROPIUM 0.5MG/ALBUTEROL 2.5MG INH SOL UD 3ML (DUONEB) NEB SCH ×4 (02:00→19:06)
[2022-08-14 04:25] VITALS: BP 101/60
[2022-08-14] MEDS: METOPROLOL TART 50 MG TAB FT SCH ×3 (05:41→18:11)
[2022-08-14 05:42] LABS: HEMATOCRIT 37.5 % (42.0-52.0); HEMOGLOBIN 12.9 g/dl (13.5-17.5); MEAN CORPUSCULAR HEMOGLOBIN 33.2 pg (27.0-33.0); MEAN CORPUSCULAR HGB CONC 34.4 g/dl (32.0-36.5); MEAN CORPUSCULAR VOLUME 96.4 fl (80.0-96.0); PLATELET COUNT, AUTOMATED 160 10^3/uL (150-450); RED BLOOD COUNT 3.89 10^6/uL (4.30-6.10); WHITE BLOOD COUNT 15.8 10^3/uL (4.0-10.0)
[2022-08-14 06:03] LABS: CALCIUM LEVEL 7.8 MG/DL (8.8-10.2); CREATININE FOR GFR 1.84 MG/DL (0.70-1.30); GLOMERULAR FILTRATION RATE 38.5 (>42); MAGNESIUM LEVEL 1.8 MG/DL (1.8-2.4); POTASSIUM SERUM 4.3 MEQ/L (3.5-5.1)
[2022-08-14] MEDS ORDERED: LR 1,000 ML IV SCH (07:55)
[2022-08-14] MEDS: AMIODARONE 200 MG TAB (PACERONE) TF SCH (09:00)
[2022-08-14] MEDS ORDERED: PANTOPRAZOLE 40MG TAB (PROTONIX) PO SCH (09:00)
[2022-08-14] MEDS ORDERED: CEFEPIME HCL 1 GM in D5W MINI-BAG PLUS 50 ML IV SCH (10:00)
[2022-08-14] MEDS: guaiFENesin SYRUP 200MG 10ML UDC PEG SCH ×3 (11:14→23:05)
[2022-08-14] MEDS: POTASSIUM CHLORIDE 10% LIQ 20 MEQ/15 ML UDC GT SCH (11:15)
[2022-08-14] MEDS: ASPIRIN 81 MG CHEW TABLET TF SCH (11:15)
[2022-08-14] MEDS: OYSTER SHELL CALCIUM 500 MG TAB PEG SCH ×2 (11:15→23:06)
[2022-08-14] MEDS: SUCRALFATE SUSP 1GM/10ML UD TF SCH ×4 (11:16→23:05)
[2022-08-14] MEDS: OMEPRAZOLE SUSPENSION 20MG 10ML ORAL SYRINGE PEG SCH ×2 (11:16→23:06)
[2022-08-14] MEDS: FLUoxetine 10 MG CAP FT SCH (11:16)
[2022-08-14] MEDS: MAGNESIUM OXIDE 400MG TAB (MAG-OX) PO SCH ×2 (11:16→23:06)
[2022-08-14] MEDS: ASCORBIC ACID 250 MG TAB PEG SCH ×2 (11:16→23:06)
[2022-08-14] MEDS: DOCUSATE SOD LIQ 100MG/10ML UDC GT SCH ×2 (11:16→23:04)
[2022-08-14] MEDS: ATORVASTATIN 20 MG TAB PEG SCH (11:17)
[2022-08-14] MEDS: SENOKOT S TAB PEG SCH (11:21)
[2022-08-14 13:23] LABS: CALCIUM LEVEL 8.1 MG/DL (8.8-10.2); CREATININE FOR GFR 1.91 MG/DL (0.70-1.30); GLOMERULAR FILTRATION RATE 36.9 (>42); POTASSIUM SERUM 4.2 MEQ/L (3.5-5.1)
[2022-08-14 14:00] VITALS: BP 111/77
[2022-08-14 14:27] LABS: PERCENT SATURATION 22.3 % (19.7-50.0)
[2022-08-14 16:25] VITALS: O2SAT 93
[2022-08-14 17:10] VITALS: BP 120/80
[2022-08-14] MEDS ORDERED: SIMETHICONE 80MG CHEW TAB PEG PRN (20:25)
[2022-08-14 22:00] VITALS: BP 107/67
[2022-08-14] MEDS: FONDAPARINUX SODIUM 2.5 MG/0.5 ML SYR (J1652 PER 0.5MG) SC SCH (23:06)
[2022-08-14] MEDS: CEFEPIME HCL 2 GM in D5W MINI-BAG PLUS 50 ML IV SCH (23:12)
[2022-08-15] MEDS: METOPROLOL TART 50 MG TAB FT SCH ×5 (00:16→22:14)
[2022-08-15] MEDS: SODIUM CHLORIDE HYPERTONIC 3% 15ML NEB SOL INH SCH ×4 (02:00→20:00)
[2022-08-15] MEDS: IPRATROPIUM 0.5MG/ALBUTEROL 2.5MG INH SOL UD 3ML (DUONEB) NEB SCH ×4 (02:00→20:43)
[2022-08-15 05:43] LABS: APPEARANCE, URINE MANUAL CLEAR (CLEAR); BILIRUBIN, URINE MANUAL NEGATIVE (NEGATIVE); BLOOD URINE MANUAL NEGATIVE (NEGATIVE); COLOR, URINE MANUAL YELLOW (YELLOW); GLUCOSE, URINE (UA) MANUAL NEGATIVE (NEGATIVE); KETONE, URINE MANUAL NEGATIVE (NEGATIVE); LEUKOCYTE ESTERASE, URINE MAN NEGATIVE (NEGATIVE); NITRITE, URINE MANUAL NEGATIVE (NEGATIVE); PROTEIN, URINE MANUAL NEGATIVE (NEGATIVE); SPECIFIC GRAVITY,URINE MANUAL 1.017 (1.002-1.035); UROBILINOGEN, URINE MANUAL NORMAL (NORMAL)
[2022-08-15 05:49] LABS: HEMOGLOBIN 12.6 g/dl (13.5-17.5); MEAN CORPUSCULAR HGB CONC 34.1 g/dl (32.0-36.5); MEAN CORPUSCULAR VOLUME 96.9 fl (80.0-96.0); PLATELET COUNT, AUTOMATED 153 10^3/uL (150-450); RED BLOOD COUNT 3.82 10^6/uL (4.30-6.10); WHITE BLOOD COUNT 15.4 10^3/uL (4.0-10.0)
[2022-08-15 06:00] VITALS: BP 117/72
[2022-08-15 06:18] LABS: CALCIUM LEVEL 8.1 MG/DL (8.8-10.2); CREATININE FOR GFR 1.71 MG/DL (0.70-1.30); GLOMERULAR FILTRATION RATE 41.9 (>42); POTASSIUM SERUM 4.8 MEQ/L (3.5-5.1)
[2022-08-15] MEDS: POTASSIUM CHLORIDE 10% LIQ 20 MEQ/15 ML UDC GT SCH (09:00)
[2022-08-15] MEDS: CEFEPIME HCL 2 GM in D5W MINI-BAG PLUS 50 ML IV SCH (09:08)
[2022-08-15] MEDS: AMIODARONE 200 MG TAB (PACERONE) TF SCH (09:09)
[2022-08-15] MEDS: MAGNESIUM OXIDE 400MG TAB (MAG-OX) PO SCH ×2 (09:09→22:10)
[2022-08-15] MEDS: ASPIRIN 81 MG CHEW TABLET TF SCH (09:09)
[2022-08-15] MEDS: OYSTER SHELL CALCIUM 500 MG TAB PEG SCH ×2 (09:10→22:10)
[2022-08-15] MEDS: SUCRALFATE SUSP 1GM/10ML UD TF SCH ×4 (09:10→22:09)
[2022-08-15] MEDS: SENOKOT S TAB PEG SCH (09:10)
[2022-08-15] MEDS: ATORVASTATIN 20 MG TAB PEG SCH (09:10)
[2022-08-15] MEDS: ASCORBIC ACID 250 MG TAB PEG SCH ×2 (09:11→22:11)
[2022-08-15] MEDS: guaiFENesin SYRUP 200MG 10ML UDC PEG SCH ×3 (09:12→22:09)
[2022-08-15] MEDS: DOCUSATE SOD LIQ 100MG/10ML UDC GT SCH ×2 (09:19→22:09)
[2022-08-15] MEDS: OMEPRAZOLE SUSPENSION 20MG 10ML ORAL SYRINGE PEG SCH ×2 (09:19→22:10)
[2022-08-15] MEDS: FLUoxetine 10 MG CAP FT SCH (09:19)
[2022-08-15 14:00] VITALS: BP 124/58
[2022-08-15 22:00] VITALS: BP 134/79
[2022-08-15] MEDS: FONDAPARINUX SODIUM 2.5 MG/0.5 ML SYR (J1652 PER 0.5MG) SC SCH (22:10)
[2022-08-16] MEDS: IPRATROPIUM 0.5MG/ALBUTEROL 2.5MG INH SOL UD 3ML (DUONEB) NEB SCH ×4 (02:00→20:53)
[2022-08-16] MEDS: SODIUM CHLORIDE HYPERTONIC 3% 15ML NEB SOL INH SCH ×4 (02:00→20:53)
[2022-08-16] MEDS: METOPROLOL TART 50 MG TAB FT SCH ×3 (05:58→17:22)
[2022-08-16 06:00] VITALS: BP 129/74
[2022-08-16 06:16] LABS: HEMATOCRIT 34.3 % (42.0-52.0); HEMOGLOBIN 11.3 g/dl (13.5-17.5); MEAN CORPUSCULAR HEMOGLOBIN 32.4 pg (27.0-33.0); MEAN CORPUSCULAR HGB CONC 32.9 g/dl (32.0-36.5); MEAN CORPUSCULAR VOLUME 98.3 fl (80.0-96.0); PLATELET COUNT, AUTOMATED 149 10^3/uL (150-450); RED BLOOD COUNT 3.49 10^6/uL (4.30-6.10); WHITE BLOOD COUNT 10.9 10^3/uL (4.0-10.0)
[2022-08-16 06:52] LABS: CALCIUM LEVEL 7.7 MG/DL (8.8-10.2); CREATININE FOR GFR 1.74 MG/DL (0.70-1.30); MAGNESIUM LEVEL 2.3 MG/DL (1.8-2.4); POTASSIUM SERUM 4.5 MEQ/L (3.5-5.1)
[2022-08-16] MEDS: OMEPRAZOLE SUSPENSION 20MG 10ML ORAL SYRINGE PEG SCH ×2 (10:33→21:52)
[2022-08-16] MEDS: DOCUSATE SOD LIQ 100MG/10ML UDC GT SCH ×2 (10:34→21:51)
[2022-08-16] MEDS: ASPIRIN 81 MG CHEW TABLET TF SCH (10:34)
[2022-08-16] MEDS: POTASSIUM CHLORIDE 10% LIQ 20 MEQ/15 ML UDC GT SCH (10:34)
[2022-08-16] MEDS: SUCRALFATE SUSP 1GM/10ML UD TF SCH ×4 (10:34→21:51)
[2022-08-16] MEDS: guaiFENesin SYRUP 200MG 10ML UDC PEG SCH ×3 (10:34→21:51)
[2022-08-16] MEDS: AMIODARONE 200 MG TAB (PACERONE) TF SCH (10:35)
[2022-08-16] MEDS: FLUoxetine 10 MG CAP FT SCH (10:35)
[2022-08-16] MEDS: OYSTER SHELL CALCIUM 500 MG TAB PEG SCH ×2 (10:35→21:50)
[2022-08-16] MEDS: MAGNESIUM OXIDE 400MG TAB (MAG-OX) PO SCH ×2 (10:35→21:51)
[2022-08-16] MEDS: ASCORBIC ACID 250 MG TAB PEG SCH ×2 (10:35→21:51)
[2022-08-16] MEDS: ATORVASTATIN 20 MG TAB PEG SCH (10:36)
[2022-08-16] MEDS: SENOKOT S TAB PEG SCH (10:36)
[2022-08-16 12:43] VITALS: O2SAT 91
[2022-08-16 14:00] VITALS: BP 112/60
[2022-08-16] MEDS ORDERED: LevoFLOXacin 750 MG TABLET PEG ONE (16:20)
[2022-08-16 17:09] LABS: HEPARIN INDUCED PLATELET ABY 0.146 OD (0.000-0.400)
[2022-08-16] MEDS ORDERED: FUROSEMIDE 40MG/4ML VIAL (J1940) IV ONE (18:00)
[2022-08-16] MEDS ORDERED: LevoFLOXacin 750 MG TABLET PEG SCH (19:00)
[2022-08-16 20:05] VITALS: BP 102/57
[2022-08-16] MEDS: FONDAPARINUX SODIUM 2.5 MG/0.5 ML SYR (J1652 PER 0.5MG) SC SCH (21:51)
[2022-08-16 23:07] LABS: FOLATE 13.6 ng/mL (>3.0)
[2022-08-17] MEDS: METOPROLOL TART 50 MG TAB FT SCH ×5 (00:46→23:50)
[2022-08-17] MEDS: IPRATROPIUM 0.5MG/ALBUTEROL 2.5MG INH SOL UD 3ML (DUONEB) NEB SCH ×4 (02:00→19:41)
[2022-08-17] MEDS: SODIUM CHLORIDE HYPERTONIC 3% 15ML NEB SOL INH SCH ×4 (02:00→19:41)
[2022-08-17 03:39] VITALS: O2SAT 93
[2022-08-17 05:35] VITALS: BP 105/54
[2022-08-17 06:15] LABS: HEMATOCRIT 35.7 % (42.0-52.0); HEMOGLOBIN 11.7 g/dl (13.5-17.5); MEAN CORPUSCULAR HEMOGLOBIN 33.1 pg (27.0-33.0); MEAN CORPUSCULAR HGB CONC 32.8 g/dl (32.0-36.5); MEAN CORPUSCULAR VOLUME 100.8 fl (80.0-96.0); PLATELET COUNT, AUTOMATED 152 10^3/uL (150-450); RED BLOOD COUNT 3.54 10^6/uL (4.30-6.10); WHITE BLOOD COUNT 11.1 10^3/uL (4.0-10.0)
[2022-08-17 06:48] LABS: CALCIUM LEVEL 7.9 MG/DL (8.8-10.2); CREATININE FOR GFR 1.75 MG/DL (0.70-1.30); GLOMERULAR FILTRATION RATE 40.8 (>42); MAGNESIUM LEVEL 2.4 MG/DL (1.8-2.4); POTASSIUM SERUM 4.4 MEQ/L (3.5-5.1)
[2022-08-17] MEDS: OYSTER SHELL CALCIUM 500 MG TAB PEG SCH ×2 (09:41→20:48)
[2022-08-17] MEDS: AMIODARONE 200 MG TAB (PACERONE) TF SCH (09:41)
[2022-08-17] MEDS: ATORVASTATIN 20 MG TAB PEG SCH (09:41)
[2022-08-17] MEDS: SENOKOT S TAB PEG SCH (09:41)
[2022-08-17] MEDS: FLUoxetine 10 MG CAP FT SCH (09:41)
[2022-08-17] MEDS: ASPIRIN 81 MG CHEW TABLET TF SCH (09:41)
[2022-08-17] MEDS: POTASSIUM CHLORIDE 10% LIQ 20 MEQ/15 ML UDC GT SCH (09:42)
[2022-08-17] MEDS: OMEPRAZOLE SUSPENSION 20MG 10ML ORAL SYRINGE PEG SCH ×2 (09:42→20:49)
[2022-08-17] MEDS: guaiFENesin SYRUP 200MG 10ML UDC PEG SCH ×3 (09:42→20:49)
[2022-08-17] MEDS: MAGNESIUM OXIDE 400MG TAB (MAG-OX) PO SCH ×2 (09:42→20:50)
[2022-08-17] MEDS: ASCORBIC ACID 250 MG TAB PEG SCH ×2 (09:42→20:49)
[2022-08-17] MEDS: SUCRALFATE SUSP 1GM/10ML UD TF SCH ×4 (09:43→20:49)
[2022-08-17] MEDS: DOCUSATE SOD LIQ 100MG/10ML UDC GT SCH ×2 (09:43→20:49)
[2022-08-17 11:34] VITALS: O2SAT 91
[2022-08-17] MEDS: FUROSEMIDE 40 MG TAB PO SCH (12:10)
[2022-08-17 14:00] VITALS: BP 103/59
[2022-08-17] MEDS: FONDAPARINUX SODIUM 2.5 MG/0.5 ML SYR (J1652 PER 0.5MG) SC SCH (20:49)
[2022-08-17 21:10] VITALS: BP 114/68
[2022-08-17 23:42] VITALS: BP 124/64
[2022-08-18 01:36] VITALS: O2SAT 93
[2022-08-18] MEDS: SODIUM CHLORIDE HYPERTONIC 3% 15ML NEB SOL INH SCH ×2 (02:00→07:24)
[2022-08-18] MEDS: IPRATROPIUM 0.5MG/ALBUTEROL 2.5MG INH SOL UD 3ML (DUONEB) NEB SCH ×2 (02:00→07:24)
[2022-08-18 06:00] VITALS: BP 119/60
[2022-08-18] MEDS ORDERED: LevoFLOXacin 750 MG TABLET PEG SCH (06:00)
[2022-08-18] MEDS: METOPROLOL TART 50 MG TAB FT SCH ×2 (06:19→12:21)
[2022-08-18 08:46] LABS: BASO # 0.1 10^3/uL (0.0-0.2); BASO % 0.8 % (0.0-1.0); EOS # 0.3 10^3/uL (0.0-0.5); EOS % 2.4 % (0.0-3.0); HEMOGLOBIN 11.3 g/dl (13.5-17.5); LYMPH # 1.4 10^3/uL (1.5-5.0); MEAN CORPUSCULAR HGB CONC 33.2 g/dl (32.0-36.5); MEAN CORPUSCULAR VOLUME 99.4 fl (80.0-96.0); MONO # 1.5 10^3/uL (0.0-0.8); MONO % 12.9 % (2.0-8.0); NEUTROPHILS # 8.4 10^3/uL (1.5-8.5); NEUTROPHILS % 71.3 % (36.0-66.0); PLATELET COUNT, AUTOMATED 169 10^3/uL (150-450); RED BLOOD COUNT 3.42 10^6/uL (4.30-6.10); WHITE BLOOD COUNT 11.7 10^3/uL (4.0-10.0)
[2022-08-18 09:17] LABS: CREATININE FOR GFR 1.92 MG/DL (0.70-1.30); GLOMERULAR FILTRATION RATE 36.6 (>42); MAGNESIUM LEVEL 2.5 MG/DL (1.8-2.4); POTASSIUM SERUM 4.7 MEQ/L (3.5-5.1)
[2022-08-18] MEDS: ASPIRIN 81 MG CHEW TABLET TF SCH (09:45)
[2022-08-18] MEDS: SENOKOT S TAB PEG SCH (09:46)
[2022-08-18] MEDS: FLUoxetine 10 MG CAP FT SCH (09:46)
[2022-08-18] MEDS: MAGNESIUM OXIDE 400MG TAB (MAG-OX) PO SCH (09:46)
[2022-08-18] MEDS: OYSTER SHELL CALCIUM 500 MG TAB PEG SCH (09:46)
[2022-08-18] MEDS: FUROSEMIDE 40 MG TAB PO SCH (09:46)
[2022-08-18] MEDS: AMIODARONE 200 MG TAB (PACERONE) TF SCH (09:46)
[2022-08-18] MEDS: ATORVASTATIN 20 MG TAB PEG SCH (09:46)
[2022-08-18] MEDS: ASCORBIC ACID 250 MG TAB PEG SCH (09:46)
[2022-08-18] MEDS: POTASSIUM CHLORIDE 10% LIQ 20 MEQ/15 ML UDC GT SCH (09:47)
[2022-08-18] MEDS: guaiFENesin SYRUP 200MG 10ML UDC PEG SCH (09:47)
[2022-08-18] MEDS: DOCUSATE SOD LIQ 100MG/10ML UDC GT SCH (09:47)
[2022-08-18] MEDS: SUCRALFATE SUSP 1GM/10ML UD TF SCH ×2 (09:47→12:21)
[2022-08-18] MEDS: OMEPRAZOLE SUSPENSION 20MG 10ML ORAL SYRINGE PEG SCH (09:47)
[2022-08-18] MEDS ORDERED: SUCR1ORA TF (10:01)
[2022-08-18] MEDS ORDERED: LEVO1TAB40 PEG (10:01)
[2022-08-18] MEDS ORDERED: ESOM10SU PO (10:01)
[2022-08-18] MEDS ORDERED: AMIO200T49 TF (10:01)
[2022-08-18] MEDS ORDERED: GUAI100S51 PEG (10:01)
[2022-08-18 12:21] VITALS: BP 108/64
[2022-08-27] MEDS ORDERED: OMEPRAZOLE SUSPENSION 20MG 10ML ORAL SYRINGE PEG SCH (09:00)
== END 2022-08-18 13:09 | DRG 981 ==
LOC: M ED 20:28 → EDBD 20:28 → M ED INP 08-03 03:52 → ENRESERV 08-03 16:32 → M PCU 08-03 17:25 → M MSPAV 08-12 15:27
PROVIDERS: ADMIT Family Medicine; ATTEND Internal Medicine
PROC: 02H63JZ Insertion of Pacemaker Lead into Right Atrium, Percutaneous Approach (ICD-10-PCS; 2022-08-08)
PROC: 02HK3JZ Insertion of Pacemaker Lead into Right Ventricle, Percutaneous Approach (ICD-10-PCS; 2022-08-08)
PROC: 0JH606Z Insertion of Pacemaker, Dual Chamber into Chest Subcutaneous Tissue and Fascia, Open Approach (ICD-10-PCS; principal; 2022-08-08 13:00)
PROC: 0DH64UZ Insertion of Feeding Device into Stomach, Percutaneous Endoscopic Approach (ICD-10-PCS; 2022-08-10)
DX: N41.0 Acute prostatitis (principal); G93.41 Metabolic encephalopathy; J69.0 Pneumonitis due to inhalation of food and vomit; J96.01 Acute respiratory failure with hypoxia; K25.4 Chronic or unspecified gastric ulcer with hemorrhage; K20.81 Other esophagitis with bleeding; I13.0 Hypertensive heart and chronic kidney disease with heart failure and stage 1 through stage 4 chronic kidney disease, or unspecified chronic kidney disease; N17.9 Acute kidney failure, unspecified; I47.20 Ventricular tachycardia, unspecified; E46 Unspecified protein-calorie malnutrition; I50.32 Chronic diastolic (congestive) heart failure; I82.613 Acute embolism and thrombosis of superficial veins of upper extremity, bilateral; N18.30 Chronic kidney disease, stage 3 unspecified; E78.5 Hyperlipidemia, unspecified; K21.9 Gastro-esophageal reflux disease without esophagitis; N40.0 Benign prostatic hyperplasia without lower urinary tract symptoms; G47.33 Obstructive sleep apnea (adult) (pediatric); I49.5 Sick sinus syndrome; G80.9 Cerebral palsy, unspecified; R13.10 Dysphagia, unspecified; I48.0 Paroxysmal atrial fibrillation; F32.A Depression, unspecified; F41.9 Anxiety disorder, unspecified; F70 Mild intellectual disabilities; Z79.899 Other long term (current) drug therapy; Z79.82 Long term (current) use of aspirin; M41.9 Scoliosis, unspecified; K59.00 Constipation, unspecified; D69.6 Thrombocytopenia, unspecified; R29.6 Repeated falls

== ENCOUNTER → 2022-08-02 | Outpatient (REF) | payer MEDICARE, MEDICAID ==
[~2022-08-02] MED LIST changes: +ACET1TAB55 PO; +ASPECRE TOP; +ASPI-161 PO; +ATOR1TAB21 PO; +CETI5TAB5 PO; +DRIS50003 PO; +ECOT81TA5 PO; +FAMO40TA3 PO; +FLOM0.4C39 PO; +FLUO10CA18 PO; +METO1TAB33 PO; +MILK400S12 PO; +OYST1TAB PO; +PROL60SO SC; -REFROIN OP; +REFROIN OU; +[UNRECOGNIZED DRUG - CODE] IM
[2022-08-02 09:54] LABS: HEMATOCRIT 40.5 % (42.0-52.0); HEMOGLOBIN 13.3 g/dl (13.5-17.5); MEAN CORPUSCULAR HEMOGLOBIN 32.8 pg (27.0-33.0); MEAN CORPUSCULAR HGB CONC 32.8 g/dl (32.0-36.5); PLATELET COUNT, AUTOMATED 152 10^3/uL (150-450); RED BLOOD COUNT 4.05 10^6/uL (4.30-6.10); WHITE BLOOD COUNT 7.6 10^3/uL (4.0-10.0)
[2022-08-02 10:22] LABS: CALCIUM LEVEL 9.3 MG/DL (8.8-10.2); CREATININE FOR GFR 1.76 MG/DL (0.70-1.30); GLOMERULAR FILTRATION RATE 40.5 (>42); POTASSIUM SERUM 4.4 MEQ/L (3.5-5.1)
== END ==
LOC: SKLAB3 08:40
PROVIDERS: ATTEND Nurse Practitioner
DX: R41.82 Altered mental status, unspecified (principal); R29.6 Repeated falls

== ENCOUNTER → 2022-08-21 | Outpatient (REF) | payer MEDICARE, MEDICAID ==
[~2022-08-21] MED LIST changes: +AMIO200T49 TF; +ASPI-161 PO; +ESOM10SU PO; +GUAI100S51 PEG; +LEVO1TAB40 PEG; +SUCR1ORA TF
[2022-08-21 08:30] LABS: HEMATOCRIT 32.8 % (42.0-52.0); HEMOGLOBIN 10.8 g/dl (13.5-17.5); MEAN CORPUSCULAR HEMOGLOBIN 33.1 pg (27.0-33.0); MEAN CORPUSCULAR HGB CONC 32.9 g/dl (32.0-36.5); MEAN CORPUSCULAR VOLUME 100.6 fl (80.0-96.0); PLATELET COUNT, AUTOMATED 180 10^3/uL (150-450); RED BLOOD COUNT 3.26 10^6/uL (4.30-6.10); WHITE BLOOD COUNT 11.7 10^3/uL (4.0-10.0)
[2022-08-21 09:30] LABS: ALBUMIN 2.2 GM/DL (3.2-5.2); BILIRUBIN,TOTAL 0.9 MG/DL (0.2-1.0); CALCIUM LEVEL 8.4 MG/DL (8.8-10.2); CREATININE FOR GFR 2.41 MG/DL (0.70-1.30); GLOMERULAR FILTRATION RATE 28.2 (>42); POTASSIUM SERUM 4.6 MEQ/L (3.5-5.1); TOTAL PROTEIN 6.4 GM/DL (6.4-8.2)
== END ==
LOC: SKLAB3 07:00
PROVIDERS: ATTEND Nurse Practitioner
DX: N41.9 Inflammatory disease of prostate, unspecified (principal)

== ENCOUNTER → 2022-08-23 | Outpatient (REF) | payer MEDICARE, MEDICAID ==
[2022-08-23 10:13] LABS: CALCIUM LEVEL 8.2 MG/DL (8.8-10.2); CREATININE FOR GFR 1.85 MG/DL (0.70-1.30); GLOMERULAR FILTRATION RATE 38.2 (>42)
== END ==
LOC: SKLAB3 09:19
PROVIDERS: ATTEND Internal Medicine
DX: N18.9 Chronic kidney disease, unspecified (principal)

== ENCOUNTER → 2022-08-27 | Outpatient (REF) | payer MEDICARE, MEDICAID ==
[2022-08-27 08:16] LABS: HEMOGLOBIN 11.4 g/dl (13.5-17.5); MEAN CORPUSCULAR HEMOGLOBIN 32.5 pg (27.0-33.0); MEAN CORPUSCULAR HGB CONC 33.5 g/dl (32.0-36.5); MEAN CORPUSCULAR VOLUME 96.9 fl (80.0-96.0); PLATELET COUNT, AUTOMATED 196 10^3/uL (150-450); RED BLOOD COUNT 3.51 10^6/uL (4.30-6.10); WHITE BLOOD COUNT 9.4 10^3/uL (4.0-10.0)
== END ==
LOC: SKLAB3 07:00
PROVIDERS: ATTEND Nurse Practitioner
DX: K62.5 Hemorrhage of anus and rectum (principal)

== ENCOUNTER → 2022-08-28 | Outpatient (REF) | payer MEDICARE, MEDICAID ==
[2022-08-28 08:37] LABS: CALCIUM LEVEL 8.3 MG/DL (8.8-10.2); CREATININE FOR GFR 1.5 MG/DL (0.70-1.30); GLOMERULAR FILTRATION RATE 48.7 (>42); POTASSIUM SERUM 4.3 MEQ/L (3.5-5.1)
== END ==
LOC: SKLAB3 09:37
PROVIDERS: ATTEND Nurse Practitioner
DX: N18.9 Chronic kidney disease, unspecified (principal)

== ENCOUNTER → 2022-10-12 | Outpatient (REF) | payer MEDICARE, MEDICAID ==
[2022-10-12 09:33] LABS: HEMATOCRIT 36.6 % (42.0-52.0); HEMOGLOBIN 11.9 g/dl (13.5-17.5); MEAN CORPUSCULAR HEMOGLOBIN 32.9 pg (27.0-33.0); MEAN CORPUSCULAR HGB CONC 32.5 g/dl (32.0-36.5); MEAN CORPUSCULAR VOLUME 101.1 fl (80.0-96.0); PLATELET COUNT, AUTOMATED 153 10^3/uL (150-450); RED BLOOD COUNT 3.62 10^6/uL (4.30-6.10); WHITE BLOOD COUNT 8.7 10^3/uL (4.0-10.0)
[2022-10-12 11:24] LABS: ALBUMIN 2.8 G/DL (3.2-5.2); CALCIUM LEVEL 8.9 MG/DL (8.3-10.6); CREATININE FOR GFR 1.34 MG/DL (0.70-1.30); GLOMERULAR FILTRATION RATE 55.5 (>42); PHOSPHORUS LEVEL 3.7 MG/DL (2.4-5.1); POTASSIUM SERUM 4.4 MMOL/L (3.5-5.1)
== END ==
LOC: SKLAB3 07:00
PROVIDERS: ATTEND Nurse Practitioner
DX: I50.9 Heart failure, unspecified (principal)

== ENCOUNTER → 2022-11-16 | Outpatient (REF) | payer MEDICARE, MEDICAID ==
[2022-11-16 12:35] LABS: HEMATOCRIT 36.7 % (42.0-52.0); HEMOGLOBIN 12.4 g/dl (13.5-17.5); MEAN CORPUSCULAR HEMOGLOBIN 33.9 pg (27.0-33.0); MEAN CORPUSCULAR HGB CONC 33.8 g/dl (32.0-36.5); MEAN CORPUSCULAR VOLUME 100.3 fl (80.0-96.0); PLATELET COUNT, AUTOMATED 128 10^3/uL (150-450); RED BLOOD COUNT 3.66 10^6/uL (4.30-6.10); WHITE BLOOD COUNT 9.2 10^3/uL (4.0-10.0)
[2022-11-16 12:59] LABS: ALBUMIN 3.3 G/DL (3.2-5.2); BILIRUBIN,TOTAL 0.8 MG/DL (0.3-1.2); CREATININE FOR GFR 1.74 MG/DL (0.70-1.30); POTASSIUM SERUM 4.4 MMOL/L (3.5-5.1); TOTAL PROTEIN 7.5 G/DL (5.7-8.2)
== END ==
LOC: SKLAB3 11-16 07:00
PROVIDERS: ATTEND Internal Medicine
DX: R60.9 Edema, unspecified (principal); Z95.0 Presence of cardiac pacemaker

== ENCOUNTER → 2022-11-21 | Outpatient (REF) | payer MEDICARE, MEDICAID ==
[2022-11-21 08:27] LABS: CALCIUM LEVEL 8.9 MG/DL (8.3-10.6); CREATININE FOR GFR 1.92 MG/DL (0.70-1.30); GLOMERULAR FILTRATION RATE 36.6 (>42); POTASSIUM SERUM 4.1 MMOL/L (3.5-5.1)
[2022-11-21 13:21] LABS: APPEARANCE, URINE MANUAL CLEAR (CLEAR); COLOR, URINE MANUAL YELLOW (YELLOW)
[2022-11-21 13:22] LABS: BILIRUBIN, URINE MANUAL NEGATIVE (NEGATIVE); BLOOD URINE MANUAL NEGATIVE (NEGATIVE); GLUCOSE, URINE (UA) MANUAL NEGATIVE (NEGATIVE); KETONE, URINE MANUAL NEGATIVE (NEGATIVE); LEUKOCYTE ESTERASE, URINE MAN NEGATIVE (NEGATIVE); NITRITE, URINE MANUAL NEGATIVE (NEGATIVE); PROTEIN, URINE MANUAL TRACE mg/dL (NEGATIVE); SPECIFIC GRAVITY,URINE MANUAL 1.012 (1.002-1.035); UROBILINOGEN, URINE MANUAL NORMAL (NORMAL)
[2022-11-21 13:32] LABS: BACTERIA, URINE NONE SEEN; HYALINE CAST, URINE NONE SEEN /lpf (0-1); RBC, URINE 0-1 /hpf (0-3); SQUAMOUS EPITHELIAL CELL URINE 0 /hpf (SMALL AMT); WBC, URINE 0-1 /hpf (0-3)
== END ==
LOC: SKLAB3 06:56
PROVIDERS: ATTEND Nurse Practitioner
DX: I50.9 Heart failure, unspecified (principal); Z79.899 Other long term (current) drug therapy

== ENCOUNTER → 2022-11-30 | Outpatient (REF) | payer MEDICARE, MEDICAID | LOC: SKLAB3 11:36 | PROVIDERS: ATTEND Nurse Practitioner | DX: R10.9 Unspecified abdominal pain (principal); Z93.1 Gastrostomy status ==

== ENCOUNTER → 2023-02-13 | Outpatient (CLI) | payer MEDICARE, MEDICAID ==
[~2023-02-13] MED LIST changes: +BARIUM SULFATE 700 MG TABLET (E-Z-DISK) As Ordered ONE; +E-Z-PAQUE 96% w/w SUSP 176GM BTL As Ordered ONE; +VARIBAR NECTAR 40% w/v 240ML SUSP BTL As Ordered ONE; +VARIBAR PUDDING 40% w/v 230ML TUBE As Ordered ONE
== END ==
LOC: M RAD 11:12
PROVIDERS: ATTEND Neuromusculoskeletal Medicine & OMM
DX: R13.10 Dysphagia, unspecified (principal)

== ENCOUNTER → 2023-03-13 | Outpatient (REF) | payer MEDICARE, MEDICAID ==
[~2023-03-13] MED LIST changes: -BARIUM SULFATE 700 MG TABLET (E-Z-DISK) As Ordered ONE; -E-Z-PAQUE 96% w/w SUSP 176GM BTL As Ordered ONE; -LOSA100T45 PO; +LOSA100T46 PO; -VARIBAR NECTAR 40% w/v 240ML SUSP BTL As Ordered ONE; -VARIBAR PUDDING 40% w/v 230ML TUBE As Ordered ONE
[2023-03-13 08:22] LABS: CHOLESTEROL RISK RATIO 2.9 (<5); HDL CHOLESTEROL 35.4 MG/DL (>40); NON-HDL-C 67.6 MG/DL
== END ==
LOC: SKLAB3 09:37
PROVIDERS: ATTEND Internal Medicine
DX: E78.5 Hyperlipidemia, unspecified (principal)

== ENCOUNTER → 2023-05-14 | Outpatient (REF) | payer MEDICARE, MEDICAID ==
[2023-05-14 08:29] LABS: BASO % 0.3 % (0.0-1.0); EOS # 0.2 10^3/uL (0.0-0.5); EOS % 3.4 % (0.0-3.0); HEMATOCRIT 35.9 % (42.0-52.0); HEMOGLOBIN 12.1 g/dl (13.5-17.5); LYMPH # 1.4 10^3/uL (1.5-5.0); LYMPH % 19.7 % (24.0-44.0); MEAN CORPUSCULAR HEMOGLOBIN 33.3 pg (27.0-33.0); MEAN CORPUSCULAR HGB CONC 33.7 g/dl (32.0-36.5); MEAN CORPUSCULAR VOLUME 98.9 fl (80.0-96.0); MONO # 0.8 10^3/uL (0.0-0.8); NEUTROPHILS # 4.4 10^3/uL (1.5-8.5); NEUTROPHILS % 64.2 % (36.0-66.0); PLATELET COUNT, AUTOMATED 156 10^3/uL (150-450); RED BLOOD COUNT 3.63 10^6/uL (4.30-6.10); WHITE BLOOD COUNT 6.8 10^3/uL (4.0-10.0)
[2023-05-14 09:02] LABS: ALBUMIN 2.7 G/DL (3.2-5.2); BILIRUBIN,TOTAL 0.7 MG/DL (0.3-1.2); CALCIUM LEVEL 9.3 MG/DL (8.3-10.6); CREATININE FOR GFR 1.74 MG/DL (0.70-1.30); GLOMERULAR FILTRATION RATE 40.9 (>42); POTASSIUM SERUM 4.2 MMOL/L (3.5-5.1); TOTAL PROTEIN 6.3 G/DL (5.7-8.2)
== END ==
LOC: SKLAB3 09:20
PROVIDERS: ATTEND Nurse Practitioner
DX: D64.9 Anemia, unspecified (principal); I10 Essential (primary) hypertension

== ENCOUNTER → 2023-05-25 | Outpatient (CLI) | payer MEDICARE, MEDICAID | LOC: M RAD 12:06 | PROVIDERS: ATTEND Internal Medicine | DX: R06.02 Shortness of breath (principal); R05.9 Cough, unspecified; Z53.9 Procedure and treatment not carried out, unspecified reason ==

== ENCOUNTER → 2023-05-25 | Outpatient (REF) | payer MEDICARE, MEDICAID | LOC: SKLAB3 10:35 | PROVIDERS: ATTEND Nurse Practitioner | DX: R06.02 Shortness of breath (principal); R05.9 Cough, unspecified; Z93.1 Gastrostomy status ==

== ENCOUNTER → 2023-08-09 | Outpatient (REF) | payer MEDICARE, MEDICAID ==
[2023-08-09 11:36] LABS: HEMATOCRIT 37.5 % (42.0-52.0); HEMOGLOBIN 12.8 g/dl (13.5-17.5); MEAN CORPUSCULAR HEMOGLOBIN 34.4 pg (27.0-33.0); MEAN CORPUSCULAR HGB CONC 34.1 g/dl (32.0-36.5); MEAN CORPUSCULAR VOLUME 100.8 fl (80.0-96.0); PLATELET COUNT, AUTOMATED 156 10^3/uL (150-450); RED BLOOD COUNT 3.72 10^6/uL (4.30-6.10); WHITE BLOOD COUNT 8.2 10^3/uL (4.0-10.0)
[2023-08-09 12:05] LABS: CALCIUM LEVEL 8.5 MG/DL (8.3-10.6); CREATININE FOR GFR 1.67 MG/DL (0.70-1.30); GLOMERULAR FILTRATION RATE 42.9 (>42); POTASSIUM SERUM 4.2 MMOL/L (3.5-5.1)
== END ==
LOC: SKLAB3 10:50
PROVIDERS: ATTEND Nurse Practitioner
DX: R06.02 Shortness of breath (principal)

== ENCOUNTER → 2023-08-30 | Outpatient (REF) | payer MEDICARE, MEDICAID | LOC: M SFHCDERM 14:23 | PROVIDERS: ATTEND Physician Assistant | DX: C44.612 Basal cell carcinoma of skin of right upper limb, including shoulder (principal) ==

== ENCOUNTER → 2023-11-13 | Outpatient (REF) | payer MEDICARE, MEDICAID ==
[2023-11-13 10:32] LABS: BASO % 0.4 % (0.0-1.0); EOS # 0.2 10^3/uL (0.0-0.5); EOS % 1.5 % (0.0-3.0); HEMATOCRIT 36.4 % (42.0-52.0); HEMOGLOBIN 12.4 g/dl (13.5-17.5); LYMPH # 2.7 10^3/uL (1.5-5.0); LYMPH % 25.5 % (24.0-44.0); MEAN CORPUSCULAR HEMOGLOBIN 33.6 pg (27.0-33.0); MEAN CORPUSCULAR HGB CONC 34.1 g/dl (32.0-36.5); MEAN CORPUSCULAR VOLUME 98.6 fl (80.0-96.0); MONO # 1.3 10^3/uL (0.0-0.8); MONO % 12.2 % (2.0-8.0); NEUTROPHILS # 6.3 10^3/uL (1.5-8.5); NEUTROPHILS % 60.1 % (36.0-66.0); PLATELET COUNT, AUTOMATED 154 10^3/uL (150-450); RED BLOOD COUNT 3.69 10^6/uL (4.30-6.10); WHITE BLOOD COUNT 10.5 10^3/uL (4.0-10.0)
[2023-11-13 11:02] LABS: ALBUMIN 2.4 G/DL (3.2-5.2); BILIRUBIN,TOTAL 0.7 MG/DL (0.3-1.2); CALCIUM LEVEL 8.6 MG/DL (8.3-10.6); CREATININE FOR GFR 1.8 MG/DL (0.70-1.30); GLOMERULAR FILTRATION RATE 39.4 (>42); POTASSIUM SERUM 4.2 MMOL/L (3.5-5.1); TOTAL PROTEIN 6.3 G/DL (5.7-8.2)
== END ==
LOC: SKLAB3 09:36
PROVIDERS: ATTEND Internal Medicine
DX: D64.9 Anemia, unspecified (principal); I10 Essential (primary) hypertension

== ENCOUNTER → 2023-12-24 | Outpatient (REF) | payer MEDICARE, MEDICAID ==
[~2023-12-24] MED LIST changes: -ASPI-161 PO; +ASPI-615 PO
== END ==
LOC: M LAB REF 17:50
PROVIDERS: ATTEND Surgery
DX: C44.519 Basal cell carcinoma of skin of other part of trunk (principal)

== ENCOUNTER → 2023-12-27 | Outpatient (REF) | payer MEDICARE, MEDICAID ==
[2023-12-27 09:47] LABS: HEMATOCRIT 43.9 % (42.0-52.0); HEMOGLOBIN 14.6 g/dl (13.5-17.5); MEAN CORPUSCULAR HEMOGLOBIN 33.3 pg (27.0-33.0); MEAN CORPUSCULAR HGB CONC 33.3 g/dl (32.0-36.5); PLATELET COUNT, AUTOMATED 200 10^3/uL (150-450); RED BLOOD COUNT 4.39 10^6/uL (4.30-6.10); WHITE BLOOD COUNT 15.1 10^3/uL (4.0-10.0)
[2023-12-27 10:19] LABS: CALCIUM LEVEL 7.7 MG/DL (8.3-10.6); CREATININE FOR GFR 1.55 MG/DL (0.70-1.30); GLOMERULAR FILTRATION RATE 46.8 (>42); POTASSIUM SERUM 4.5 MMOL/L (3.5-5.1)
== END ==
LOC: SKLAB3 08:38
PROVIDERS: ATTEND Nurse Practitioner
DX: J98.4 Other disorders of lung (principal); J90 Pleural effusion, not elsewhere classified; R11.10 Vomiting, unspecified

== ENCOUNTER → 2024-01-21 | Outpatient (REF) | payer MEDICARE, MEDICAID | LOC: SKLAB3 22:12 | PROVIDERS: ATTEND Internal Medicine | DX: R09.89 Other specified symptoms and signs involving the circulatory and respiratory systems (principal) ==

== ENCOUNTER → 2024-01-22 | Outpatient (REF) | payer MEDICARE, MEDICAID ==
[2024-01-22 15:39] LABS: HEMATOCRIT 39.8 % (42.0-52.0); MEAN CORPUSCULAR HEMOGLOBIN 33.2 pg (27.0-33.0); MEAN CORPUSCULAR HGB CONC 32.7 g/dl (32.0-36.5); MEAN CORPUSCULAR VOLUME 101.5 fl (80.0-96.0); PLATELET COUNT, AUTOMATED 181 10^3/uL (150-450); RED BLOOD COUNT 3.92 10^6/uL (4.30-6.10); WHITE BLOOD COUNT 11.4 10^3/uL (4.0-10.0)
[2024-01-22 16:09] LABS: CREATININE FOR GFR 1.54 MG/DL (0.70-1.30); GLOMERULAR FILTRATION RATE 47.1 (>42); POTASSIUM SERUM 4.8 MMOL/L (3.5-5.1)
[2024-01-24 09:01] LABS: CALCIUM LEVEL 8.3 MG/DL (8.3-10.6)
== END ==
LOC: SKLAB3 15:08
PROVIDERS: ATTEND Nurse Practitioner Adult Health
DX: J06.9 Acute upper respiratory infection, unspecified (principal)

== ENCOUNTER → 2024-01-23 | Outpatient (REF) | payer MEDICARE, MEDICAID ==
[2024-01-23 12:07] LABS: HEMATOCRIT 40.1 % (42.0-52.0); HEMOGLOBIN 13.3 g/dl (13.5-17.5); MEAN CORPUSCULAR HEMOGLOBIN 33.2 pg (27.0-33.0); MEAN CORPUSCULAR HGB CONC 33.2 g/dl (32.0-36.5); PLATELET COUNT, AUTOMATED 155 10^3/uL (150-450); RED BLOOD COUNT 4.01 10^6/uL (4.30-6.10); WHITE BLOOD COUNT 17.5 10^3/uL (4.0-10.0)
[2024-01-23 12:37] LABS: CALCIUM LEVEL 8.9 MG/DL (8.3-10.6); CREATININE FOR GFR 1.53 MG/DL (0.70-1.30); GLOMERULAR FILTRATION RATE 47.5 (>42); POTASSIUM SERUM 4.4 MMOL/L (3.5-5.1)
== END ==
LOC: SKLAB3 09:13
PROVIDERS: ATTEND Nurse Practitioner Adult Health
DX: J06.9 Acute upper respiratory infection, unspecified (principal)

== ENCOUNTER → 2024-01-23 | Outpatient (REF) | payer MEDICARE, MEDICAID | LOC: SKLAB3 10:02 | PROVIDERS: ATTEND Nurse Practitioner Family | DX: J06.9 Acute upper respiratory infection, unspecified (principal) ==